=== PATIENT | female | born 1955 | race Two or more races ===

== ENCOUNTER 2019-05-02 16:45 | Emergency (ER) | payer OTHER ==
[~2019-05-02] VITALS: Ht 175.3 cm; Wt 141.5 kg
[2019-05-02 17:06] VITALS: BP 120/86
[2019-05-02 17:51] LABS: Basophils # (auto) 0.1 uL; Basophils % (auto) 0.9 % (0.0-2.0); Eosinophils # (auto) 0.2 uL; Eosinophils % (auto) 2.6 % (0.0-7.0); Hematocrit 48.8 % (36.0-46.0); Hemoglobin 16.1 g/dL (12.2-16.2); Lymphocytes # (auto) 1.4 uL; Lymphocytes % (auto) 18.1 % (10.0-50.0); Mean Corpuscular Hemoglobin 30.9 pg (28.0-32.0); Mean Corpuscular Volume 93.7 fL (80.0-100.0); Monocytes # (auto) 0.5 uL; Neutrophils # (auto) 5.6 uL; Neutrophils % (auto) 71.4 % (37.0-80.0); Nucleated Red Blood Cells % 0.1 %; Platelet Count (auto) 260 10^3/uL (140-450); Red Cell Distribution Width 14.4 % (11.8-14.3); White Blood Cell 7.8 10^3/uL (4.4-10.8)
[2019-05-02 17:52] LABS: Alanine Aminotransferase 23 U/L (13-56); Albumin 3.6 g/dL (3.4-5.0); Anion Gap 6 (5-15); Blood Urea Nitrogen 17 mg/dL (7-18); Calcium 8.6 mg/dL (8.5-10.1); Carbon Dioxide 29 mmol/L (21-32); Chloride 105 mmol/L (98-107); Glucose 108 mg/dL (74-106); Potassium 4.3 mmol/L (3.5-5.1); Sodium 140 mmol/L (136-145)
[2019-05-02 17:57] LABS: Alkaline Phosphatase 103 U/L (45-117); Aspartate Aminotransferase 30 U/L (15-37); BUN/Creatinine Ratio 20.5; Bilirubin, Total 0.6 mg/dL (0.2-1.0); GFR African American 90 mL/min; GFR Non-African American 74 mL/min; Total Protein 7.8 g/dL (6.4-8.2)
== END 2019-05-02 23:19 | disposition left against medical advice (07) ==
LOC: ER 16:56
DX: R55 Syncope and collapse (principal); F41.9 Anxiety disorder, unspecified; Z53.21 Procedure and treatment not carried out due to patient leaving prior to being seen by health care provider
CPT/HCPCS: 36415; 71045; 80053; 84484; 85025; 93005

== ENCOUNTER 2019-08-13 08:19 | Emergency (ER) | payer OTHER ==
[~2019-08-13] VITALS: Ht 175.3 cm; Wt 113.4 kg
[2019-08-13 08:57] LABS: Basophils # (auto) 0.1 uL; Basophils % (auto) 1.5 % (0.0-2.0); Eosinophils # (auto) 0.1 uL; Eosinophils % (auto) 1.9 % (0.0-7.0); Hemoglobin 16.7 g/dL (12.2-16.2); Lymphocytes % (auto) 23.9 % (10.0-50.0); Mean Corpuscular Hemoglobin 31.1 pg (28.0-32.0); Mean Corpuscular Hgb Conc. 33.3 g/dL (32.0-36.0); Mean Corpuscular Volume 93.4 fL (80.0-100.0); Monocytes # (auto) 0.6 uL; Monocytes % (auto) 13.9 % (0.0-12.0); Neutrophils # (auto) 2.4 uL; Neutrophils % (auto) 58.8 % (37.0-80.0); Nucleated Red Blood Cells % 0.2 %; Platelet Count (auto) 177 10^3/uL (140-450); Red Blood Cells 5.36 10^6/uL (4.0-5.20); Red Cell Distribution Width 14.7 % (11.8-14.3); White Blood Cell 4.1 10^3/uL (4.4-10.8)
[2019-08-13 09:14] LABS: Albumin 3.4 g/dL (3.4-5.0); Anion Gap 5 (5-15); Blood Urea Nitrogen 18 mg/dL (7-18); Calcium 8.4 mg/dL (8.5-10.1); Carbon Dioxide 27 mmol/L (21-32); Chloride 109 mmol/L (98-107); Glucose 93 mg/dL (74-106); Sodium 141 mmol/L (136-145)
[2019-08-13 09:20] LABS: Alanine Aminotransferase 21 U/L (13-56); Alkaline Phosphatase 65 U/L (45-117); Aspartate Aminotransferase 18 U/L (15-37); BUN/Creatinine Ratio 23.1; Bilirubin, Total 0.5 mg/dL (0.2-1.0); GFR African American 96 mL/min; GFR Non-African American 80 mL/min; Total Protein 7.7 g/dL (6.4-8.2)
[2019-08-13 11:34] VITALS: BP 128/75
== END 2019-08-13 11:35 | disposition home or self-care (01) ==
LOC: EDBD 08:19 → ER 08:27
DX: F41.9 Anxiety disorder, unspecified (principal); E78.5 Hyperlipidemia, unspecified; Z87.891 Personal history of nicotine dependence
CPT/HCPCS: 36415; 71045; 80053; 83880; 84484; 85025; 93005

== ENCOUNTER 2020-04-09 09:58 | Emergency (ER) | payer OTHER ==
[~2020-04-09] VITALS: Ht 175.3 cm; Wt 140.2 kg
[2020-04-09 10:45] LABS: Basophils # (auto) 0.1 10 ^3/uL (0-0.2); Basophils % (auto) 0.7 % (0.0-2.0); Eosinophils # (auto) 0.2 10 ^3/uL (0-0.8); Hematocrit 50.6 % (36.0-46.0); Hemoglobin 17.2 g/dL (12.2-16.2); Lymphocytes # (auto) 0.8 10 ^3/uL (0.4-5.4); Lymphocytes % (auto) 10.5 % (10.0-50.0); Mean Corpuscular Hemoglobin 32.2 pg (28.0-32.0); Mean Corpuscular Hgb Conc. 33.9 g/dL (32.0-36.0); Mean Corpuscular Volume 94.9 fL (80.0-100.0); Monocytes # (auto) 0.4 10 ^3/uL (0-1.3); Monocytes % (auto) 5.5 % (0.0-12.0); Neutrophils # (auto) 6.5 10 ^3/uL (1.6-8.6); Neutrophils % (auto) 81.3 % (37.0-80.0); Platelet Count (auto) 249 10^3/uL (140-450); Red Blood Cells 5.34 10^6/uL (4.0-5.20)
[2020-04-09 11:12] LABS: Albumin 3.9 g/dL (3.4-5.0); Anion Gap 3 (5-15); Blood Urea Nitrogen 14 mg/dL (7-18); Calcium 9.1 mg/dL (8.5-10.1); Carbon Dioxide 28 mmol/L (21-32); Chloride 106 mmol/L (98-107); Glucose 101 mg/dL (74-106); Potassium 3.9 mmol/L (3.5-5.1); Sodium 137 mmol/L (136-145)
[2020-04-09 11:18] LABS: Alanine Aminotransferase 26 U/L (13-56); Alkaline Phosphatase 84 U/L (45-117); Aspartate Aminotransferase 13 U/L (15-37); BUN/Creatinine Ratio 13.9; Bilirubin, Total 0.8 mg/dL (0.2-1.0); GFR African American 71 mL/min; GFR Non-African American 59 mL/min; Total Protein 8.6 g/dL (6.4-8.2)
[2020-04-09 16:44] VITALS: BP 127/85
[2020-04-09 17:15] LABS: INR 2.05 (0.9-1.15)
== END 2020-04-09 17:32 | disposition home or self-care (01) ==
LOC: ER 09:58
DX: R60.0 Localized edema (principal); I50.9 Heart failure, unspecified; I48.91 Unspecified atrial fibrillation; E78.5 Hyperlipidemia, unspecified; Z85.3 Personal history of malignant neoplasm of breast; Z88.6 Allergy status to analgesic agent
CPT/HCPCS: 36415; 80053; 83880; 84484; 85025; 85610; 85730; 93005; 93971

== ENCOUNTER 2021-10-24 12:30 | Emergency (ER) | payer OTHER ==
[~2021-10-24] VITALS: Ht 175.3 cm; Wt 145.1 kg
[2021-10-24 14:17] LABS: Basophils # (auto) 0.1 10 ^3/uL (0-0.2); Eosinophils # (auto) 0.2 10 ^3/uL (0-0.8); Eosinophils % (auto) 2.8 % (0.0-7.0); Hematocrit 46.5 % (36.0-46.0); Hemoglobin 15.4 g/dL (12.2-16.2); Lymphocytes # (auto) 1.2 10 ^3/uL (0.4-5.4); Mean Corpuscular Hemoglobin 30.8 pg (28.0-32.0); Mean Corpuscular Hgb Conc. 33.2 g/dL (32.0-36.0); Mean Corpuscular Volume 92.6 fL (80.0-100.0); Monocytes # (auto) 0.6 10 ^3/uL (0-1.3); Monocytes % (auto) 8.6 % (0.0-12.0); Neutrophils # (auto) 5.1 10 ^3/uL (1.6-8.6); Neutrophils % (auto) 70.6 % (37.0-80.0); Nucleated Red Blood Cells % 0.1 %; Red Blood Cells 5.02 10^6/uL (4.0-5.20); Red Cell Distribution Width 14.1 % (11.8-14.3); White Blood Cell 7.2 10^3/uL (4.4-10.8)
[2021-10-24 14:59] LABS: Albumin 3.4 g/dL (3.4-5.0); Calcium 9.1 mg/dL (8.5-10.1); Potassium 4.1 mmol/L (3.5-5.1)
[2021-10-24 15:06] LABS: Bilirubin, Total 0.8 mg/dL (0.2-1.0); Total Protein 7.3 g/dL (6.4-8.2)
[2021-10-24 15:23] VITALS: BP 120/70
[2021-10-24 15:50] LABS: Urine Bacteria NONE SEEN /hpf (None Seen); Urine Blood Negative /uL (Negative); Urine WBC 1 /hpf (0 - 5)
== END 2021-10-24 16:15 | disposition home or self-care (01) ==
LOC: ER 12:30
DX: M79.10 Myalgia, unspecified site (principal); R07.89 Other chest pain; M50.30 Other cervical disc degeneration, unspecified cervical region; I48.91 Unspecified atrial fibrillation; E78.5 Hyperlipidemia, unspecified; Z87.891 Personal history of nicotine dependence; Z88.5 Allergy status to narcotic agent; V49.9XXA Car occupant (driver) (passenger) injured in unspecified traffic accident, initial encounter; Y93.89 Activity, other specified; Y92.89 Other specified places as the place of occurrence of the external cause; Y99.8 Other external cause status
CPT/HCPCS: 36415; 71250; 72125; 80053; 81001; 83880; 84484; 85025; 93005

== ENCOUNTER 2023-03-20 09:08 | Emergency (ER) | payer OTHER ==
[~2023-03-20] VITALS: Ht 175.3 cm; Wt 137.7 kg
[~2023-03-20 09:08] MED LIST: DEX4T PO
[2023-03-20] MEDS ORDERED: TRAM50TA2 PO (10:36)
[2023-03-20 10:45] VITALS: BP 125/79; PULSE 98; RESP 18; O2SAT 98
== END 2023-03-20 10:53 | disposition home or self-care (01) ==
LOC: ER 09:08
DX: S16.1XXA Strain of muscle, fascia and tendon at neck level, initial encounter (principal); S39.012A Strain of muscle, fascia and tendon of lower back, initial encounter; E78.5 Hyperlipidemia, unspecified; I48.91 Unspecified atrial fibrillation; Z85.9 Personal history of malignant neoplasm, unspecified; Z98.890 Other specified postprocedural states; Z87.891 Personal history of nicotine dependence; Z88.6 Allergy status to analgesic agent; Z79.899 Other long term (current) drug therapy; W07.XXXA Fall from chair, initial encounter; Y93.89 Activity, other specified; Y92.89 Other specified places as the place of occurrence of the external cause; Y99.8 Other external cause status
CPT/HCPCS: 72040; 72100; 72220

== ENCOUNTER 2023-04-12 09:08 | Emergency (ER) | payer OTHER ==
[~2023-04-12] VITALS: Ht 175.3 cm; Wt 128.8 kg
[~2023-04-12 09:08] MED LIST changes: +TRAM50TA2 PO
[2023-04-12 09:41] VITALS: BP 153/74; PULSE 87; RESP 18; TEMP 97.9; O2SAT 100
[2023-04-12] MEDS ORDERED: TETANUS-DIPTH-ACEL PERTUSSIS 0.5ML SYR Tdap IM ONE (09:45)
[2023-04-12] MEDS ORDERED: AUG875T PO (09:45)
== END 2023-04-12 10:05 | disposition home or self-care (01) ==
LOC: ER 09:08
DX: S81.831A Puncture wound without foreign body, right lower leg, initial encounter (principal); S80.811A Abrasion, right lower leg, initial encounter; I48.91 Unspecified atrial fibrillation; E78.5 Hyperlipidemia, unspecified; Z88.5 Allergy status to narcotic agent; Z79.899 Other long term (current) drug therapy; Z87.891 Personal history of nicotine dependence; W55.01XA Bitten by cat, initial encounter; Y93.89 Activity, other specified; Y92.89 Other specified places as the place of occurrence of the external cause; Y99.8 Other external cause status
CPT/HCPCS: 90471; 90715

== ENCOUNTER 2023-08-29 08:58 | Emergency (ER) | payer OTHER ==
[~2023-08-29] VITALS: Ht 175.3 cm; Wt 138.8 kg
[~2023-08-29 08:58] MED LIST changes: +AUG875T PO
[2023-08-29 09:37] VITALS: BP 183/92; PULSE 78; RESP 18; TEMP 97.8; O2SAT 95
[2023-08-29 10:02] LABS: Urine Bacteria FEW /hpf (None Seen); Urine Blood Negative /uL (Negative); Urine Clarity HAZY (Clear); Urine Color Yellow (Yellow); Urine Hyaline Cast FEW /lpf (0 - 2); Urine Mucus FEW (None Seen); Urine Protein, UAD TRACE (Negative); Urine Specific Gravity 1.023 (1.001-1.035); Urine Urobilinogen Normal (Negative); Urine WBC 2 /hpf (0 - 5); Urine pH 6.5 (5.0-8.0)
[2023-08-29] MEDS ORDERED: TRAM50TA2 PO (10:30)
[2023-08-29] MEDS ORDERED: TRIA0.1O TOP (10:30)
== END 2023-08-29 10:40 | disposition home or self-care (01) ==
LOC: ER 08:58
DX: M51.16 Intervertebral disc disorders with radiculopathy, lumbar region (principal); L20.9 Atopic dermatitis, unspecified; N39.0 Urinary tract infection, site not specified
CPT/HCPCS: 72100; 81001

== ENCOUNTER 2023-10-15 07:13 | Emergency (ER) | payer MEDICARE, OTHER ==
[~2023-10-15] VITALS: Ht 175.3 cm; Wt 138.5 kg
[~2023-10-15 07:13] MED LIST changes: +TRIA0.1O TOP
[2023-10-15 07:15] VITALS: TEMP 97
[2023-10-15 07:23] VITALS: BP 157/75; PULSE 107
[2023-10-15 07:28] VITALS: RESP 20; O2SAT 94
[2023-10-15] MEDS: ALBUTEROL SULF 2.5 MG/0.5ML(0.5%) NEB SOLN NEB ONE (08:20)
[2023-10-15] MEDS: IPRATROPIUM BROM 0.5 MG/2.5ML INH SOL NEB ONE (08:20)
[2023-10-15 08:25] VITALS: RESP 16; O2SAT 98
[2023-10-15] MEDS ORDERED: OMEP-434 PO (08:34)
[2023-10-15] MEDS ORDERED: ALBU108A5 IN (08:34)
== END 2023-10-15 08:47 | disposition home or self-care (01) ==
LOC: ER 07:13
DX: K21.9 Gastro-esophageal reflux disease without esophagitis (principal); E78.5 Hyperlipidemia, unspecified; Z87.891 Personal history of nicotine dependence
CPT/HCPCS: 71046; 93005; 94640; 99283; J7644

== ENCOUNTER 2024-05-31 08:57 | Inpatient (IN) | payer OTHER, MEDICARE ==
[~2024-05-31] VITALS: Ht 175.3 cm; Wt 127.7 kg
[~2024-05-31 08:57] MED LIST changes: +ALBU108A5 IN; +OMEP-434 PO
[2024-05-31 09:42] LABS: Basophils # (auto) 0.1 10 ^3/uL (0-0.2); Basophils % (auto) 1.1 % (0.0-2.0); Eosinophils # (auto) 0.2 10 ^3/uL (0-0.8); Eosinophils % (auto) 2.3 % (0.0-7.0); Hematocrit 51.7 % (36.0-46.0); Hemoglobin 17.3 g/dL (12.2-16.2); Lymphocytes # (auto) 1.2 10 ^3/uL (0.4-5.4); Lymphocytes % (auto) 13.7 % (10.0-50.0); Mean Corpuscular Hemoglobin 31.5 pg (28.0-32.0); Mean Corpuscular Hgb Conc. 33.5 g/dL (32.0-36.0); Mean Corpuscular Volume 93.9 fL (80.0-100.0); Monocytes # (auto) 0.6 10 ^3/uL (0-1.3); Monocytes % (auto) 6.5 % (0.0-12.0); Neutrophils # (auto) 6.5 10 ^3/uL (1.6-8.6); Neutrophils % (auto) 76.4 % (37.0-80.0); Nucleated Red Blood Cells % 0.1 %; Platelet Count (auto) 261 10^3/uL (140-450); Red Cell Distribution Width 14.1 % (11.8-14.3); White Blood Cell 8.6 10^3/uL (4.4-10.8)
[2024-05-31 09:45] VITALS: PULSE 77; RESP 18; O2SAT 94
[2024-05-31 09:50] LABS: Alanine Aminotransferase 15 U/L (7-40); Albumin 4.5 g/dL (3.2-4.8); Alkaline Phosphatase 80 U/L (46-116); Anion Gap 5 (5-15); Aspartate Aminotransferase 13 U/L (13-40); BUN/Creatinine Ratio 14.7 (10.0-20.0); Bilirubin, Total 0.8 mg/dL (0.2-1.0); Blood Urea Nitrogen 14 mg/dL (9-23); Calcium 10.7 mg/dL (8.7-10.4); Carbon Dioxide 28 mmol/L (20-31); Chloride 105 mmol/L (98-107); Glucose 98 mg/dL (74-106); Sodium 138 mmol/L (136-145); Total Protein 7.9 g/dL (5.7-8.2)
[2024-05-31 10:37] LABS: Urine Bacteria None Seen /hpf (None Seen)
[2024-05-31 10:48] LABS: Urine Blood Negative /uL (Negative); Urine Clarity Clear (Clear); Urine Color Light-Yellow (Yellow); Urine Protein, UAD TRACE (Negative); Urine Urobilinogen Normal (Negative); Urine WBC 1 /hpf (0 - 5); Urine pH 6.5 (5.0-9.0)
[2024-05-31] MEDS ORDERED: ONDANSETRON HCL 4 MG/2 ML VIAL IV PRN (14:00)
[2024-05-31] MEDS ORDERED: HYDROcodone-ACET 5/325MG TAB PO PRN (14:00)
[2024-05-31] MEDS ORDERED: HYDROmorphone HCL 2 MG/ML VL/or syr IV PRN (14:00)
[2024-05-31] MEDS: SODIUM CHLOR 0.9% PF (SALINE LOCK) 10ML VIAL/SYR IV SCH (15:13)
[2024-05-31] MEDS: DIGOXIN 0.125 MG TAB PO SCH (15:46)
[2024-05-31] MEDS: ALPRAZolam 0.25 MG TAB PO ONE (16:27)
[2024-05-31 16:59] LABS: INR 2.18 (0.9-1.15); Partial Thromboplastin Time 39.6 SEC (24.5-34.5); Prothrombin Time 21.8 sec (9.3-11.8)
[2024-05-31 17:36] VITALS: O2SAT 98
[2024-05-31 18:09] VITALS: BP 163/108; PULSE 95; RESP 20; TEMP 97.7; O2SAT 96
[2024-05-31 19:34] VITALS: BP 147/74; PULSE 85; RESP 18; TEMP 98.9; O2SAT 96
[2024-05-31 21:00] VITALS: BP 147/89; PULSE 71; RESP 20; TEMP 98.1; O2SAT 94
[2024-06-01] VITALS (8 sets, daily range): BP systolic 111–156; BP diastolic 46–99; PULSE 72–89; RESP 16–22; TEMP 98–98.7; O2SAT 91–99
[2024-06-01 07:28] LABS: Basophils # (auto) 0.1 10 ^3/uL (0-0.2); Basophils % (auto) 1.1 % (0.0-2.0); Eosinophils # (auto) 0.2 10 ^3/uL (0-0.8); Eosinophils % (auto) 2.8 % (0.0-7.0); Hematocrit 49.4 % (36.0-46.0); Hemoglobin 16.8 g/dL (12.2-16.2); Lymphocytes % (auto) 13.7 % (10.0-50.0); Mean Corpuscular Hemoglobin 31.8 pg (28.0-32.0); Mean Corpuscular Hgb Conc. 34.1 g/dL (32.0-36.0); Mean Corpuscular Volume 93.5 fL (80.0-100.0); Monocytes # (auto) 0.5 10 ^3/uL (0-1.3); Monocytes % (auto) 7.2 % (0.0-12.0); Neutrophils # (auto) 5.4 10 ^3/uL (1.6-8.6); Neutrophils % (auto) 75.2 % (37.0-80.0); Nucleated Red Blood Cells % 0.2 %; Platelet Count (auto) 237 10^3/uL (140-450); Red Blood Cells 5.28 10^6/uL (4.0-5.20); Red Cell Distribution Width 14.3 % (11.8-14.3); White Blood Cell 7.2 10^3/uL (4.4-10.8)
[2024-06-01 07:41] LABS: Alanine Aminotransferase 17 U/L (7-40); Albumin 4.3 g/dL (3.2-4.8); Alkaline Phosphatase 73 U/L (46-116); Anion Gap 8 (5-15); Aspartate Aminotransferase 20 U/L (13-40); BUN/Creatinine Ratio 19.5 (10.0-20.0); Blood Urea Nitrogen 16 mg/dL (9-23); Calcium 10.1 mg/dL (8.7-10.4); Carbon Dioxide 25 mmol/L (20-31); Chloride 107 mmol/L (98-107); Glucose 90 mg/dL (74-106); Potassium 4.2 mmol/L (3.5-5.1); Sodium 140 mmol/L (136-145)
[2024-06-01 07:42] LABS: Bilirubin, Total 1.2 mg/dL (0.2-1.0); Total Protein 7.2 g/dL (5.7-8.2)
[2024-06-01] MEDS: ACETAMINOPHEN 325 MG TAB PO PRN (07:50)
[2024-06-01] MEDS: PANTOPRAZOLE 40 MG TAB PO SCH (09:39)
[2024-06-01] MEDS ORDERED: ENOXAPARIN SOD 40 MG/0.4 ML SYRINGE SC SCH (10:00)
[2024-06-01] MEDS ORDERED: FLUO20TA42 PO (12:00)
[2024-06-01] MEDS ORDERED: DILT360C6 PO (12:01)
[2024-06-01 12:54] LABS: INR 1.84 (0.9-1.15); Partial Thromboplastin Time 37.3 SEC (24.5-34.5); Prothrombin Time 18.6 sec (9.3-11.8)
[2024-06-01] MEDS: WARFARIN SODIUM 5 MG TAB PO ONE (16:49)
[2024-06-01] MEDS: DOCUSATE SOD 100 MG CAP PO PRN (16:49)
[2024-06-01] MEDS ORDERED: FLUO1TAB12 PO (17:26)
[2024-06-01] MEDS ORDERED: DILT180C49 PO (17:26)
[2024-06-01] MEDS ORDERED: PRAV20TA3 PO (17:28)
[2024-06-01] MEDS ORDERED: WARF-66 PO (17:28)
[2024-06-01] MEDS ORDERED: TEMAZEPAM 15 MG CAP PO PRN (22:15)
[2024-06-01] MEDS: FLUoxetine HCL 10 MG CAP PO SCH (22:48)
[2024-06-01] MEDS: LORazepam 0.5 MG TAB PO PRN (22:53)
[2024-06-02 01:10] VITALS: BP 153/84; PULSE 84; RESP 17; TEMP 97.5; O2SAT 93
[2024-06-02 07:27] LABS: Basophils # (auto) 0.1 10 ^3/uL (0-0.2); Basophils % (auto) 0.9 % (0.0-2.0); Eosinophils # (auto) 0.2 10 ^3/uL (0-0.8); Eosinophils % (auto) 2.8 % (0.0-7.0); Hemoglobin 17.1 g/dL (12.2-16.2); Lymphocytes % (auto) 15.7 % (10.0-50.0); Mean Corpuscular Hemoglobin 32.1 pg (28.0-32.0); Mean Corpuscular Hgb Conc. 34.2 g/dL (32.0-36.0); Mean Corpuscular Volume 93.9 fL (80.0-100.0); Monocytes # (auto) 0.5 10 ^3/uL (0-1.3); Monocytes % (auto) 8.1 % (0.0-12.0); Neutrophils # (auto) 4.7 10 ^3/uL (1.6-8.6); Neutrophils % (auto) 72.5 % (37.0-80.0); Nucleated Red Blood Cells % 0.1 %; Platelet Count (auto) 241 10^3/uL (140-450); Red Blood Cells 5.32 10^6/uL (4.0-5.20); Red Cell Distribution Width 14.2 % (11.8-14.3); White Blood Cell 6.5 10^3/uL (4.4-10.8)
[2024-06-02 07:51] LABS: Alanine Aminotransferase 14 U/L (7-40); Albumin 4.2 g/dL (3.2-4.8); Alkaline Phosphatase 75 U/L (46-116); Anion Gap 9 (5-15); Aspartate Aminotransferase 12 U/L (13-40); BUN/Creatinine Ratio 16.3 (10.0-20.0); Bilirubin, Total 0.9 mg/dL (0.2-1.0); Blood Urea Nitrogen 16 mg/dL (9-23); Calcium 10.4 mg/dL (8.7-10.4); Carbon Dioxide 25 mmol/L (20-31); Chloride 106 mmol/L (98-107); Glucose 101 mg/dL (74-106); Potassium 3.9 mmol/L (3.5-5.1); Sodium 140 mmol/L (136-145)
[2024-06-02 07:52] LABS: Total Protein 7.4 g/dL (5.7-8.2)
[2024-06-02 09:00] VITALS: BP 156/91; PULSE 88; RESP 20; TEMP 98; O2SAT 97
[2024-06-02] MEDS: dilTIAZem HCL 180MG ER CAP PO SCH (10:50)
[2024-06-02 13:00] VITALS: BP_SYST 148; BP_SYST 176; BP_SYST 181; BP_DIAS 100; BP_DIAS 114; BP_DIAS 134; PULSE 83; RESP 20; TEMP 97.3; O2SAT 95
[2024-06-02 16:42] VITALS: BP 134/99; PULSE 68; RESP 22; TEMP 98.7; O2SAT 97
[2024-06-02] MEDS ORDERED: hydrALAZINE HCL 20 MG/ML VL IV PRN (16:45)
[2024-06-02 16:58] LABS: INR 1.75 (0.9-1.15); Partial Thromboplastin Time 36.6 SEC (24.5-34.5); Prothrombin Time 17.8 sec (9.3-11.8)
[2024-06-02] MEDS ORDERED: LOSA-533 PO (17:45)
[2024-06-02] MEDS ORDERED: MECL1TAB42 PO (17:45)
[2024-06-02] MEDS ORDERED: TRAZ-228 PO (17:52)
[2024-06-02] MEDS: LOSARTAN POTASSIUM 25 MG TAB PO ONE (19:03)
[2024-06-02] MEDS: WARFARIN SODIUM 5 MG TAB PO ONE (19:04)
[2024-06-02 20:00] VITALS: PULSE 81; RESP 18; O2SAT 95
[2024-06-02 21:03] VITALS: BP 140/76; PULSE 81; RESP 21; TEMP 97.6; O2SAT 93
[2024-06-03 00:57] VITALS: BP 156/110; PULSE 76; RESP 20; TEMP 97.1; O2SAT 94
[2024-06-03 05:00] VITALS: BP 149/78; PULSE 90; RESP 20; TEMP 98.2; O2SAT 96
[2024-06-03 06:59] LABS: INR 1.89 (0.9-1.15); Partial Thromboplastin Time 38.2 SEC (24.5-34.5); Prothrombin Time 19.1 sec (9.3-11.8)
[2024-06-03 07:02] LABS: Basophils # (auto) 0.1 10 ^3/uL (0-0.2); Basophils % (auto) 0.9 % (0.0-2.0); Eosinophils # (auto) 0.3 10 ^3/uL (0-0.8); Eosinophils % (auto) 3.7 % (0.0-7.0); Hematocrit 49.4 % (36.0-46.0); Hemoglobin 16.6 g/dL (12.2-16.2); Lymphocytes # (auto) 1.2 10 ^3/uL (0.4-5.4); Lymphocytes % (auto) 14.8 % (10.0-50.0); Mean Corpuscular Hemoglobin 31.7 pg (28.0-32.0); Mean Corpuscular Hgb Conc. 33.6 g/dL (32.0-36.0); Mean Corpuscular Volume 94.4 fL (80.0-100.0); Monocytes # (auto) 0.7 10 ^3/uL (0-1.3); Monocytes % (auto) 9.1 % (0.0-12.0); Neutrophils # (auto) 5.6 10 ^3/uL (1.6-8.6); Neutrophils % (auto) 71.5 % (37.0-80.0); Nucleated Red Blood Cells % 0.1 %; Platelet Count (auto) 255 10^3/uL (140-450); Red Blood Cells 5.23 10^6/uL (4.0-5.20); Red Cell Distribution Width 14.2 % (11.8-14.3); White Blood Cell 7.8 10^3/uL (4.4-10.8)
[2024-06-03 07:10] LABS: Alanine Aminotransferase 15 U/L (7-40); Albumin 4.2 g/dL (3.2-4.8); Alkaline Phosphatase 76 U/L (46-116); Anion Gap 3 (5-15); Aspartate Aminotransferase 13 U/L (13-40); BUN/Creatinine Ratio 14.4 (10.0-20.0); Blood Urea Nitrogen 13 mg/dL (9-23); Calcium 9.9 mg/dL (8.7-10.4); Carbon Dioxide 26 mmol/L (20-31); Chloride 109 mmol/L (98-107); Glucose 94 mg/dL (74-106); Potassium 4.1 mmol/L (3.5-5.1); Sodium 138 mmol/L (136-145)
[2024-06-03 07:12] LABS: Bilirubin, Total 0.7 mg/dL (0.2-1.0); Total Protein 7.2 g/dL (5.7-8.2)
[2024-06-03 09:26] VITALS: BP 129/87; PULSE 75; RESP 19; TEMP 97.9; O2SAT 96
[2024-06-03] MEDS: LOSARTAN POTASSIUM 25 MG TAB PO SCH (09:51)
[2024-06-03] MEDS ORDERED: WARFARIN SODIUM 5 MG TAB PO ONE (17:00)
== END 2024-06-03 12:30 | disposition home or self-care (01) | DRG 305 ==
LOC: ER 08:57 → OVERFLOW 13:53 → CENTRAL 17:44
PROVIDERS: ADMIT Internal Medicine; ATTEND Student in an Organized Health Care Education/Training Program
DX: I16.0 Hypertensive urgency (principal); I48.20 Chronic atrial fibrillation, unspecified; G47.00 Insomnia, unspecified; F41.9 Anxiety disorder, unspecified; F17.200 Nicotine dependence, unspecified, uncomplicated; D75.1 Secondary polycythemia; E78.5 Hyperlipidemia, unspecified; R26.81 Unsteadiness on feet; Z90.710 Acquired absence of both cervix and uterus; Z88.5 Allergy status to narcotic agent; Z79.01 Long term (current) use of anticoagulants; Z79.899 Other long term (current) drug therapy; Z82.3 Family history of stroke; Z83.3 Family history of diabetes mellitus; Z85.3 Personal history of malignant neoplasm of breast
CPT/HCPCS: 36415; 70450; 70551; 80053; 80162; 81001; 82533; 82962; 84484; 85025; 85610; 85730; 93005; 93886; 97163; 99291; G0378

== ENCOUNTER 2024-07-02 10:25 | Emergency (ER) | payer OTHER, MEDICARE ==
[~2024-07-02] VITALS: Ht 175.3 cm; Wt 132.5 kg
[~2024-07-02 10:25] MED LIST changes: -AUG875T PO; -DEX4T PO; +DILT180C49 PO; +FLUO1TAB12 PO; +LOSA-533 PO; +MECL1TAB42 PO; +PRAV20TA3 PO; -TRAM50TA2 PO; +TRAZ-228 PO; -TRIA0.1O TOP; +WARF-66 PO
[2024-07-02 11:26] VITALS: BP 146/86; PULSE 106; RESP 16; TEMP 98.6; O2SAT 96
[2024-07-02] MEDS ORDERED: AUG875T PO (11:29)
[2024-07-02] MEDS ORDERED: TOB03OS OP (11:29)
[2024-07-02] MEDS ORDERED: PRED20TA2 PO (11:29)
--- NOTE | 2024-07-02 11:31 | ED.PDOC ---
Eye-HPI HPI Comments A 68 YEAR OLD FEMALE PRESENTS TO THE ED WITH COMPLAINT OF EARACHE. PATIENT REPORTS THAT SHE HAS BEEN EXPERIENCING LEFT EAR PAIN AND DIFFICULTY HEARING FOR THE PAST FEW DAYS ALONG WITH ASSOCIATED SINUS PRESSURE/PAIN AND BILATERAL EYE DISCHARGE. PATIENT RELAYS THAT SHE WAS RECENTLY ADMITTED FOR DIZZINESS AND WAS SEEN BY A NEUROLOGIST, BUT NO ONE HAD CHECKED HER EARS. PATIENT DENIES FEVER, CHILLS, SHORTNESS OF BREATH, CHEST PAIN, ABDOMINAL PAIN, NAUSEA, VOMITING, HEADACHE, OR OTHER COMPLAINTS. NO OTHER SYMPTOMS OR MODIFYING FACTORS AT THIS TIME. Chief Complaint: Earache Time Seen by MD: 11:27 Primary Care Provider: [facility] Reviewed Notes: Nurses Notes, Medications, Allergies Allergies: Coded Allergies: Morphine (Verified Allergy, Unknown, 05/02/19) Home Meds Active Scripts Prednisone (Prednisone) 20 Mg Tab, 60 MG PO DAILY, #21 MG Prov:MADI MILLER 07/02/24 Tobramycin Sulfate (Tobrex) [address], 2 DROP OP QID, #5 ML Prov:MADI MILLER 07/02/24 Amoxicillin & Pot Clavulanate (AUGMENTIN TABLET) 875 Mg Tb, 875 MG PO BID for 10 Days, #20 TAB Prov:MADI MILLER 07/02/24 Trazodone Hcl (Trazodone Hcl) 100 Mg Tab, 1 TAB PO QPM PRN, #30 TAB 0 Refills Prov:RUDDY MURRAY MD 06/02/24 Meclizine HCl (Meclizine 25) 25 Mg Tab, 25 MG PO QPM for 14 Days, #14 TAB Prov:RUDDY MURRAY MD 06/02/24 Losartan Potassium (Losartan Potassium) 25 Mg Tab, 12.5 MG PO QPM for 30 Days, #15 TAB 1 Refill Prov:RUDDY MURRAY MD 06/02/24 Omeprazole Magnesium (Omeprazole) 20 Mg Tab, 20 MG PO DAILY, #30 TAB Prov:THA SANDS 10/15/23 Albuterol Sulfate (Albuterol Sulfate Hfa) 108 Mcg/Act Aer, 108 MCG IN TID, #1 AER Prov:THA SANDS 10/15/23 Reported Medications Warfarin Sodium (Warfarin Sodium) 5 Mg Tab, 2 TAB PO QPM, MG 2 TABLETS (10 MG TOTAL) BY MOUTH AT NIGHT FOR CHRONIC ATRIAL FIBRILLATION 06/01/24 Pravastatin Sodium (PRAVACHOL TABLET) 20 Mg Tb, 10 MG PO DAILY, TAB 06/01/24 Diltiazem Hcl (Dilt-Xr) 180 Mg Cap, 180 MG PO BID, CAP 06/01/24 Fluoxetine HCl (Pmdd) (Fluoxetine HCl) 10 Mg Tab, 30 MG PO DAILY, TAB 06/01/24 Information Source: Patient Mode of Arrival: Ambulatory Timing: Days Duration: Since onset Prehospital treatment: None Quality: Pain, Discharge Eye Location: Bilateral Lids: Normal Conjunctiva: Discharge Cornea: Normal EOM: Normal Fundus: Normal Anterior chamber: Normal ENT Ear Exam: Red Sinuses: Tender, Frontal Onset: Spontaneous Throat Exposed to: None History of: None Last Tetanus: Unknown Associated signs and symptoms: Discharge, Ear Pain Past Medical History PAST MEDICAL HISTORY: AFIB, Cancer, High Lipids Surgical History: Hysterectomy 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 Family History Family History: Family hx of DM, Family hx of Cancer Social History Smoker: Quit Greater Than 1 Year Alcohol: Denies ETOH Use Drugs: Denies Drug Use Lives In: Home Constitutional: denies: chills, diaphoresis, fatigue, fever, malaise, sweats, weakness, others EENTM: reports: ear pain (LEFT), ear ringing, eye redness, nose congestion (SINUSES), others (SINUS PAIN, EYE DISCHARGE); denies: blurred vision, double vision, ear bleeding, ear discharge, ear drainage, eye pain, hearing loss, mouth pain, mouth swelling, nasal discharge, nose bleeding, nose pain, photophobia, tearing, throat pain, throat swelling, voice changes Respiratory: denies: cough, hemoptysis, orthopnea, SOB at rest, shortness of breath, SOB with excertion, stridor, wheezing, others Cardiovascular: denies: chest pain, dizzy spells, diaphoresis, Dyspnea on exertion, edema, irregular heart beat, left arm pain, lightheadedness, palpitations, PND, syncope, others Gastrointestinal: denies: abdomen distended, abdominal pain, blood streaked bowels, constipated, diarrhea, dysphagia, difficulty swallowing, hematemesis, melena, nausea, poor appetite, poor fluid intake, rectal bleeding, rectal pain, vomiting, others Genitourinary: denies: abnormal vagina bleeding, burning, dyspareunia, dysuria, flank pain, frequency, hematuria, incontinence, pain, , vagina discharge, urgency, others Neurological: denies: dizziness, fainting, headache, left sided numbness, left sided weakness, numbness, paresthesia, pre-existing deficit, right sided numbness, right sided weakness, seizure, speech problems, tingling, tremors, weakness, others Musculoskeletal: denies: back pain, gout, joint pain, joint swelling, muscle pain, muscle stiffness, neck pain, others Integumetry: denies: bruises, change in color, change in hair/nails, dryness, laceration, lesions, lumps, rash, wounds, others Allergic/Immunocompromised: denies: Difficulty Healing, Frequent Infections, Hives, Itching, others Hematologic/Lymphatic: denies: anemia, blood clots, easy bleeding, easy bruising, swollen glands, others Endocrine: denies: excessive hunger, excessive sweating, excessive thirst, excessive urination, flushing, intolerance to cold, intolerance to heat, unexplained weight gain, unexplained weight loss, others Psychiatric: denies: anxiety, bipolar disorder, depression, hopeless, panic disorder, schizophrenia, sleepless, suicidal, others All Other Systems: Reviewed and Negative Physical Exam General Appearance: No Apparent Distress, Normal HEENT: PERRL/EOMI, Pharynx Normal, Sinuses (TENDERNESS LEFT MAXILLARY SINUSES WITH POST NASAL DRIP. ), TM Abnormal (L) (ERYTHEMA AND DULL WITH EFFUSION OF LEFT TM. ), Other (BILATERAL CONJUNCTIVA HEMORRHAGE WITH MILD GREEN DISCHARGE. ) Neck: Full Range of Motion, Non-Tender, Normal, Normal Inspection Respiratory: Chest Non-Tender, Lungs Clear, No Accessory Muscle Use, No Respiratory Distress, Normal Breath Sounds Cardiovascular: No Edema, No JVD, No Murmur, No Gallop, Normal Peripheral Pulses, Regular Rate/Rhythm Breast Exam: Deferred Gastrointestinal: No Organomegaly, Non Tender, No Pulsatile Mass, Normal Bowel Sounds, Soft Genitalia: Deferred Pelvic: Deferred Rectal: Deferred Extremities: No calf tenderness, Normal capillary refill, Normal inspection, Normal range of motion, Non-tender, No pedal edema Musculoskeletal : Apperance: Normal Neurologic: Alert, workforce staffing advisor II-XII nml as Tested, No Motor Deficits, Normal Affect, Normal Mood, No Sensory Deficits Cerebellar Function: Normal Reflexes: Normal Skin: Dry, Normal Color, Warm Peripheral Pulses: 2+ carotid (R), 2+ carotid (L) Lymphatic: No Adenopathy Was a procedure done? Was a procedure done?: No EENT DIFF Eye: Conjunctivitis Ear: Otitis Externa, Otitis Media, Sinusitis X-Ray, Labs, Meds, VS Vital Signs Date Time Temp Pulse Resp B/P (MAP) Pulse Ox O2 Delivery O2 Flow Rate FiO2 07/02/24 11: 98.6 106 16 146/86 (106) 96 98.6 07/02/24 11: 106 16 96 Room Air 07/02/24 10:43 98.7 107 18 154/85 (108) 94 Time of 1ST Reevaluation: 11:47 Reevaluation 1ST: Improved Patient Education/Counseling: Diagnosis, Treatment, Need For Follow Up Family Education/Counseling: Diagnosis, Treatment, No Family Present Medical Screening: No EMC Exist At This Time Departure 1 Departure Time of Disposition: 11:47 Impression: Primary Impression: Left otitis media Qualified Codes: H65.02 - Acute serous otitis media, left ear Additional Impressions: Sinusitis Qualified Codes: J01.00 - Acute maxillary sinusitis, unspecified Bilateral conjunctivitis Qualified Codes: H10.33 - Unspecified acute conjunctivitis, bilateral Disposition: 01 HOME / SELF CARE / HOMELESS Condition: Stable Additional Instructions: FOLLOW-UP WITH PCP IN 1 TO 2 DAYS. TAKE MEDICATIONS PRESCRIBED. RETURN TO ED FOR ANY NEW OR WORSENING SYMPTOMS. e-Prescriptions Prednisone (Prednisone) 20 Mg Tab 60 MG PO DAILY, #21 MG Prov: MADI MILLER 07/02/24 Tobramycin Sulfate (Tobrex) [address] 2 DROP OP QID, #5 ML Prov: MADI MILLER 07/02/24 Amoxicillin & Pot Clavulanate (AUGMENTIN TABLET) 875 Mg Tb 875 MG PO BID for 10 Days, #20 TAB Prov: MADI MILLER 07/02/24 Discharged With: Self Critical Care Note Critical Care Time?: No Stability Stability form required: No Heart Score Heart Score: Heart Score Response (Comments) Value History N/A 0 EKG N/A 0 Age N/A 0 Risk Factors N/A 0 Troponin N/A 0 Total 0 I personally scribed for MADI MILLER ([email or web address]) on 07/02/24 at 11:31. El ectronically submitted by Nilay Davlia ([email or web address]). MADI MILLER Jul 02, 2024 11:31
== END 2024-07-02 11:40 | disposition home or self-care (01) ==
LOC: ER 10:25
DX: J32.9 Chronic sinusitis, unspecified (principal); H66.92 Otitis media, unspecified, left ear; I48.91 Unspecified atrial fibrillation; Z79.01 Long term (current) use of anticoagulants; Z79.52 Long term (current) use of systemic steroids; Z79.899 Other long term (current) drug therapy; Z88.5 Allergy status to narcotic agent; Z90.710 Acquired absence of both cervix and uterus; Z87.891 Personal history of nicotine dependence

== ENCOUNTER 2024-10-25 06:52 | Inpatient (IN) | payer OTHER, MEDICARE ==
[~2024-10-25] VITALS: Ht 175.3 cm; Wt 119.0 kg
[~2024-10-25 06:52] MED LIST changes: +AUG875T PO; +PRED20TA2 PO; +TOB03OS OP
--- NOTE | 2024-10-25 07:19 | ED.PDOC ---
GI ASSESSMENT HPI Comments 69-year-old female with PMHx GERD, Breast Cancer, A-Fib, HTN, HLD brought in by EMS presents with a chief complaint of abdominal pain with distention and nausea. Patient states that her abdominal pain is localized to her epigastric region, nonradiating, describes as aching, and rates her pain a 8/10. Patient mentions that she has been having work-up's for her gastro issues at [facility] and recently had an endoscopy and colonoscopy. Patient is on a blood thinner at this time. Patient last bowel movement was yesterday. Chief Complaint: Abdominal Pain Time Seen by MD: 07:05 Primary Care Provider: [facility] Reviewed Notes: Medications, Allergies Allergies: Coded Allergies: Morphine (Verified Allergy, Unknown, 05/02/19) Home Meds Active Scripts Prednisone (Prednisone) 20 Mg Tab, 60 MG PO DAILY, #21 MG Prov:MADI MILLER 07/02/24 Tobramycin Sulfate (Tobrex) [address], 2 DROP OP QID, #5 ML Prov:MADI MILLER 07/02/24 Amoxicillin & Pot Clavulanate (AUGMENTIN TABLET) 875 Mg Tb, 875 MG PO BID for 10 Days, #20 TAB Prov:MADI MILLER 07/02/24 Trazodone Hcl (Trazodone Hcl) 100 Mg Tab, 1 TAB PO QPM PRN, #30 TAB 0 Refills Prov:RUDDY MURRAY MD 06/02/24 Meclizine HCl (Meclizine 25) 25 Mg Tab, 25 MG PO QPM for 14 Days, #14 TAB Prov:RUDDY MURRAY MD 06/02/24 Losartan Potassium (Losartan Potassium) 25 Mg Tab, 12.5 MG PO QPM for 30 Days, #15 TAB 1 Refill Prov:RUDDY MURRAY MD 06/02/24 Omeprazole Magnesium (Omeprazole) 20 Mg Tab, 20 MG PO DAILY, #30 TAB Prov:THA SANDS 10/15/23 Albuterol Sulfate (Albuterol Sulfate Hfa) 108 Mcg/Act Aer, 108 MCG IN TID, #1 AER Prov:THA SANDS 10/15/23 Reported Medications Warfarin Sodium (Warfarin Sodium) 5 Mg Tab, 2 TAB PO QPM, MG 2 TABLETS (10 MG TOTAL) BY MOUTH AT NIGHT FOR CHRONIC ATRIAL FIBRILLATION 06/01/24 Pravastatin Sodium (PRAVACHOL TABLET) 20 Mg Tb, 10 MG PO DAILY, TAB 06/01/24 Diltiazem Hcl (Dilt-Xr) 180 Mg Cap, 180 MG PO BID, CAP 06/01/24 Fluoxetine HCl (Pmdd) (Fluoxetine HCl) 10 Mg Tab, 30 MG PO DAILY, TAB 06/01/24 Information Source: Patient, Emergency Med Personnel Mode of Arrival: EMS Timing: Weeks Duration: Since onset Prehospital treatment: None Quality: Cramping Vomitus: None Stool: Normal Severity: Moderate Recent: None Pain Location: Epigastric Associated sign and symptoms: Nausea, Abdominal Pain Past Medical History PAST MEDICAL HISTORY: AFIB, Cancer, GERD, High Lipids Surgical History: Hysterectomy 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 Family History Family History: Family hx of DM, Family hx of Cancer Social History Smoker: Quit Greater Than 1 Year Alcohol: Denies ETOH Use Drugs: Denies Drug Use Lives In: Home Constitutional: denies: chills, diaphoresis, fatigue, fever, malaise, sweats, weakness, others EENTM: denies: blurred vision, double vision, ear bleeding, ear discharge, ear drainage, ear pain, ear ringing, eye pain, eye redness, hearing loss, mouth pain, mouth swelling, nasal discharge, nose bleeding, nose congestion, nose pain, photophobia, tearing, throat pain, throat swelling, voice changes, others Respiratory: denies: cough, hemoptysis, orthopnea, SOB at rest, shortness of breath, SOB with excertion, stridor, wheezing, others Cardiovascular: denies: chest pain, dizzy spells, diaphoresis, Dyspnea on exertion, edema, irregular heart beat, left arm pain, lightheadedness, palpitations, PND, syncope, others Gastrointestinal: reports: abdomen distended, abdominal pain, nausea; denies: blood streaked bowels, constipated, diarrhea, dysphagia, difficulty swallowing, hematemesis, melena, poor appetite, poor fluid intake, rectal bleeding, rectal pain, vomiting, others Genitourinary: denies: abnormal vagina bleeding, burning, dyspareunia, dysuria, flank pain, frequency, hematuria, incontinence, pain, , vagina discharge, urgency, others Neurological: denies: dizziness, fainting, headache, left sided numbness, left sided weakness, numbness, paresthesia, pre-existing deficit, right sided numbness, right sided weakness, seizure, speech problems, tingling, tremors, weakness, others Musculoskeletal: denies: back pain, gout, joint pain, joint swelling, muscle pain, muscle stiffness, neck pain, others Integumetry: denies: bruises, change in color, change in hair/nails, dryness, laceration, lesions, lumps, rash, wounds, others Allergic/Immunocompromised: denies: Difficulty Healing, Frequent Infections, Hives, Itching, others Hematologic/Lymphatic: denies: anemia, blood clots, easy bleeding, easy bruising, swollen glands, others Endocrine: denies: excessive hunger, excessive sweating, excessive thirst, excessive urination, flushing, intolerance to cold, intolerance to heat, unexp lained weight gain, unexplained weight loss, others Psychiatric: denies: anxiety, bipolar disorder, depression, hopeless, panic disorder, schizophrenia, sleepless, suicidal, others All Other Systems: Reviewed and Negative Physical Exam General Appearance: Mild Distress, Obese HEENT: NOT DONE Neck: NOT DONE Respiratory: Chest Non-Tender, Lungs Clear, No Accessory Muscle Use, No Respiratory Distress, Normal Breath Sounds Cardiovascular: No Edema, No JVD, No Murmur, No Gallop, Normal Peripheral Pulses, Regular Rate/Rhythm Breast Exam: Deferred Gastrointestinal: Distended, Epigastric, Normal Bowel Sounds, Tenderness Genitalia: Deferred Pelvic: Deferred Rectal: Deferred Extremities: No calf tenderness, Normal capillary refill, Normal inspection, Normal range of motion, Non-tender, No pedal edema Neurologic: Alert, records management clerk II-XII nml as Tested, No Motor Deficits, Normal Affect, Normal Mood, No Sensory Deficits Cerebellar Function: Normal Reflexes: NOT DONE Skin: Dry, Normal Color, Warm Lymphatic: No Adenopathy EKG EKG : Pulse Rate (adult): 73 Novelty: Normal Cardiac Rhythm: Afib Block: None Hypertrophy: None ST: Normal Was a procedure done? Was a procedure done?: No GI differential Dx Differential Diagnosis: Appendicitis, Bowel Obstruction, Cholangitis, Cholecystitis, Constipation, Diverticular disease, Gastritis/PUD, Gastroenteritis, GI hemorrhage, Hernia, Hepatitis, Inflammatory BD, Ischemic Luis wel, Ovarian cyst/torsion, Pancreatitis, Urinary Obstruction, UTI, Urolithiasis, Dehydration, Electrolyte Imbalance, Food Poisoning, Bacterial, Parasitic, Viral, Impaction, Mass, Stress Ulcer, Kidney Stone X-Ray, Labs, Meds, VS Vital Signs Date Time Temp Pulse Resp B/P (MAP) Pulse Ox O2 Delivery O2 Flow Rate FiO2 10/25/24 10:05 98.5 77 16 124/73 (90) 97 98.5 10/25/24 08:10 Room Air* 0 21 10/25/24 07:52 125/76 10/25/24 07:28 91 20 110/76 (87) 98 10/25/24 07:28 91 20 98 Room Air 10/25/24 07:19 73 10/25/24 07:11 73 10/25/24 07:04 98.0 80 20 118/74 (89) 98 98.0 Lab Test 10/25/24 09:21 10/25/24 07:30 Range/Units Urine Color Yellow Yellow Urine Clarity Turbid H Clear Urine pH 7.0 5.0-9.0 Urine Specific [place] 1.017 1.001-1.035 Urine Protein 1+ H Negative Urine Ketones 2+ H Negative Urine Blood Negative Negative /uL Urine Nitrite Negative Negative Urine Bilirubin Negative Negative Urine Urobilinogen Normal Negative mg/dL Urine Leukocyte Esterase Negative Negative /uL Urine RBC 1 0 - 4 /hpf Urine Microscopic WBC 5 0-5 /HPF Urine Squamous Epithelial Cells Few <5 /hpf Urine Bacteria None seen None Seen /hpf Urine Mucus Few None Seen Urine Glucose Normal Normal mg/dL White Blood Count 7.8 4.4-10.8 10^3/uL Red Blood Count 5.91 H 4.0-5.20 10^6/uL Hemoglobin 18.6 H 12.2-16.2 g/dL Hematocrit 54.3 H 36.0-46.0 % Mean Corpuscular Volume 92.0 80.0-100.0 fL Mean Corpuscular Hemoglobin 31.5 28.0-32.0 pg Mean Corpuscular Hemoglobin Concent 34.3 32.0-36.0 g/dL Red Cell Distribution Width 13.4 11.8-14.3 % Platelet Count 259 140-450 10^3/uL Mean Platelet Volume 8.9 6.9-10.8 fL Neutrophils (%) (Auto) 79.5 37.0-80.0 % Lymphocytes (%) (Auto) 12.5 10.0-50.0 % Monocytes (%) (Auto) 6.4 0.0-12.0 % Eosinophils (%) (Auto) 0.8 0.0-7.0 % Basophils (%) (Auto) 0.8 0.0-2.0 % Neutrophils # (Auto) 6.2 1.6-8.6 10 ^3/uL Lymphocytes # (Auto) 1.0 0.4-5.4 10 ^3/uL Monocytes # (Auto) 0.5 0-1.3 10 ^3/uL Eosinophils # (Auto) 0.1 0-0.8 10 ^3/uL Basophils # (Auto) 0.1 0-0.2 10 ^3/uL Nucleated Red Blood Cells 0.6 % Sodium Level 139 136-145 mmol/L Potassium Level 3.8 3.5-5.1 mmol/L Chloride Level 104 98-107 mmol/L Carbon Dioxide Level 25 20-31 mmol/L Anion Gap 10 5-15 Blood Urea Nitrogen 10 9-23 mg/dL Creatinine 1.03 H 0.550-1.02 mg/dL Glomerular Filtration Rate Calc 59 >90 mL/min BUN/Creatinine Ratio 9.7 L 10.0-20.0 Serum Glucose 104 74-106 mg/dL Calcium Level 10.9 H 8.7-10.4 mg/dL Lipase 41 12-53 U/L Current Medications Medications (Trade) Dose Ordered Sig/Rosie Route Start Time Stop Time Status Last Admin Fentanyl Citrate 12.5 mcg ONCE ONCE IV 10/25/24 07:15 10/25/24 07:16 DC 10/25/24 07:52 Time of 1ST Reevaluation: 07:35 Reevaluation 1ST: Unchanged Time of 2ND Reevaluation: 11:05 Reevaluation 2ND: Improved Patient Education/Counseling: Diagnosis, Treatment, Prognosis, Need For Follow Up Family Education/Counseling: No Family Present Additional Information Previous visit documents reviewed: 10/15/2023 for GERD, 05/31/2024 for Vertigo The following tests were ordered, and results were reviewed by me: Additional Information was gathered from interviewing the following independent historians: EMS/Gym Instructor I reviewed and agreed with the following test results read by other providers: hospitalist I discussed treatment and results with medical personnel and: Patient pt reports that she has been working with [facility]'s GI, but has not been able to get in for the workup, since they have no availability. pt still reports having pain, but the workup is unrevealing. i will admit her here for gi consult Departure 1 Departure Time of Disposition: 11:06 Impression: Primary Impression: Abdominal pain Additional Impressions: Diverticulosis Cirrhosis Disposition: ADMITTED INPATIENT Admit to: Med Surg Condition: Stable Discharged With: Self Critical Care Note Critical Care Time?: Yes (55 min-critical care time only) Critical care comment: Due to concerns for patients condition deteriorating, the care required my highest level of attention and readiness to intervene. I assessed the patient, reviewed the medical records, ordered the appropriate tests and treatments, then reassessed for results and responsiveness. I communicated with medical personnel and consultants and formulated a plan of care. Total critical care time excludes any procedures Stability Stability form required: No Heart Score Heart Score: Heart Score Response (Comments) Value History N/A 0 EKG N/A 0 Age N/A 0 Risk Factors N/A 0 Troponin N/A 0 Total 0 I personally scribed for FENG DUPONT MD ([email or web address]) on 10/25/24 at 07:19. Electronically submitted by Checo Page ([email or web address]). FENG DUPONT MD Oct 25, 2024 07:19
[2024-10-25 07:42] LABS: Eosinophils # (auto) 0.1 10 ^3/uL (0-0.8); Eosinophils % (auto) 0.8 % (0.0-7.0); Monocytes # (auto) 0.5 10 ^3/uL (0-1.3); Neutrophils % (auto) 79.5 % (37.0-80.0); Red Cell Distribution Width 13.4 % (11.8-14.3)
[2024-10-25 07:44] LABS: Basophils # (auto) 0.1 10 ^3/uL (0-0.2); Basophils % (auto) 0.8 % (0.0-2.0); Hematocrit 54.3 % (36.0-46.0); Hemoglobin 18.6 g/dL (12.2-16.2); Lymphocytes % (auto) 12.5 % (10.0-50.0); Mean Corpuscular Hemoglobin 31.5 pg (28.0-32.0); Mean Corpuscular Hgb Conc. 34.3 g/dL (32.0-36.0); Monocytes % (auto) 6.4 % (0.0-12.0); Neutrophils # (auto) 6.2 10 ^3/uL (1.6-8.6); Nucleated Red Blood Cells % 0.6 %; Platelet Count (auto) 259 10^3/uL (140-450); Red Blood Cells 5.91 10^6/uL (4.0-5.20); White Blood Cell 7.8 10^3/uL (4.4-10.8)
[2024-10-25 07:47] LABS: Chloride 104 mmol/L (98-107); Potassium 3.8 mmol/L (3.5-5.1); Sodium 139 mmol/L (136-145)
[2024-10-25 07:48] LABS: Anion Gap 10 (5-15); Carbon Dioxide 25 mmol/L (20-31)
[2024-10-25] MEDS: fentaNYL CITRATE 100 MCG/2 ML VL IV ONE (07:52)
[2024-10-25 07:53] LABS: Glucose 104 mg/dL (74-106)
[2024-10-25 07:54] LABS: BUN/Creatinine Ratio 9.7 (10.0-20.0); Blood Urea Nitrogen 10 mg/dL (9-23)
[2024-10-25 07:59] LABS: Calcium 10.9 mg/dL (8.7-10.4)
[2024-10-25 08:45] LABS: Lipase 41 U/L (12-53)
--- NOTE | 2024-10-25 08:56 | DVH ---
CT CT AB PEL WO CON-NO ORAL OR IV INDICATION: pain EXAM DATE: 10/25/2024 08:07 AM COMPARISON: None RADIATION DOSE: CTDIvol: 27.51 mGy, DLP: 1347.76 mGy*cm PROCEDURE: Helical CT images were obtained of the abdomen and pelvis without IV contrast Sagittal and coronal reconstructions are provided. ORAL CONTRAST: None. ADDITIONAL IMAGES / REFORMATS: None All C T scans at this medical facility are performed using dose modulation techniques as appropriate to a p erformed exam including the following: Automated exposure control was utilized; adjustment of the MA and/or KV according to patient size; and use of iterative reconstruction technique. FINDINGS: LUNG BASE: Left lower lobe pneumatocele. LIVER: Cirrhotic in appearance. GALLBLADDER AND BILIARY TREE: No calcified gallstones. Normal caliber wall. No intra- or extrahepatic biliary ductal dilation. PANCREAS: Normal. SPLEEN: Normal. BOWEL: Moderate colonic diveritculosis. Normal appendix. ADRENALS: Normal. KIDNEYS AND URETER: Normal. BLADDER: Normal. REPRODUCTIVE ORGANS: Absent. LYMPH NODES:No lymphadenopathy. PERITONEUM: No ascites or free air. No other fluid collection. VESSELS: Scattered atherosclerotic calcifications are noted. RETROPERITONEUM: Normal. ABDOMINAL WALL: Normal. BONES: Scattered osseous degenerative changes are noted. IMPRESSION: No acute intraabdominal abnormality. Moderate colonic diverticulosis. Cirrhosis.
[2024-10-25 09:28] LABS: Urine Bacteria None Seen /hpf (None Seen)
[2024-10-25 09:52] LABS: Urine Blood Negative /uL (Negative); Urine Clarity Turbid (Clear); Urine Color Yellow (Yellow); Urine Mucus FEW (None Seen); Urine Protein, UAD 1+ (Negative); Urine Specific Gravity 1.017 (1.001-1.035); Urine Squamous Epithelial Cell FEW /hpf (<5); Urine Urobilinogen Normal (Negative); Urine WBC 5 /HPF (0-5)
[2024-10-25] MEDS ORDERED: HYDROcodone-ACET 5/325MG TAB PO PRN (12:45)
--- NOTE | 2024-10-25 12:54 | DVHHP2 ---
History of Present Illness Reason for Visit: ABDOMINAL PAIN History of Present Illness This 69-year-old female with past medical history of hypertension, AFib, hyperlipidemia, GERD, breast cancer, presents in the ED with a chief complaint of abdominal pain. The patient states progressive epigastric pain radiating to left lower quadrant and is associated with nausea and constipation has been going on for a while. Patient states that she is scheduled for endoscopy and colonoscopy with her GI in [facility]. Denies fever, chest pain, shortness of breath, vomiting, hematemesis, or melena. Past Medical History As stated in HPI Past Surgical History Right breast lumpectomy Family History Reviewed, non-contributory to the management of this case. Past Social History The patient lives at home, denies smoking, alcohol or illicit drugs abuse. Review of Systems Constitutional: Yes: Malaise; No: Fever, Chills, Sweats, Weakness, Other Eyes: No: Pain, Vision change, Conjunctivae inflammation, Eyelid inflammation, Other, Redness ENT: No: Ear pain, Ear discharge, Nose pain, Nose discharge, Nose congestion, Mouth pain, Mouth swelling, Throat pain, Throat swelling, Other Respiratory: No: Cough, Dry, Shortness of breath, SOB with excertion, Wheezing, Hemoptysis, Pleuritic Pain, Sputum, Wheezing, Other Cardiovascular: No: Chest Pain, Palpitations, Orthopnea, Paroxysmal Noc. Dyspnea, Edema, Lt Headedness, Other Gastrointestinal: Nausea, Abdominal Pain, Constipation; No: Vomiting, Diarrhea, Melena, Hematochezia, Other Genitourinary: No Dysuria, No Frequency, No Incontinence, No Hematuria, No Retention, No Other Musculoskeletal: No: other, neck pain, shoulder pain, arm pain, back pain, hand pain, leg pain, foot pain Skin: No: Rash, Lesions, Jaundice, Bruising, Other Neurological: No: Weakness, Numbness, Incoordination, Change in speech, Confusion, Seizures, Other Allergies: Coded Allergies: Morphine (Verified Allergy, Unknown, 05/02/19) Exam Vital Signs Vital Signs Date Time Temp Pulse Resp B/P (MAP) Pulse Ox O2 Delivery O2 Flow Rate FiO2 10/25/24 12:00 98.1 72 13 118/49 (72) 98 98.1 10/25/24 08:10 Room Air* 0 21 General Appearance: Alert, Oriented X3, Cooperative, Other (Obese) HEENT: Atraumatic, PERRLA, EOMI, Mucous membr. moist/pink Respiratory: Clear to auscultation Cardiovascular: Regular rate, Normal S1, Normal S2 Abdominal: Normal bowel sounds, Soft, Other (Epigastric tenderness) Extremities: No clubbing, No cyanosis, No edema, Normal pulses Skin: No rashes, No breakdown, No significant lesion Neuro: Normal tone Psych/Mental Status: Mental status NL Labs/Xrays Labs Test 10/25/24 09:21 10/25/24 07:30 Range/Units Urine Color Yellow Yellow Urine Clarity Turbid H Clear Urine pH 7.0 5.0-9.0 Urine Specific [place] 1.017 1.001-1.035 Urine Protein 1+ H Negative Urine Ketones 2+ H Negative Urine Blood Negative Negative /uL Urine Nitrite Negative Negative Urine Bilirubin Negative Negative Urine Urobilinogen Normal Negative mg/dL Urine Leukocyte Esterase Negative Negative /uL Urine RBC 1 0 - 4 /hpf Urine Microscopic WBC 5 0-5 /HPF Urine Squamous Epithelial Cells Few <5 /hpf Urine Bacteria None seen None Seen /hpf Urine Mucus Few None Seen Urine Glucose Normal Normal mg/dL White Blood Count 7.8 4.4-10.8 10^3/uL Red Blood Count 5.91 H 4.0-5.20 10^6/uL Hemoglobin 18.6 H 12.2-16.2 g/dL Hematocrit 54.3 H 36.0-46.0 % Mean Corpuscular Volume 92.0 80.0-100.0 fL Mean Corpuscular Hemoglobin 31.5 28.0-32.0 pg Mean Corpuscular Hemoglobin Concent 34.3 32.0-36.0 g/dL Red Cell Distribution Width 13.4 11.8-14.3 % Platelet Count 259 140-450 10^3/uL Mean Platelet Volume 8.9 6.9-10.8 fL Neutrophils (%) (Auto) 79.5 37.0-80.0 % Lymphocytes (%) (Auto) 12.5 10.0-50.0 % Monocytes (%) (Auto) 6.4 0.0-12.0 % Eosinophils (%) (Auto) 0.8 0.0-7.0 % Basophils (%) (Auto) 0.8 0.0-2.0 % Neutrophils # (Auto) 6.2 1.6-8.6 10 ^3/uL Lymphocytes # (Auto) 1.0 0.4-5.4 10 ^3/uL Monocytes # (Auto) 0.5 0-1.3 10 ^3/uL Eosinophils # (Auto) 0.1 0-0.8 10 ^3/uL Basophils # (Auto) 0.1 0-0.2 10 ^3/uL Nucleated Red Blood Cells 0.6 % Sodium Level 139 136-145 mmol/L Potassium Level 3.8 3.5-5.1 mmol/L Chloride Level 104 98-107 mmol/L Carbon Dioxide Level 25 20-31 mmol/L Anion Gap 10 5-15 Blood Urea Nitrogen 10 9-23 mg/dL Creatinine 1.03 H 0.550-1.02 mg/dL Glomerular Filtration Rate Calc 59 >90 mL/min BUN/Creatinine Ratio 9.7 L 10.0-20.0 Serum Glucose 104 74-106 mg/dL Calcium Level 10.9 H 8.7-10.4 mg/dL Lipase 41 12-53 U/L PROCEDURE(s): ABPL - CT AB PEL WO CON-NO ORAL OR IV REASON: pain ORDER NUMBER(s): [id number], ACCESSION NUMBER(s): [id number] CT CT AB PEL WO CON-NO ORAL OR IV INDICATION: pain EXAM DATE: 10/25/2024 08:07 AM COMPARISON: None RADIATION DOSE: CTDIvol: 27.51 mGy, DLP: 1347.76 mGy*cm PROCEDURE: Helical CT images were obtained of the abdomen and pelvis without IV contrast Sagittal and coronal reconstructions are provided. ORAL CONTRAST: None. ADDITIONAL IMAGES / REFORMATS: None All CT scans at this medical facility are performed using dose modulation techniques as appropriate to a performed exam including the following: Automated exposure control was utilized; adjustment of the MA and/or KV according to patient size; and use of iterative reconstruction technique. FINDINGS: LUNG BASE: Left lower lobe pneumatocele. LIVER: Cirrhotic in appearance. GALLBLADDER AND BILIARY TREE: No calcified gallstones. Normal caliber wall. No intra- or extrahepatic biliary ductal dilation. PANCREAS: Normal. SPLEEN: Normal. BOWEL: Moderate colonic diveritculosis. Normal appendix. ADRENALS: Normal. KIDNEYS AND URETER: Normal. BLADDER: Normal. REPRODUCTIVE ORGANS: Absent. LYMPH NODES:No lymphadenopathy. PERITONEUM: No ascites or free air. No other fluid collection. VESSELS: Scattered atherosclerotic calcifications are noted. RETROPERITONEUM: Normal. ABDOMINAL WALL: Normal. BONES: Scattered osseous degenerative changes are noted. IMPRESSION: No acute intraabdominal abnormality. Moderate colonic diverticulosis. Cirrhosis. Assessment/Plan Assessment/Plan # Acute abdominal pain # GERD # cirrhosis Admit to medical unit GI consult Clear liquid diet Antiemetics PPI # hypertension home med list obtained Hydralazine as needed # chronic AFib Continue diltiazem Lovenox - resume warfarin on discharge # anxiety depression Continue fluoxetine # morbid obesity Lifestyle modification counseled # hyperlipidemia Statins Lipid panel # hx right breast carcinoma s/p lumpectomy DVT prophylaxis Medical plan discussed with patient Plan discussed with: Patient My Orders Orders - GUILLE DANIEL Procedure Category Date Status Time Admit ADMIT 10/25/24 Verified 12:37 Code Status CODE 10/25/24 Verified 12:37 Hydrocodone-Acet PHA 10/25/24 Verified 5/325mg Tab ([place] 12:45 Ondansetron Hcl PHA 10/25/24 Verified (Zofran) 12:45 Enoxaparin Sodium PHA 10/26/24 Verified (Lovenox) 10:00 Fall Risk Precautions GEN 10/25/[address] 12:37 Complete Blood Count LAB 10/26/24 Verified 04:00 Comprehensive LAB 10/26/24 Verified Metabolic Panel 04:00 Condition: Fair GEN 10/25/24 Verified 12:37 Acetaminophen Tablet PHA 10/25/24 Verified (Tylenol Tablet) 12:45 Clear Liq Diet DIET 10/25/24 Verified Lunch * [facility] [employer] Project Coordinator CONS 10/25/24 Verified 12:37 Pantoprazole PHA 10/26/24 Verified (Protonix) 10:00 Pantoprazole PHA 10/25/24 Verified (Protonix) 12:45 Date of Service: Oct 25, 2024 Billing Provider: GUILLE DANIEL Common Visit Codes: [id number] INP/OBS CARE (HIGH) GUILLE DANIEL Oct 25, 2024 12:54
[2024-10-25] MEDS ORDERED: ACETAMINOPHEN 325 MG TAB PO PRN (14:00)
[2024-10-25 14:16] VITALS: BP 116/71; PULSE 66; PULSE 81; RESP 18; RESP 20; TEMP 98.7; O2SAT 94; O2SAT 97
[2024-10-25] MEDS: PANTOPRAZOLE 40 MG/10 ML VIAL INJ IV ONE (14:30)
[2024-10-25] MEDS: ONDANSETRON HCL 4 MG/2 ML VIAL IV PRN (14:34)
--- NOTE | 2024-10-25 15:07 | DVHINCON2 ---
Date of service: Oct 25, [address] Calixto Reason for Consultation Abdominal pain nausea History of Present Illness This 69-year-old female with a history of hypertension atrial fibrillation hyperlipidemia patient is on warfarin for atrial fibrillation GERD breast cancer presented to the emergency room with complaints of abdominal pain in the left upper quadrant and epigastrium Pain was more in the epigastric area radiating slightly to the left upper quadrant and minimally also the left lower quadrant. Had complaints of constipation and some nausea Past Medical History Hyperlipidemia atrial fibrillation hypertension GERD history of breast cancer Past Surgical History Lumpectomy Family History: Cerebrovascular accident (CVA) G8 MOTHER Family History Noncontributory Social History Denies smoking or drinking Allergies: Coded Allergies: Morphine (Verified Allergy, Unknown, 05/02/19) Home Meds Active Scripts Prednisone (Prednisone) 20 Mg Tab, 60 MG PO DAILY, #21 MG Prov:MADI MILLER 07/02/24 Tobramycin Sulfate (Tobrex) [address], 2 DROP OP QID, #5 ML Prov:MADI MILLER 07/02/24 Amoxicillin & Pot Clavulanate (AUGMENTIN TABLET) 875 Mg Tb, 875 MG PO BID for 10 Days, #20 TAB Prov:MADI MILLER 07/02/24 Trazodone Hcl (Trazodone Hcl) 100 Mg Tab, 1 TAB PO QPM PRN, #30 TAB 0 Refills Prov:RUDDY MURRAY MD 06/02/24 Meclizine HCl (Meclizine 25) 25 Mg Tab, 25 MG PO QPM for 14 Days, #14 TAB Prov:RUDDY MURRAY MD 06/02/24 Losartan Potassium (Losartan Potassium) 25 Mg Tab, 12.5 MG PO QPM for 30 Days, #15 TAB 1 Refill Prov:RUDDY MURRAY MD 06/02/24 Omeprazole Magnesium (Omeprazole) 20 Mg Tab, 20 MG PO DAILY, #30 TAB Prov:THA SANDS 10/15/23 Albuterol Sulfate (Albuterol Sulfate Hfa) 108 Mcg/Act Aer, 108 MCG IN TID, #1 AER Prov:THA SANDS 10/15/23 Reported Medications Warfarin Sodium (Warfarin Sodium) 5 Mg Tab, 2 TAB PO QPM, MG 2 TABLETS (10 MG TOTAL) BY MOUTH AT NIGHT FOR CHRONIC ATRIAL FIBRILLATION 06/01/24 Pravastatin Sodium (PRAVACHOL TABLET) 20 Mg Tb, 10 MG PO DAILY, TAB 06/01/24 Diltiazem Hcl (Dilt-Xr) 180 Mg Cap, 180 MG PO BID, CAP 06/01/24 Fluoxetine HCl (Pmdd) (Fluoxetine HCl) 10 Mg Tab, 30 MG PO DAILY, TAB 06/01/24 Current Medications Current Medications Medications (Trade) Dose Ordered Sig/Rosie Route PRN Reason Start Time Stop Time Status Last Admin Acetaminophen/ Hydrocodone Bitart ([place] 5/325MG Tab) 1 tab Q4HP PRN PO MODERATE PAIN (4-6 PAIN SCALE) 10/25/24 12:45 10/25/24 13:29 DC Ondansetron HCl (Zofran) 4 mg Q4HP PRN IV NAUSEA / VOMITING 10/25/24 12:45 10/25/24 14:34 Enoxaparin Sodium (Lovenox) 40 mg DAILY SC 10/26/24 10:00 Acetaminophen (Tylenol Tablet) 650 mg Q6HP PRN PO PAIN SCALE 1-3 OR TEMP>100.4 10/25/24 12:45 Pantoprazole Sodium (Protonix) 40 mg DAILY IV 10/26/24 10:00 Diltiazem HCl (Cardizem LA Capsule) 180 mg BID PO 10/25/24 22:00 Pravastatin Sodium (Pravachol Tablet) 10 mg DAILY PO 10/26/24 10:00 Patient Own Medication 30 DAILY PO 10/26/24 10:00 Acetaminophen (Tylenol Tablet) 650 mg Q6HP PRN PO MILD PAIN (1-3 PAIN SCALE) 10/25/24 14:00 10/25/24 14:39 DC Review of Systems Noncontributory Vital Signs Vital Signs Date Time Temp Pulse Resp B/P (MAP) Pulse Ox O2 Delivery O2 Flow Rate FiO2 10/25/24 12:00 98.1 72 13 118/49 (72) 98 98.1 10/25/24 08:10 Room Air* 0 21 Physical Exam Moderately built and nourished female slightly on the obese side in no acute distress HEENT examination no pyloric Lungs clear vascular unremarkable When soft mild tenderness in the epigastrium and left upper quadrant no rigidity no guarding no masses Bowel sounds normal Extremities no edema no clubbing Neurological no focal deficit Labs/Diagnostic Data Labs Test 10/25/24 09:21 10/25/24 07:30 Range/Units Urine Color Yellow Yellow Urine Clarity Turbid H Clear Urine pH 7.0 5.0-9.0 Urine Specific [place] 1.017 1.001-1.035 Urine Protein 1+ H Negative Urine Ketones 2+ H Negative Urine Blood Negative Negative /uL Urine Nitrite Negative Negative Urine Bilirubin Negative Negative Urine Urobilinogen Normal Negative mg/dL Urine Leukocyte Esterase Negative Negative /uL Urine RBC 1 0 - 4 /hpf Urine Microscopic WBC 5 0-5 /HPF Urine Squamous Epithelial Cells Few <5 /hpf Urine Bacteria None seen None Seen /hpf Urine Mucus Few None Seen Urine Glucose Normal Normal mg/dL White Blood Count 7.8 4.4-10.8 10^3/uL Red Blood Count 5.91 H 4.0-5.20 10^6/uL Hemoglobin 18.6 H 12.2-16.2 g/dL Hematocrit 54.3 H 36.0-46.0 % Mean Corpuscular Volume 92.0 80.0-100.0 fL Mean Corpuscular Hemoglobin 31.5 28.0-32.0 pg Mean Corpuscular Hemoglobin Concent 34.3 32.0-36.0 g/dL Red Cell Distribution Width 13.4 11.8-14.3 % Platelet Count 259 140-450 10^3/uL Mean Platelet Volume 8.9 6.9-10.8 fL Neutrophils (%) (Auto) 79.5 37.0-80.0 % Lymphocytes (%) (Auto) 12.5 10.0-50.0 % Monocytes (%) (Auto) 6.4 0.0-12.0 % Eosinophils (%) (Auto) 0.8 0.0-7.0 % Basophils (%) (Auto) 0.8 0.0-2.0 % Neutrophils # (Auto) 6.2 1.6-8.6 10 ^3/uL Lymphocytes # (Auto) 1.0 0.4-5.4 10 ^3/uL Monocytes # (Auto) 0.5 0-1.3 10 ^3/uL Eosinophils # (Auto) 0.1 0-0.8 10 ^3/uL Basophils # (Auto) 0.1 0-0.2 10 ^3/uL Nucleated Red Blood Cells 0.6 % Sodium Level 139 136-145 mmol/L Potassium Level 3.8 3.5-5.1 mmol/L Chloride Level 104 98-107 mmol/L Carbon Dioxide Level 25 20-31 mmol/L Anion Gap 10 5-15 Blood Urea Nitrogen 10 9-23 mg/dL Creatinine 1.03 H 0.550-1.02 mg/dL Glomerular Filtration Rate Calc 59 >90 mL/min BUN/Creatinine Ratio 9.7 L 10.0-20.0 Serum Glucose 104 74-106 mg/dL Calcium Level 10.9 H 8.7-10.4 mg/dL Lipase 41 12-53 U/L Assessment 69-year-old female with a history of hypertension hyperlipidemia GERD atrial fibrillation breast cancer presenting with complaints of abdominal pain radiates with a left upper quadrant her labs are unremarkable patient apparently had a colonoscopy one year ago here which was normal patient is getting in workup done in [facility] was scheduled to have an EGD colonoscopy in the next few months with the GI and [facility] if at apparently he had been having booked up. No hematemesis or melena These on warfarin for atrial fib Clinical impression possible GERD possible ulcer disease or gastritis Diverticulosis on the CT scan no other abnormality seen Plan/Recommendation We will recommend to treat with PPIs May need EGD were EGD evaluation If patient feels better could arrange for the EGD and colon At [facility] where she has an appointment CT scan just showed diverticula the patient had a normal colonoscopy apparently one year ago Plan discussed with: Patient CRISTÓBAL QUINTERO MD Oct 25, 2024 15:07
[2024-10-25] MEDS: ALPRAZolam 0.5 MG TAB PO ONE (15:34)
[2024-10-25 17:00] VITALS: BP 138/70; PULSE 66; RESP 18; TEMP 97.8; O2SAT 94
[2024-10-25 21:00] VITALS: BP 108/56; PULSE 65; RESP 18; TEMP 98; O2SAT 95
[2024-10-25] MEDS: MELATONIN 5 MG TAB PO ONE (23:34)
[2024-10-25] MEDS: dilTIAZem HCL 180MG ER CAP PO SCH (23:40)
[2024-10-26] VITALS (8 sets, daily range): BP systolic 128–152; BP diastolic 62–94; PULSE 62–100; RESP 17–18; TEMP 97.2–98.2; O2SAT 91–98
[2024-10-26 06:43] LABS: Alanine Aminotransferase 29 U/L (7-40); Alkaline Phosphatase 67 U/L (46-116); Anion Gap 8 (5-15); Aspartate Aminotransferase 19 U/L (13-40); BUN/Creatinine Ratio 11.5 (10.0-20.0); Blood Urea Nitrogen 11 mg/dL (9-23); Carbon Dioxide 25 mmol/L (20-31); Chloride 107 mmol/L (98-107); Glucose 105 mg/dL (74-106); Potassium 3.8 mmol/L (3.5-5.1); Sodium 140 mmol/L (136-145)
[2024-10-26 06:45] LABS: Albumin 4.4 g/dL (3.2-4.8)
[2024-10-26 06:46] LABS: Bilirubin, Total 1.3 mg/dL (0.2-1.0); Calcium 10.5 mg/dL (8.7-10.4)
[2024-10-26 07:02] LABS: Basophils # (auto) 0 10 ^3/uL (0-0.2); Basophils % (auto) 0.5 % (0.0-2.0); Eosinophils # (auto) 0.1 10 ^3/uL (0-0.8); Eosinophils % (auto) 1.8 % (0.0-7.0); Hematocrit 52.4 % (36.0-46.0); Hemoglobin 17.5 g/dL (12.2-16.2); Lymphocytes % (auto) 15.8 % (10.0-50.0); Mean Corpuscular Hemoglobin 31.2 pg (28.0-32.0); Mean Corpuscular Hgb Conc. 33.4 g/dL (32.0-36.0); Mean Corpuscular Volume 93.6 fL (80.0-100.0); Monocytes # (auto) 0.5 10 ^3/uL (0-1.3); Monocytes % (auto) 8.4 % (0.0-12.0); Neutrophils # (auto) 4.8 10 ^3/uL (1.6-8.6); Neutrophils % (auto) 73.5 % (37.0-80.0); Nucleated Red Blood Cells % 0.3 %; Platelet Count (auto) 243 10^3/uL (140-450); Red Cell Distribution Width 13.9 % (11.8-14.3); White Blood Cell 6.5 10^3/uL (4.4-10.8)
[2024-10-26] MEDS: PRAVASTATIN SODIUM 20 MG TAB PO SCH (09:05)
[2024-10-26] MEDS: ENOXAPARIN SOD 40 MG/0.4 ML SYRINGE SC SCH (09:06)
[2024-10-26] MEDS: FLUOXETINE HCL 10 MG PO SCH (09:06)
[2024-10-26] MEDS: PANTOPRAZOLE 40 MG/10 ML VIAL INJ IV SCH (09:08)
[2024-10-26] MEDS: ACETAMINOPHEN 325 MG TAB PO PRN (09:25)
--- NOTE | 2024-10-26 10:11 | DVHPN2 ---
Progress Note Date Seen: Oct 26, 2024 Resident Creating Document: ASHOK EASLEY RESIDENT Medical Necessity Reason Pt with a Central, PICC or Fol: No The following are medically ne: Thompson Catheter Subjective Review of Systems Patient seen and examined at bedside Reports improvement in midepigastric pain, however still persistent Last bowel movement was day before yesterday Per patient, she does not remember when she had her last EGD, last colonoscopy was last year Objective vital signs Vital Sign Date Time Temp Pulse Resp B/P (MAP) Pulse Ox O2 Delivery O2 Flow Rate FiO2 10/26/24 09:06 98.0 100 18 152/93 (112) 97 98.0 10/26/24 08:00 Room Air* 0 21 Total Intake and Output 10/25/24 10/25/24 10/26/24 15:00 23:00 07:00 Intake Total 0 ml 746 ml Balance 0 ml 746 ml medications Current Medications Medications Dose Ordered Sig/Rosie Route Start Time Stop Time Status Last Admin Dose Admin Ondansetron HCl 4 mg Q4HP PRN IV 10/25/24 12:45 10/26/24 09:04 4 MG Enoxaparin Sodium 40 mg DAILY SC 10/26/24 10:00 10/26/24 09:06 40 MG Acetaminophen 650 mg Q6HP PRN PO 10/25/24 12:45 10/26/24 09:25 650 MG Pantoprazole Sodium 40 mg DAILY IV 10/26/24 10:00 10/26/24 09:08 40 MG Diltiazem HCl 180 mg BID PO 10/25/24 22:00 10/26/24 09:05 180 MG Pravastatin Sodium 10 mg DAILY PO 10/26/24 10:00 10/26/24 09:05 10 MG Patient Own Medication 30 DAILY PO 10/26/24 10:00 Examination General Appearance: Alert, Oriented X3, Cooperative, HEENT: Atraumatic, PERRLA, EOMI, Mucous membr. moist/pink Respiratory: Clear to auscultation Cardiovascular: Regular rate, Normal S1, Normal S2 Abdominal: Normal bowel sounds, Soft, Other (Epigastric tenderness) Extremities: No clubbing, No cyanosis, No edema, Normal pulses Skin: No rashes, No breakdown, No significant lesion Neuro: Normal tone,sensation Psych/Mental Status: Mental status NL Nurse was there as a system technologist during examination laboratory and microbiology Laboratory Tests 3/17/25 05:58 Test 10/26/24 05:58 Range/Units Serum Glucose 105 74-106 mg/dL Labs and/or images reviewed: Labs reviewed by me, Image(s) reviewed by me Problem List/Assessment/Plan Problem List/Assessment/Plan GERD possible ulcer disease or gastritis Hx of Breast cancers/p lumpectomy and brachytherapy atrial fibrillation Cirrhosis on CT diverticulosis without diverticulitis Plan: scheduled for EGD tomorrow; we will re-evaluate in the morning based on INR levels Held warfarin in preparation of EGD tomorrow ordered hepatitis panel liver usg continue PPIs Hold lovenox Plan discussed with Dr. Saba Plan discussed with: Patient, Other (RN) ASHOK EASLEY RESIDENT Oct 26, 2024 10:11
[2024-10-26 10:40] LABS: INR 3.21 (0.9-1.15); Partial Thromboplastin Time 46.3 SEC (24.5-34.5); Prothrombin Time 30.3 sec (9.3-11.8)
[2024-10-26 10:58] LABS: Cholesterol 151 mg/dL (< 200); Triglycerides 132 mg/dL (< 150)
[2024-10-26 10:59] LABS: LDL Cholesterol 70 mg/dL (< 100)
[2024-10-26 11:00] LABS: HDL Cholesterol 58 mg/dL (40-59)
[2024-10-26 11:06] LABS: Blood Alcohol < 3.0 mg/dL (<10)
[2024-10-26 11:09] LABS: Hepatitis B Core Total AB Negative (Negative)
[2024-10-26 11:42] LABS: Hepatitis A Total Antibody Positive (Negative); Hepatitis B Surface Antibody Positive (Negative); Hepatitis B Surface Antigen Negative (Negative); Hepatitis C Antibody Negative (Negative)
--- NOTE | 2024-10-26 11:56 | DVHPNRES ---
Progress Note Date Seen: Oct 26, 2024 Resident Creating Document: DOROTHEA TRIVEDI RESIDENT Medical Necessity Reason Pt with a Central, PICC or Fol: No Subjective Review of Systems CEDDANIELLE CHANEL is a 69 y o female with PMH of HTN, AFib, hyperlipidemia, GERD, breast cancer, presents in the ED with a chief complaint worsening of abdominal pain, intractable nausea and vomiting. Patient states progressive epigastric pain radiating to left lower quadrant and is associated with nausea and constipation has been going on for 4 weeks and she went to [facility] and she is scheduled for endoscopy and colonoscopy with her GI in January but patient started have worsening of abdominal pain with intractable nausea and vomiting which brought her to visit ED. Denies fever, chest pain, shortness of breath, vomiting, hematemesis, or melena. PMH: HTN, AFib, hyperlipidemia, GERD, breast cancer, PSH: Right breast lumpectomy FMH: Reviewed, non-contributory to the management of this case. Social HX: Patient lives at home, denies smoking, alcohol or illicit drugs abuse Allergies: No known allergies Patient seen and examined at the bedside. Patient reported still have abdominal pain, nausea & vomiting and unable to tolerate p.o., started IV Protonix, IV Zofran. Overnight events reviewed. GI toy consultant evaluated the patient and advised EGD tomorrow. Objective vital signs Vital Sign Date Time Temp Pulse Resp B/P (MAP) Pulse Ox O2 Delivery O2 Flow Rate FiO2 10/26/24 09:06 98.0 100 18 152/93 (112) 97 98.0 10/26/24 08:00 Room Air* 0 21 Total Intake and Output 10/25/24 10/25/24 10/26/24 15:00 23:00 07:00 Intake Total 0 ml 746 ml Balance 0 ml 746 ml medications Current Medications Medications Dose Ordered Sig/Rosie Route Start Time Stop Time Status Last Admin Dose Admin Ondansetron HCl 4 mg Q4HP PRN IV 10/25/24 12:45 10/26/24 09:04 4 MG Acetaminophen 650 mg Q6HP PRN PO 10/25/24 12:45 10/26/24 09:25 650 MG Pantoprazole Sodium 40 mg DAILY IV 10/26/24 10:00 10/26/24 09:08 40 MG Diltiazem HCl 180 mg BID PO 10/25/24 22:00 10/26/24 09:05 180 MG Pravastatin Sodium 10 mg DAILY PO 10/26/24 10:00 10/26/24 09:05 10 MG Patient Own Medication 30 DAILY PO 10/26/24 10:00 Sucralfate 1 gm BID@0600,2200 GT 10/26/24 10:15 Examination General Appearance: Alert, Oriented X3, Cooperative, HEENT: Atraumatic, PERRLA, EOMI, Mucous membr. moist/pink Respiratory: Clear to auscultation Cardiovascular: Regular rate, Normal S1, Normal S2 Abdominal: Normal bowel sounds, Soft, Other (Epigastric tenderness) Extremities: No clubbing, No cyanosis, No edema, Normal pulses Skin: No rashes, No breakdown, No significant lesion Neuro: Normal tone,sensation Psych/Mental Status: Mental status NL Nurse was there as a photographic lithographer during examination laboratory and microbiology Laboratory Tests 10/26/24 05:58 Test 10/26/24 05:58 Range/Units Serum Glucose 105 74-106 mg/dL Labs and/or images reviewed: Labs reviewed by me, Image(s) reviewed by me Problem List/Assessment/Plan Problem List/Assessment/Plan # Acute abdominal pain ? PUD/ gastritis # GERD # Cirrhosis MASH/CARRANZA - Admit to medical unit - GI consult, EGD tommorrow - Clear liquid diet, NPO after midnight - Antiemetics - PPI and carafate - CT abd/pel showed No acute intraabdominal abnormality. Moderate colonic diverticulosis. Cirrhosis. # Hypertension - home med list obtained - Hydralazine as needed # Chronic AFib - Continue diltiazem - Hold Therapeutic Lovenox for procedure - resume warfarin on discharge # Anxiety depression without suicidal or homicidal ideations - Continue fluoxetine # Morbid obesity with a BMI 39.3 - Lifestyle modification counseled # hyperlipidemia - Statins - Lipid panel Protonox Hold Therapeutic Lovenox for procedure NPO after midnight Goals of care discussed with the patient for more than 27 minutes: Full code status Case discussed with Dr. Rose, patient and nurse Plan discussed with: Patient My Orders My Orders Orders - DOROTHEA TRIVEDI RESIDENT Procedure Category Date Status Time Sucralfate Susp PHA 10/26/24 In Process (Carafate Susp) 10:15 Npo After Midnight ORDERS 10/26/24 Transmitted Drug Screen LAB 10/26/24 Logged 10:11 DOROTHEA TRIVEDI RESIDENT Oct 26, 2024 11:56
--- NOTE | 2024-10-26 13:13 | DVH ---
INDICATION: evaluate GB TECHNIQUE: Multiple real-time sonographic images of the right upper abdomen were obtained. COMPARISON: None FINDINGS: The liver is increased in echogenicity. The liver measures 18 cm. No intrahepatic biliary ductal dilatation is noted. The gallbladder wall measures 0.2 cm and is unremarkable. Gallstones. The common duct measures 0.7 cm and is unremarkable. No pericholecystic fluid is noted. The right kidney measures 12.0 cm. No hydronephrosis. The pancreas is not well visualized due to obscuration from bowel gas. IMPRESSION: Hepatic steatosis and hepatomegaly. Cholelithiasis without sonographic evidence of acute cholecystitis.
--- NOTE | 2024-10-26 14:41 | ECG ---
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
[2024-10-26] MEDS: SUCRALFATE 1 GM/10 ML ORAL SUSP GT SCH (15:23)
[2024-10-26] MEDS: ENOXAPARIN SOD 100 MG/1 ML SYRINGE SC ONE (15:26)
[2024-10-27 01:00] VITALS: BP 145/82; PULSE 90; RESP 18; TEMP 97.9; O2SAT 95
[2024-10-27 05:00] VITALS: BP 131/71; PULSE 80; RESP 20; TEMP 97.8; O2SAT 94
[2024-10-27 06:01] LABS: Basophils # (auto) 0.1 10 ^3/uL (0-0.2); Basophils % (auto) 1.1 % (0.0-2.0); Eosinophils # (auto) 0.1 10 ^3/uL (0-0.8); Hematocrit 51.5 % (36.0-46.0); Hemoglobin 18.1 g/dL (12.2-16.2); Lymphocytes # (auto) 1.2 10 ^3/uL (0.4-5.4); Lymphocytes % (auto) 21.1 % (10.0-50.0); Mean Corpuscular Hemoglobin 32.5 pg (28.0-32.0); Mean Corpuscular Hgb Conc. 35.2 g/dL (32.0-36.0); Mean Corpuscular Volume 92.3 fL (80.0-100.0); Monocytes # (auto) 0.5 10 ^3/uL (0-1.3); Monocytes % (auto) 8.4 % (0.0-12.0); Neutrophils # (auto) 3.9 10 ^3/uL (1.6-8.6); Neutrophils % (auto) 67.4 % (37.0-80.0); Nucleated Red Blood Cells % 0.3 %; Platelet Count (auto) 237 10^3/uL (140-450); Red Blood Cells 5.58 10^6/uL (4.0-5.20); Red Cell Distribution Width 13.6 % (11.8-14.3); White Blood Cell 5.8 10^3/uL (4.4-10.8)
[2024-10-27 06:17] LABS: INR 2.88 (0.9-1.15); Partial Thromboplastin Time 47.1 SEC (24.5-34.5); Prothrombin Time 27.5 sec (9.3-11.8)
--- NOTE | 2024-10-27 06:58 | DVH ---
EXAM: XR Chest, 1 View CLINICAL INDICATION: PRE OP EGD TECHNIQUE: Frontal view of the chest. COMPARISON: CHEST PORTABLE on DOS: 07/21/22, CXRP on DOS: 07/21/22 FINDINGS: LUNGS AND PLEURAL SPACES: Unremarkable. No consolidation. No pneumothorax. HEART: Unremarkable. No cardiomegaly. MEDIASTINUM: Unremarkable. Normal mediastinal contour. BONES/JOINTS: Unremarkable. No acute fracture. OTHER FINDINGS: . None. IMPRESSION: No acute cardiopulmonary process.
[2024-10-27 08:30] VITALS: BP 133/66; PULSE 66; RESP 16; TEMP 97.6; O2SAT 97
[2024-10-27] MEDS ORDERED: NALOXONE HCL 0.4 MG/ML VIAL ONE (08:31)
[2024-10-27] MEDS ORDERED: MIDAZOLAM HCL 5 MG/ML-1ML VIAL ONE (08:31)
[2024-10-27] MEDS ORDERED: LIDOCAINE VISCOUS 2% 15ML UD ONE (08:31)
[2024-10-27] MEDS ORDERED: FLUMAZENIL 0.1 MG/ML INJ 10ML MDV IV ONE (08:31)
[2024-10-27] MEDS ORDERED: SODIUM CHLORIDE LOCK 0 ML ONE (08:31)
[2024-10-27] MEDS ORDERED: diphenhdrAMINE HCL 50 MG/1 ML VL ONE (08:32)
[2024-10-27] MEDS ORDERED: fentaNYL CITRATE 100 MCG/2 ML VL ONE (08:33)
[2024-10-27] MEDS ORDERED: SIMETHICONE 40 MG/0.6 ML ORAL DROP ONE (08:50)
[2024-10-27] MEDS: LORazepam 2MG/ML-1ML VIAL IV ONE (10:00)
[2024-10-27 12:30] VITALS: BP 125/55; PULSE 89; RESP 14; TEMP 98.4; O2SAT 94
[2024-10-27] MEDS ORDERED: phytonadione 10 MG in SODIUM CHL 0.9% 50 ML IV ONE (13:00)
--- NOTE | 2024-10-27 13:14 | DVHPNRES ---
Progress Note Date Seen: Oct 27, 2024 Resident Creating Document: DOROTHEA TRIVEDI RESIDENT Medical Necessity Reason Pt with a Central, PICC or Fol: No The following are medically ne: Thompson Catheter Subjective Review of Systems CEDDANIELLE FIGUEROA DARÍO is a 69 y o female with PMH of HTN, AFib, hyperlipidemia, GERD, breast cancer, presents in the ED with a chief complaint worsening of abdominal pain. Patient seen and examined at bedside. Overnight events reviewed, Patient reported still have abdominal pain, nausea & vomiting and unable to tolerate p.o., started IV Protonix, IV Zofran. Unable to perform EGD today due to given INR, GI advised no urgent indication for now and outpatient follow up for EGD. Patient reports: No new complaints Objective vital signs Vital Sign Date Time Temp Pulse Resp B/P (MAP) Pulse Ox O2 Delivery O2 Flow Rate FiO2 10/27/24 08:30 97.6 66 16 133/66 (88) 97 97.6 10/26/24 20:00 Room Air* 0 21 Total Intake and Output 10/26/24 10/26/24 10/27/24 15:00 23:00 07:00 Intake Total 460 ml 0 ml Balance 460 ml 0 ml medications Current Medications Medications Dose Ordered Sig/Rosie Route Start Time Stop Time Status Last Admin Dose Admin Ondansetron HCl 4 mg Q4HP PRN IV 10/25/24 12:45 10/26/24 09:04 4 MG Acetaminophen 650 mg Q6HP PRN PO 10/25/24 12:45 10/26/24 21:48 650 MG Pantoprazole Sodium 40 mg DAILY IV 10/26/24 10:00 10/27/24 10:00 40 MG Diltiazem HCl 180 mg BID PO 10/25/24 22:00 10/26/24 21:48 180 MG Pravastatin Sodium 10 mg DAILY PO 10/26/24 10:00 10/26/24 09:05 10 MG Patient Own Medication 30 DAILY PO 10/26/24 10:00 Sucralfate 1 gm BID@0600,2200 GT 10/26/24 10:15 10/26/24 21:46 1 GM Alprazolam 0.25 mg Q6HP PRN PO 10/27/24 09:30 Examination General Appearance: Alert, Oriented X3, Cooperative, HEENT: Atraumatic, PERRLA, EOMI, Mucous membr. moist/pink Respiratory: Clear to auscultation Cardiovascular: Regular rate, Normal S1, Normal S2 Abdominal: Normal bowel sounds, Soft, Other (Epigastric tenderness) Extremities: No clubbing, No cyanosis, No edema, Normal pulses Skin: No rashes, No breakdown, No significant lesion Neuro: Normal tone,sensation Psych/Mental Status: Mental status NL Nurse was there as a electrician wiring during examination laboratory and microbiology Laboratory Tests 10/27/24 05:38 10/26/24 05:58 Test 10/26/24 05:58 Range/Units Serum Glucose 105 74-106 mg/dL Labs and/or images reviewed: Labs reviewed by me, Image(s) reviewed by me Problem List/Assessment/Plan Problem List/Assessment/Plan # Acute abdominal pain ? PUD/ gastritis # Intractable nausea & vomiting # GERD # Cirrhosis MASH/CARRANZA # cholelithiasis - Admit to medical unit - Unable to perform EGD today due to given INR, GI advised to do tomorrow - soft mechanical diet but patient is not tolerating - Antiemetics - PPI and carafate - CT abd/pel showed No acute intraabdominal abnormality. Moderate colonic diverticulosis. Cirrhosis. # Hypertension - home med list obtained - Hydralazine as needed # Chronic AFib - Continue diltiazem - hold therapeutic Lovenox # diverticulosis -given dietary counseling -outpatient follow up # Anxiety depression without suicidal or homicidal ideations - Continue fluoxetine # Morbid obesity with a BMI 39.3 - Lifestyle modification counseled # hyperlipidemia - Statins - Lipid panel Protonox HOld lovenox for procedure NPO Goals of care discussed with the patient for more than 27 minutes: Full code status Case discussed with Dr. Rose, patient and nurse Plan discussed with: Patient My Orders My Orders Orders - DOROTHEA TRIVEDI Procedure Category Date Status Time Phytonadione (Vitamin PHA 10/27/24 Logged K) 13:00 Enoxaparin Sodium PHA 10/27/24 Transmitted (Lovenox) 13:15 DOROTHEA TRIVEDI RESIDENT Oct 27, 2024 13:14
[2024-10-27] MEDS ORDERED: ENOXAPARIN SOD 100 MG/1 ML SYRINGE SC ONE (13:15)
--- NOTE | 2024-10-27 14:37 | DVHPN2 ---
Progress Note Date Seen: Oct 27, 2024 Resident Creating Document: ASHOK EASLEY RESIDENT Medical Necessity Reason Pt with a Central, PICC or Fol: No The following are medically ne: Thompson Catheter Subjective Review of Systems Patient seen and examined at bedside Reports improvement in midepigastric pain, however still persistent Last bowel movement was day before yesterday Per patient, she does not remember when she had her last EGD, last colonoscopy was last year Objective vital signs Vital Sign Date Time Temp Pulse Resp B/P (MAP) Pulse Ox O2 Delivery O2 Flow Rate FiO2 10/27/24 08:30 97.6 66 16 133/66 (88) 97 97.6 10/26/24 20:00 Room Air* 0 21 Total Intake and Output 10/26/24 10/26/24 10/27/24 15:00 23:00 07:00 Intake Total 460 ml 0 ml Balance 460 ml 0 ml medications Current Medications Medications Dose Ordered Sig/Rosie Route Start Time Stop Time Status Last Admin Dose Admin Ondansetron HCl 4 mg Q4HP PRN IV 10/25/24 12:45 10/26/24 09:04 4 MG Acetaminophen 650 mg Q6HP PRN PO 10/25/24 12:45 10/26/24 21:48 650 MG Pantoprazole Sodium 40 mg DAILY IV 10/26/24 10:00 10/27/24 10:00 40 MG Diltiazem HCl 180 mg BID PO 10/25/24 22:00 10/26/24 21:48 180 MG Pravastatin Sodium 10 mg DAILY PO 10/26/24 10:00 10/26/24 09:05 10 MG Patient Own Medication 30 DAILY PO 10/26/24 10:00 Sucralfate 1 gm BID@0600,2200 GT 10/26/24 10:15 10/26/24 21:46 1 GM Alprazolam 0.25 mg Q6HP PRN PO 10/27/24 09:30 Examination General Appearance: Alert, Oriented X3, Cooperative, HEENT: Atraumatic, PERRLA, EOMI, Mucous membr. moist/pink Respiratory: Clear to auscultation Cardiovascular: Regular rate, Normal S1, Normal S2 Abdominal: Normal bowel sounds, Soft, Other (Epigastric tenderness) Extremities: No clubbing, No cyanosis, No edema, Normal pulses Skin: No rashes, No breakdown, No significant lesion Neuro: Normal tone,sensation Psych/Mental Status: Mental status NL Nurse was there as a field instructor during examination laboratory and microbiology Laboratory Tests 10/27/24 05:38 10/26/24 05:58 Test 10/26/24 05:58 Range/Units Serum Glucose 105 74-106 mg/dL Labs and/or images reviewed: Labs reviewed by me, Image(s) reviewed by me Problem List/Assessment/Plan Problem List/Assessment/Plan GERD possible ulcer disease or gastritis Hx of Breast cancers/p lumpectomy and brachytherapy atrial fibrillation Cirrhosis on CT diverticulosis without diverticulitis Hepatic steatosis Hepatomegaly Plan: INR 2.88 today, postponed EGD Held warfarin ordered hepatitis panel; negative for acute disease liver usg; Hepatic steatosis and hepatomegaly.Cholelithiasis without sonographic evidence of acute cholecystitis. continue PPIs Hold lovenox Plan discussed with Dr. Saba Plan discussed with: Patient, Other (RN) ASHOK EASLEY RESIDENT Oct 27, 2024 14:37
[2024-10-27 16:30] VITALS: BP 116/40; PULSE 71; RESP 16; TEMP 98.4; O2SAT 94
[2024-10-27] MEDS: LACTULOSE 20Gm/30ML SOLN PO ONE (18:36)
[2024-10-27] MEDS: WARFARIN SODIUM 5 MG TAB PO ONE (18:37)
[2024-10-27 21:00] VITALS: BP 116/41; PULSE 83; RESP 18; TEMP 98; O2SAT 93
[2024-10-27] MEDS: DOCUSATE SOD 100 MG CAP PO SCH (21:17)
[2024-10-27] MEDS: MELATONIN 5 MG TAB PO PRN (21:20)
[2024-10-28 01:00] VITALS: BP 117/66; PULSE 70; RESP 20; TEMP 97.6; O2SAT 98
[2024-10-28 05:00] VITALS: BP 118/58; PULSE 72; RESP 20; TEMP 98; O2SAT 96
[2024-10-28] MEDS: ALPRAZolam 0.25 MG TAB PO PRN (05:36)
[2024-10-28 06:02] LABS: Potassium 3.9 mmol/L (3.5-5.1); Sodium 141 mmol/L (136-145)
[2024-10-28 06:03] LABS: Anion Gap 7 (5-15); Carbon Dioxide 27 mmol/L (20-31)
[2024-10-28 06:04] LABS: Calcium 10.4 mg/dL (8.7-10.4)
[2024-10-28 06:06] LABS: Basophils # (auto) 0.1 10 ^3/uL (0-0.2); Basophils % (auto) 0.9 % (0.0-2.0); Eosinophils # (auto) 0.1 10 ^3/uL (0-0.8); Eosinophils % (auto) 1.9 % (0.0-7.0); Hematocrit 51.8 % (36.0-46.0); Hemoglobin 17.9 g/dL (12.2-16.2); Lymphocytes # (auto) 1.1 10 ^3/uL (0.4-5.4); Lymphocytes % (auto) 16.4 % (10.0-50.0); Mean Corpuscular Hemoglobin 32.2 pg (28.0-32.0); Mean Corpuscular Hgb Conc. 34.6 g/dL (32.0-36.0); Mean Corpuscular Volume 93.2 fL (80.0-100.0); Monocytes # (auto) 0.5 10 ^3/uL (0-1.3); Monocytes % (auto) 7.2 % (0.0-12.0); Neutrophils # (auto) 5.1 10 ^3/uL (1.6-8.6); Neutrophils % (auto) 73.6 % (37.0-80.0); Nucleated Red Blood Cells % 0.2 %; Platelet Count (auto) 245 10^3/uL (140-450); Red Blood Cells 5.56 10^6/uL (4.0-5.20); Red Cell Distribution Width 13.6 % (11.8-14.3); White Blood Cell 6.9 10^3/uL (4.4-10.8)
[2024-10-28 06:08] LABS: Glucose 101 mg/dL (74-106)
[2024-10-28 06:09] LABS: BUN/Creatinine Ratio 15.6 (10.0-20.0); Blood Urea Nitrogen 14 mg/dL (9-23)
[2024-10-28 06:16] LABS: Chloride 107 mmol/L (98-107)
[2024-10-28 06:20] LABS: INR 2.66 (0.9-1.15); Partial Thromboplastin Time 43.5 SEC (24.5-34.5); Prothrombin Time 25.6 sec (9.3-11.8)
[2024-10-28 09:00] VITALS: BP 111/42; PULSE 98; RESP 18; TEMP 97.9; O2SAT 95
[2024-10-28] MEDS: phytonadione 10 MG in SODIUM CHL 0.9% 50 ML IV ONE (09:08)
[2024-10-28] MEDS: LACTULOSE 20Gm/30ML SOLN PO SCH (09:08)
[2024-10-28 13:00] VITALS: BP_SYST 131; BP_SYST 137; BP_DIAS 64; BP_DIAS 83; PULSE 100; PULSE 90; RESP 18; RESP 19; TEMP 97.8; TEMP 98.1; O2SAT 95; O2SAT 99
--- NOTE | 2024-10-28 13:44 | DVHPN2 ---
Progress Note - Dictate Date Seen: Oct 28, 2024 Medical Necessity Reason Pt with a Central, PICC or Fol: No The following are medically ne: Thompson Catheter Subjective Pt was seen at bedside, resting comfortably Her abdominal pain is improving slightly ; she is able to tolerate a full liquid diet Patient felt that she got her symptoms after she ate a tuna sandwich about three weeks ago Patient did take some ibuprofen recently also Patient states she lives in [place] but works in [place] and most of her doctors are at [facility] vital signs Vital Sign Date Time Temp Pulse Resp B/P (MAP) Pulse Ox O2 Delivery O2 Flow Rate FiO2 10/28/24 13:00 97.8 90 19 137/64 (88) 95 97.8 10/28/24 08:00 Room Air* 0 21 Total Intake and Output 10/27/24 10/27/24 10/28/24 15:00 23:00 07:00 Intake Total 220 ml 0 ml Balance 220 ml 0 ml medications Current Medications Medications Dose Ordered Sig/Rosie Route Start Time Stop Time Status Last Admin Dose Admin Ondansetron HCl 4 mg Q4HP PRN IV 10/25/24 12:45 10/28/24 05:38 4 MG Acetaminophen 650 mg Q6HP PRN PO 10/25/24 12:45 10/26/24 21:48 650 MG Pantoprazole Sodium 40 mg DAILY IV 10/26/24 10:00 10/28/24 09:08 40 MG Diltiazem HCl 180 mg BID PO 10/25/24 22:00 10/27/24 21:17 180 MG Pravastatin Sodium 10 mg DAILY PO 10/26/24 10:00 10/26/24 09:05 10 MG Patient Own Medication 30 DAILY PO 10/26/24 10:00 Sucralfate 1 gm BID@0600,2200 GT 10/26/24 10:15 10/28/24 05:36 1 GM Alprazolam 0.25 mg Q6HP PRN PO 10/27/24 09:30 10/28/24 05:36 0.25 MG Warfarin Sodium RX PROTOCOL PER PHARMACY PO 10/27/24 15:30 Lactulose 15 ml DAILY PO 10/28/24 10:00 Docusate Sodium 100 mg BID PO 10/27/24 22:00 10/27/24 21:17 100 MG Melatonin 5 mg PRN PRN PO 10/27/24 19:15 10/27/24 21:20 5 MG objective General Appearance: Alert, Oriented X3, Cooperative, HEENT: Atraumatic, PERRLA, EOMI, Mucous membr. moist/pink Respiratory: Clear to auscultation Cardiovascular: Regular rate, Normal S1, Normal S2 Abdominal: Normal bowel sounds, Soft, obese, minimal tenderness left upper quadrant Extremities: No clubbing, No cyanosis, No edema, Normal pulses Skin: No rashes, No breakdown, No significant lesion Neuro: Normal tone,sensation Psych/Mental Status: Mental status NL laboratory and microbiology Laboratory Tests 10/28/24 05:35 Test 10/28/24 05:35 Range/Units Serum Glucose 101 74-106 mg/dL ABD CT SCAN IMPRESSION: No acute intraabdominal abnormality. Moderate colonic diverticulosis. Cirrhosis. RUQ USG IMPRESSION: Hepatic steatosis and hepatomegaly. Cholelithiasis without sonographic evidence of acute cholecystitis. Problems(with codes): (1) Abdominal pain (2) Cholelithiasis (3) Diverticulosis (4) Cirrhosis Prognosis Plan I had tentatively planned a possible endoscopy for her yesterday and this morning However the patient's PT INR still very elevated and she did get a dose of Coumadin last night The anesthesia doctor fails the patient is too high-risk for an invasive procedure like an endoscopy at this time This was explained to the patient and her primary care team Resume full liquid diet Patient will likely be discharged home today She can stay on Protonix 40 mg p.o. daily, Carafate 1 g p.o. twice a day I will give her Bentyl 10 mg p.o. twice a day as needed for abdominal pain Patient will be given Levaquin 500 mg p.o. daily to cover a possible GI source of infection as the patient stated symptoms started after eating a tuna sandwich She was given my contact information and she will follow up in my office in 2-4 weeks to arrange outpatient elective panendoscopy Patient is also discussing with the primary care doctor to try to move her appointment up at [facility], currently her appointment is in March Dietary Evaluation Review Comments: 1. Diet advanced from Clear Liquid -> Mechanical Soft diet (10/27) 2. Encourage good oral intakes >75% of meals 3. Plan for EGD tomorrow if INR lab improved, will await findings 4. Agree w/ PPI, Sucralfate, Zofran for GI sx (Hold PO intake for 1 hr before and after sucralfate dosing or per pharmacy guidelines) Expected Outcomes/Goals: Adequate oral intakes, weight maintenace, improvements in GI sx. Plan discussed with: Patient, Other (Dr Rose) JASPAL DAVID MD Oct 28, 2024 13:44
[2024-10-28] MEDS ORDERED: SUCR1SUS26 PO (13:53)
[2024-10-28] MEDS ORDERED: DICY10CA PO (13:53)
[2024-10-28] MEDS ORDERED: ZOFR4T PO (13:53)
[2024-10-28] MEDS ORDERED: AUG875T PO (13:54)
--- NOTE | 2024-10-28 16:21 | DVHDSRES ---
Discharge Summary Date of Admission Resident Creating Document: DOROTHEA TRIVEDI RESIDENT Oct 25, 2024 at 12:37 Date of Discharge: Oct 28, 2024 Admitting Diagnosis Severe abdominal pain with nausea and vomiting Labs/Diagnostic Data: Laboratory Results Test 10/28/24 05:35 10/26/24 05:58 10/25/24 09:21 10/25/24 07:30 White Blood Count 6.9 10^3/uL (4.4-10.8) Red Blood Count 5.56 10^6/uL (4.0-5.20) Hemoglobin 17.9 g/dL (12.2-16.2) Hematocrit 51.8 % (36.0-46.0) Mean Corpuscular Volume 93.2 fL (80.0-100.0) Mean Corpuscular Hemoglobin 32.2 pg (28.0-32.0) Mean Corpuscular Hemoglobin Concent 34.6 g/dL (32.0-36.0) Red Cell Distribution Width 13.6 % (11.8-14.3) Platelet Count 245 10^3/uL (140-450) Mean Platelet Volume 9.0 fL (6.9-10.8) Neutrophils (%) (Auto) 73.6 % (37.0-80.0) Lymphocytes (%) (Auto) 16.4 % (10.0-50.0) Monocytes (%) (Auto) 7.2 % (0.0-12.0) Eosinophils (%) (Auto) 1.9 % (0.0-7.0) Basophils (%) (Auto) 0.9 % (0.0-2.0) Neutrophils # (Auto) 5.1 10 ^3/uL (1.6-8.6) Lymphocytes # (Auto) 1.1 10 ^3/uL (0.4-5.4) Monocytes # (Auto) 0.5 10 ^3/uL (0-1.3) Eosinophils # (Auto) 0.1 10 ^3/uL (0-0.8) Basophils # (Auto) 0.1 10 ^3/uL (0-0.2) Nucleated Red Blood Cells 0.2 % Prothrombin Time 25.6 sec (9.3-11.8) Prothrombin Time INR 2.66 (0.9-1.15) Activated Partial Thromboplast Time 43.5 SEC (24.5-34.5) Sodium Level 141 mmol/L (136-145) Potassium Level 3.9 mmol/L (3.5-5.1) Chloride Level 107 mmol/L (98-107) Carbon Dioxide Level 27 mmol/L (20-31) Anion Gap 7 (5-15) Blood Urea Nitrogen 14 mg/dL (9-23) Creatinine 0.90 mg/dL (0.550-1.02) Glomerular Filtration Rate Calc 70 mL/min (>90) BUN/Creatinine Ratio 15.6 (10.0-20.0) Serum Glucose 101 mg/dL (74-106) Calcium Level 10.4 mg/dL (8.7-10.4) Hemoglobin A1c 5.6 % A1C (<5.7) Total Bilirubin 1.3 mg/dL (0.2-1.0) Aspartate Amino Transferase (AST) 19 U/L (13-40) Alanine Aminotransferase (ALT) 29 U/L (7-40) Alkaline Phosphatase 67 U/L (46-116) B-Type Natriuretic Peptide 63.70 pg/mL (0-100) Total Protein 7.0 g/dL (5.7-8.2) Albumin 4.4 g/dL (3.2-4.8) Triglycerides Level 132 mg/dL (< 150) Cholesterol Level 151 mg/dL (< 200) LDL Cholesterol 70 mg/dL (< 100) HDL Cholesterol 58 mg/dL (40-59) Thyroid Stimulating Hormone (TSH) 1.86 uIU/mL (0.55-4.78) Plasma/Serum Blood Alcohol < 3.0 mg/dL (<10) Hepatitis A Antibody Total Positive (Negative) Hepatitis B Surface Antigen Negative (Negative) Hepatitis B Surface Antibody Positive (Negative) Hepatitis B Core Total Antibody Negative (Negative) Hepatitis C Antibody Negative (Negative) Urine Color Yellow (Yellow) Urine Clarity Turbid (Clear) Urine pH 7.0 (5.0-9.0) Urine Specific [place] 1.017 (1.001-1.035) Urine Protein 1+ (Negative) Urine Ketones 2+ (Negative) Urine Blood Negative /uL (Negative) Urine Nitrite Negative (Negative) Urine Bilirubin Negative (Negative) Urine Urobilinogen Normal mg/dL (Negative) Urine Leukocyte Esterase Negative /uL (Negative) Urine RBC 1 /hpf (0 - 4) Urine Microscopic WBC 5 /HPF (0-5) Urine Squamous Epithelial Cells Few /hpf (<5) Urine Bacteria None seen /hpf (None Seen) Urine Mucus Few (None Seen) Urine Glucose Normal mg/dL (Normal) Lipase 41 U/L (12-53) Other Laboratory Tests 10/28/24 05:35 Brief Hx & Hospital Course: DANIELLE COUGHLIN is a 69 y o female with PMH of HTN, AFib, hyperlipidemia, GERD, breast cancer, presents in the ED with a chief complaint worsening of abdominal pain, intractable nausea and vomiting. Patient states progressive epigastric pain radiating to left lower quadrant and is associated with nausea and constipation has been going on for 4 weeks and she went to [facility] and she is scheduled for endoscopy and colonoscopy with her GI in January but patient started have worsening of abdominal pain with intractable nausea and vomiting which brought her to visit ED. Denies fever, chest pain, shortness of breath, vomiting, hematemesis, or melena. Patient required hospital admission for further evaluation and management of severe abdominal pain. Patient was continuously having intractable nausea and vomiting and she was unable to tolerate p.o., patient was kept NPO and started on IV Protonix, IV Zofran. CT abd/pel showed No acute intraabdominal abnormality. Moderate colonic diverticulosis. Cirrhosis. GI homemaking rehabilitation consultant evaluated the patient and advised to do EGD initially but due to high INR patient was switched to therapeutic Lovenox and given vitamin K to reverse warfarin despite of the patient's continuous having high INR and GI homemaking rehabilitation consultant re-evaluated the patient and advised to do EGD on outpatient as soon as possible after the discharge. Patient was discharged with Protonix, Carafate, Zofran and advised to be on full liquid diet and given dietary counseling. Patient will advised to follow up with GI for endoscopy and workup of cirrhosis. General Appearance: Alert, Oriented X3, Cooperative, HEENT: Atraumatic, PERRLA, EOMI, Mucous membr. moist/pink Respiratory: Clear to auscultation Cardiovascular: Regular rate, Normal S1, Normal S2 Abdominal: Normal bowel sounds, Soft, Other (Epigastric tenderness) Extremities: No clubbing, No cyanosis, No edema, Normal pulses Skin: No rashes, No breakdown, No significant lesion Neuro: Normal tone,sensation Psych/Mental Status: Mental status NL Nurse was there as a treasury agent during examination Operations or Procedures CT abd/pel showed No acute intraabdominal abnormality. Moderate colonic diverticulosis. Cirrhosis. TECHNIQUE: Multiple real-time sonographic images of the right upper abdomen were obtained. Cholelithiasis without sonographic evidence of acute cholecystitis. Condition at Discharge: Stable Final Diagnosis/Problems List # Acute abdominal pain ? PUD/ gastritis # GERD # Cirrhosis MASH/CARRANZA # Cholelthiasis # Hypertension # Chronic AFib with secondary hypercoagulable state # Diverticulosis # Anxiety depression without suicidal or homicidal ideations # Morbid obesity with a BMI 39.3 # hyperlipidemia Discharge Disposition: Home Discharge Instruct/Medications Diet: See Comment Diet comment: Full liquid diet Activity: No Restrictions, As Tolerated Follow Up/Referral: GI for outpatient endoscopy Medications: Protonix 40 mg p.o. b.i.d. Carafate p.o. b.i.d. Dicyclomine 10 mg p.o. b.i.d. Levaquin 500 mg p.o. b.i.d. Zofran p.o. p.r.n. Resume home medications Discharge Statement: "Patient was advised to return to the ER or call 911 if any headaches, dizziness, shortness of breath, chest pain, abdominal pain, bleeding, fevers, or worsening of medical condition. Patient was counseled about treatment plan, medications, possible side effects, patientverbalized understanding. All questions were answered to the best of my ability. This discharge took greater then 30 minutes in planning, reviewing documentation, counseling the patient, and discussing with other team members." ASSESSMENT ASSESSMENT Assessment DOROTHEA REYES RESIDENT Oct 28, 2024 16:21
[2024-10-28] MEDS ORDERED: WARFARIN SODIUM 5 MG TAB PO ONE (17:00)
== END 2024-10-28 16:18 | disposition home or self-care (01) | DRG 384 ==
LOC: ER 06:52 → EDBD 06:52 → OVERFLOW 12:37 → EAST 17:06
PROVIDERS: ADMIT Student in an Organized Health Care Education/Training Program; ATTEND Student in an Organized Health Care Education/Training Program
DX: K27.9 Peptic ulcer, site unspecified, unspecified as acute or chronic, without hemorrhage or perforation (principal); I48.20 Chronic atrial fibrillation, unspecified; D68.69 Other thrombophilia; K29.70 Gastritis, unspecified, without bleeding; K80.20 Calculus of gallbladder without cholecystitis without obstruction; K57.30 Diverticulosis of large intestine without perforation or abscess without bleeding; K21.9 Gastro-esophageal reflux disease without esophagitis; F32.A Depression, unspecified; I10 Essential (primary) hypertension; F41.9 Anxiety disorder, unspecified; E78.5 Hyperlipidemia, unspecified; Z68.39 Body mass index [BMI] 39.0-39.9, adult; E66.01 Morbid (severe) obesity due to excess calories; K74.60 Unspecified cirrhosis of liver; K76.0 Fatty (change of) liver, not elsewhere classified; R16.0 Hepatomegaly, not elsewhere classified; Z79.01 Long term (current) use of anticoagulants; Z82.3 Family history of stroke; Z83.3 Family history of diabetes mellitus; Z85.3 Personal history of malignant neoplasm of breast; Z87.891 Personal history of nicotine dependence; Z88.5 Allergy status to narcotic agent; Z90.710 Acquired absence of both cervix and uterus; Z79.899 Other long term (current) drug therapy
CPT/HCPCS: 36415; 71045; 74176; 76705; 80048; 80053; 80061; 80320; 81001; 83036; 83690; 83880; 84443; 85025; 85610; 85730; 86704; 86706; 86708; 86803; 87340; 93005; 96374; 96375; 99291; G0378; J2250; J2405; J2470; J3430

== ENCOUNTER 2024-11-05 05:54 | Emergency (ER) | payer MEDICARE, OTHER ==
[~2024-11-05] VITALS: Ht 175.3 cm; Wt 113.3 kg
[~2024-11-05 05:54] MED LIST changes: +DICY10CA PO; +SUCR1SUS26 PO; +ZOFR4T PO
[2024-11-05 06:51] VITALS: PULSE 56; RESP 16; O2SAT 96
[2024-11-05 07:16] VITALS: TEMP 97.5
--- NOTE | 2024-11-05 07:16 | ED.PDOC ---
GI ASSESSMENT HPI Comments 69 y/o F, BIBA with PMHX of gallstones, cholecystis, GERD, and cancer presents to the ED for CC of abdominal pain. Patient states, that she has been experiencing abdominal pain/distension with associated symptoms of nausea, vomiting, and constipation x1week. Patient relays, that she was recently discharged from [facility] on 10/28/24 for Dx:Acute abdominal pain with symptoms persisting. Patient reports, recently missing her dose of psyllium. Patient com ments, " I've cleaned myself out" and symptoms cannot be due to constipation although patient endorses feeling backed up. Patient denies dysuria, back pain, hematemesis, or melena. No other symptoms or modifying factors at this time. Chief Complaint: Abdominal Pain Time Seen by MD: 06:50 Primary Care Provider: Bessy Mortensen [facility] Reviewed Notes: Nurses Notes, Supervisor Prepress Notes, Medications, Allergies Allergies: Coded Allergies: Morphine (Verified Allergy, Unknown, 05/02/19) Home Meds Active Scripts Amoxicillin & Pot Clavulanate (AUGMENTIN TABLET) 875 Mg Tb, 875 MG PO BID for 5 Days, #10 TAB Prov:DOROTHEA TRIVEDI 10/28/24 Dicyclomine Hcl (BENTYL CAPSULE) 10 Mg Cp, 1 CAP PO BID for 15 Days, #30 CAP 11 Refills Prov:DOROTHEA TRIVEDI 10/28/24 Ondansetron Odt 4MG Tab (ZOFRAN PO) 4 Mg Tb, 4 MG PO PRN for 10 Days, #20 TAB ODT TAB-DISSOLVE IN MOUTH, THEN SWALLOW Prov:DOROTHEA TRIVEDI 10/28/24 Sucralfate (CARAFATE SUSP) 1 Gm/10 Ml Ss, 10 ML PO BID for 30 Days, #600 ML 1 Refill Prov:DOROTHEA TRIVEDI 10/28/24 Prednisone (Prednisone) 20 Mg Tab, 60 MG PO DAILY, #21 MG Prov:MADI MILLER 07/02/24 Tobramycin Sulfate (Tobrex) [address], 2 DROP OP QID, #5 ML Prov:MADI MILLER 07/02/24 Trazodone Hcl (Trazodone Hcl) 100 Mg Tab, 1 TAB PO QPM PRN, #30 TAB 0 Refills Prov:RUDDY MURRAY MD 06/02/24 Meclizine HCl (Meclizine 25) 25 Mg Tab, 25 MG PO QPM for 14 Days, #14 TAB Prov:RUDDY MURRAY MD 06/02/24 Losartan Potassium (Losartan Potassium) 25 Mg Tab, 12.5 MG PO QPM for 30 Days, #15 TAB 1 Refill Prov:RUDDY MURRAY MD 06/02/24 Omeprazole Magnesium (Omeprazole) 20 Mg Tab, 20 MG PO DAILY, #30 TAB Prov:THA SNADS 10/15/23 Albuterol Sulfate (Albuterol Sulfate Hfa) 108 Mcg/Act Aer, 108 MCG IN TID, #1 AER Prov:THA SANDS 10/15/23 Reported Medications Warfarin Sodium (Warfarin Sodium) 5 Mg Tab, 2 TAB PO QPM, MG 2 TABLETS (10 MG TOTAL) BY MOUTH AT NIGHT FOR CHRONIC ATRIAL FIBRILLATION 06/01/24 Pravastatin Sodium (PRAVACHOL TABLET) 20 Mg Tb, 10 MG PO DAILY, TAB 06/01/24 Diltiazem Hcl (Dilt-Xr) 180 Mg Cap, 180 MG PO BID, CAP 06/01/24 Fluoxetine HCl (Pmdd) (Fluoxetine HCl) 10 Mg Tab, 30 MG PO DAILY, TAB 06/01/24 Information Source: Patient Mode of Arrival: EMS Timing: Days Duration: Since onset Prehospital treatment: None Quality: None Vomitus: Watery Stool: Normal Severity: Moderate Recent: None Recent Hx of: None Pain Location: Diffuse Modifying Factors: Nothing Associated sign and symptoms: Nausea, Vomiting, Abdominal Pain Past Medical History PAST MEDICAL HISTORY: AFIB, Cancer, GERD, High Lipids Surgical History: Hysterectomy 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 History Family History Family History: Family hx of DM, Family hx of Cancer Social History Smoker: Quit Greater Than 1 Year Alcohol: Denies ETOH Use Drugs: Denies Drug Use Lives In: Home Constitutional: denies: chills, diaphoresis, fatigue, fever, malaise, sweats, weakness, others EENTM: denies: blurred vision, double vision, ear bleeding, ear discharge, ear drainage, ear pain, ear ringing, eye pain, eye redness, hearing loss, mouth pain, mouth swelling, nasal discharge, nose bleeding, nose congestion, nose pain, photophobia, tearing, throat pain, throat swelling, voice changes, others Respiratory: denies: cough, hemoptysis, orthopnea, SOB at rest, shortness of breath, SOB with excertion, stridor, wheezing, others Cardiovascular: denies: chest pain, dizzy spells, diaphoresis, Dyspnea on exertion, edema, irregular heart beat, left arm pain, lightheadedness, palpitations, PND, syncope, others Gastrointestinal: reports: abdomen distended, abdominal pain, nausea, vomiting; denies: blood streaked bowels, constipated, diarrhea, dysphagia, difficulty swallowing, hematemesis, melena, poor appetite, poor fluid intake, rectal bleeding, rectal pain, others Genitourinary: denies: abnormal vagina bleeding, burning, dyspareunia, dysuria, flank pain, frequency, hematuria, incontinence, pain, , vagina discharge, urgency, others Neurological: denies: dizziness, fainting, headache, left sided numbness, left sided weakness, numbness, paresthesia, pre-existing deficit, right sided numbness, right sided weakness, seizure, speech problems, tingling, tremors, weakness, others Musculoskeletal: denies: back pain, gout, joint pain, joint swelling, muscle pain, muscle stiffness, neck pain, others Integumetry: denies: bruises, change in color, change in hair/nails, dryness, laceration, lesions, lumps, rash, wounds, others Allergic/Immunocompromised: denies: Difficulty Healing, Frequent Infections, Hives, Itching, others Hematologic/Lymphatic: denies: anemia, blood clots, easy bleeding, easy bruising, swollen glands, others Endocrine: denies: excessive hunger, excessive sweating, excessive thirst, excessive urination, flushing, intolerance to cold, intolerance to heat, unexplained weight gain, unexplained weight loss, others Psychiatric: denies: anxiety, bipolar disorder, depression, hopeless, panic dis order, schizophrenia, sleepless, suicidal, others All Other Systems: Reviewed and Negative Physical Exam General Appearance: No Apparent Distress, Obese HEENT: Normal ENT Inspection, Pharynx Normal, TMs Normal Neck: Full Range of Motion, Non-Tender, Normal, Normal Inspection Respiratory: Chest Non-Tender, Lungs Clear, No Accessory Muscle Use, No Respiratory Distress, Normal Breath Sounds Cardiovascular: No Edema, No JVD, No Murmur, No Gallop, Normal Peripheral Pulses, Regular Rate/Rhythm Breast Exam: Deferred Gastrointestinal: No Pulsatile Mass, Normal Bowel Sounds, Other (LARGE panniculus) Genitalia: Deferred Pelvic: Deferred Rectal: Deferred Extremities: No calf tenderness, Normal capillary refill, Normal inspection, Normal range of motion, Non-tender, No pedal edema Musculoskeletal : Apperance: Normal 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 Was a procedure done?: No GI differential Dx Differential Diagnosis: Constipation, Gastritis/PUD, Gastroenteritis, Electrolyte Imbalance, Food Poisoning, Bacterial, Viral X-Ray, Labs, Meds, VS Vital Signs Date Time Temp Pulse Resp B/P (MAP) Pulse Ox O2 Delivery O2 Flow Rate FiO2 11/05/24 09:00 58 18 136/80 (98) 98 11/05/24 08:00 57 13 136/80 (98) 98 11/05/24 07:16 97.5 58 18 140/86 (104) 98 97.5 11/05/24 07:16 Room Air* 0 21 11/05/24 06:51 56 16 96 Room Air* 0 21 11/05/24 06:51 98.3 56 18 153/83 (106) 97 98.3 11/05/24 06:01 62 11/05/24 06:00 98.7 64 18 126/78 (94) 99 98.7 Lab Test 11/05/24 07:55 11/05/24 07:00 Range/Units White Blood Count 8.0 4.4-10.8 10^3/uL Red Blood Count 5.43 H 4.0-5.20 10^6/uL Hemoglobin 18.0 H 12.2-16.2 g/dL Hematocrit 51.0 H 36.0-46.0 % Mean Corpuscular Volume 93.8 80.0-100.0 fL Mean Corpuscular Hemoglobin 33.1 H 28.0-32.0 pg Mean Corpuscular Hemoglobin Concent 35.2 32.0-36.0 g/dL Red Cell Distribution Width 13.8 11.8-14.3 % Platelet Count 230 140-450 10^3/uL Mean Platelet Volume 9.4 6.9-10.8 fL Neutrophils (%) (Auto) 80.4 H 37.0-80.0 % Lymphocytes (%) (Auto) 11.5 10.0-50.0 % Monocytes (%) (Auto) 6.5 0.0-12.0 % Eosinophils (%) (Auto) 1.0 0.0-7.0 % Basophils (%) (Auto) 0.6 0.0-2.0 % Neutrophils # (Auto) 6.5 1.6-8.6 10 ^3/uL Lymphocytes # (Auto) 0.9 0.4-5.4 10 ^3/uL Monocytes # (Auto) 0.5 0-1.3 10 ^3/uL Eosinophils # (Auto) 0.1 0-0.8 10 ^3/uL Basophils # (Auto) 0.1 0-0.2 10 ^3/uL Nucleated Red Blood Cells 0.2 % Prothrombin Time 22.9 H 9.3-11.8 sec Prothrombin Time INR 2.35 H 0.9-1.15 Activated Partial Thromboplast Time 37.6 H 24.5-34.5 SEC Sodium Level 141 136-145 mmol/L Potassium Level 3.6 3.5-5.1 mmol/L Chloride Level 107 98-107 mmol/L Carbon Dioxide Level 22 20-31 mmol/L Anion Gap 12 5-15 Blood Urea Nitrogen 9 9-23 mg/dL Creatinine 0.84 0.550-1.02 mg/dL Glomerular Filtration Rate Calc 76 >90 mL/min BUN/Creatinine Ratio 10.7 10.0-20.0 Serum Glucose 101 74-106 mg/dL Lactic Acid Level 1.3 0.4-2.0 mmol/L Calcium Level 10.3 8.7-10.4 mg/dL Total Bilirubin 1.0 0.2-1.0 mg/dL Aspartate Amino Transferase (AST) 23 13-40 U/L Alanine Aminotransferase (ALT) 34 7-40 U/L Alkaline Phosphatase 65 46-116 U/L Total Protein 6.9 5.7-8.2 g/dL Albumin 4.2 3.2-4.8 g/dL Lipase 44 12-53 U/L Urine Color Light-yellow Yellow Urine Clarity Clear Clear Urine pH 6.0 5.0-9.0 Urine Specific [place] 1.015 1.001-1.035 Urine Protein Negative Negative Urine Ketones Negative Negative Urine Blood Negative Negative /uL Urine Nitrite Negative Negative Urine Bilirubin Negative Negative Urine Urobilinogen Normal Negative mg/dL Urine Leukocyte Esterase 1+ Negative /uL Urine RBC 2 0 - 4 /hpf Urine Microscopic WBC 12 H 0-5 /HPF Urine Squamous Epithelial Cells Few <5 /hpf Urine Bacteria Few H None Seen /hpf Urine Hyaline Casts Few 0 - 2 /lpf Urine Mucus Few None Seen Urine Glucose Normal Normal mg/dL Current Medications Medications (Trade) Dose Ordered Sig/Rosie Route Start Time Stop Time Status Last Admin Ketorolac Tromethamine (Toradol Injection) 30 mg ONCE ONCE IV 11/05/24 09:30 11/05/24 09:31 DC 11/05/24 10:03 Sodium Chloride 1,000 ml @ 75 mls/hr [id number] ONCE IV 11/05/24 09:30 11/05/24 22:49 11/05/24 10:03 [place] [id number] Ph: [phone] DIAGNOSTIC IMAGING Diagnostic Imaging Report : [id number] Signed PATIENT: DANIELLE COUGHLINACCT: [id number] UNIT: [id number] : 1955 LOC: ER ROOM / BED: / AGE / SEX: 69 / F ADM STATUS: REG ER SERVICE 0705 ORDERING PHYSICIAN: SAFIA BOWLING MD PROCEDURE(s): ABPL - CT AB PEL WO CON-NO ORAL OR IV REASON: abd pain ORDER NUMBER(s): [id number], ACCESSION NUMBER(s): [id number] CLINICAL INFORMATION: Abdominal pain. TECHNIQUE: Axial CT images of the abdomen and pelvis were obtained without IV contrast. Coronal and sagittal reformatted images were obtained, reviewed, and stored. Evaluation of the parenchymal organs is limited without IV contrast. Evaluation of the bowel and mesentery is limited without oral contrast. All CT scans at this medical facility are performed using dose modulation techniques as appropriate to a performed exam including the following: Automated exposure con trol was utilized; adjustment of the MA and/or KV according to patient size; and use of iterative reconstruction technique. CTDIvol = 27.68 mGy DLP = 1299.82 mGy-cm COMPARISON: CT CT AB PEL WO CON-NO ORAL OR IV on DOS: 10/25/24 FINDINGS: Lung bases: Mild atelectasis in the lung bases. Pulmonary cyst in the left lower lobe. Liver: Small subcentimeter low-attenuation lesion in the posterior right hepatic lobe, possible small cyst or hemangioma, too small to characterize. Biliary: Mildly distended gallbladder. Questionable small calcified gallstones near the gallbladder neck. Spleen: Unremarkable. Pancreas: Mildly atrophic. Adrenal glands: Unremarkable. No mass. Kidneys: No hydronephrosis. No renal or ureteral calculi. Aorta/Vascular: Moderate atherosclerotic calcification. No abdominal aortic aneurysm. Retroperitoneum: No mass or lymphadenopathy. Bowel/mesentery: No small bowel obstruction. No free air or free fluid. Appendix is visualized and appears unremarkable. Scattered colonic diverticula without adjacent inflammatory changes to suggest diverticulitis. Pelvic organs: Uterus is surgically absent. Bladder: Unremarkable. No mass. Abdominal wall: No mass or hernia. Bones: No acute fracture or suspicious intraosseous lesion. Multilevel degenerative disc disease in the lumbar spine and visualized portions of the thoracic spine, with disc space narrowing, endplate sclerosis, and endplate spurring. IMPRESSION: 1. Scattered colonic diverticula without adjacent inflammatory changes to suggest diverticulitis. 2. Distended gallbladder. Questionable small calcified gallstones near the gallbladder neck correlate with clinical findings. If clinically indicated, ultrasound could be obtained. 3. Additional nonacute findings as described above. ATED BY: YOANDY ORELLANA DO DICTATED DATE/TIME: 11/05/24808 SIGNED BY: YOANDY ORELLANA DO SIGNED DATE/TIME: 11/05/24808 CC: X-Ray, Labs, Meds, VS Comment This 69-year-old female presents secondary to abdominal pain. She was history of constipation and has not taken her medication x2 days. She was migratory abdominal pain that is generalized. Physical exam was benign. CT scan and labs were all read as benign. However, I reviewed the CT shows copious amounts of stool throughout her colon. As such, believe her abdominal pain secondary to constipation. I will discharge the patient home with polyethylene glycol. She was asked to take polyethylene glycol into her stools are clear. She states her understanding. She was follow up with the PCP next 1 2 days return to the ER for new/worse/worsening symptoms, she should consider a heart healthy high-fiber diet. Time of 1ST Reevaluation: 07:20 Reevaluation 1ST: Unchanged Patient Education/Counseling: Diagnosis, Treatment Family Education/Counseling: No Family Present Departure 1 Departure Time of Disposition: 11:45 Impression: Primary Impression: Abdominal pain Additional Impressions: Constipation Hepatic steatosis Disposition: 01 HOME / SELF CARE / HOMELESS Condition: Good Critical Care Note Critical Care Time?: No Stability Stability form required: No Heart Score Heart Score: Heart Score Response (Comments) Value History N/A 0 EKG N/A 0 Age N/A 0 Risk Factors N/A 0 Troponin N/A 0 Total 0 I personally scribed for SAFIA BOWLING MD ([email or web address]) on 11/05/24 at 07:16. Electronically submitted by Pham Christina ([email or web address]). I personally scribed for SAFIA BOWLING MD ([email or web address]) on 11/05/24 at 07:26. Electronically submitted by Pham Christina ([email or web address]). I personally scribed for SAFIA BOWLING MD ([email or web address]) on 11/05/24 at 08:40. Electronically submitted by Pham Christina ([email or web address]). SAFIA BOWLING MD Nov 05, 2024 07:16
[2024-11-05 07:37] LABS: Urine Bacteria FEW /hpf (None Seen); Urine Blood Negative /uL (Negative); Urine Clarity Clear (Clear); Urine Color Light-Yellow (Yellow); Urine Hyaline Cast FEW /lpf (0 - 2); Urine Mucus FEW (None Seen); Urine Protein, UAD Negative (Negative); Urine Specific Gravity 1.015 (1.001-1.035); Urine Squamous Epithelial Cell FEW /hpf (<5); Urine Urobilinogen Normal (Negative); Urine WBC 12 /HPF (0-5)
--- NOTE | 2024-11-05 08:11 | DVH ---
CLINICAL INFORMATION: Abdominal pain. TECHNIQUE: Axial CT images of the abdomen and pelvis were obtained without IV contrast. Coronal and s agittal reformatted images were obtained, reviewed, and stored. Evaluation of the parenchymal organs is limited without IV contrast. Evaluation of the bowel and mesentery is limited without oral contras t. All CT scans at this medical facility are performed using dose modulation techniques as appropriat e to a performed exam including the following: Automated exposure control was utilized; adjustment of the MA and/or KV according to patient size; and use of iterative reconstruction technique. CTDIvol = 27.68 mGy DLP = 1299.82 mGy-cm COMPARISON: CT CT AB PEL WO CON-NO ORAL OR IV on DOS: 10/25/24 FINDINGS: Lung bases: Mild atelectasis in the lung bases. Pulmonary cyst in the left lower lobe. Liver: Small subcentimeter low-attenuation lesion in the posterior right hepatic lobe, possible small cyst or hemangioma, too small to characterize. Biliary: Mildly distended gallbladder. Questionable small calcified gallstones near the gallbladder n kasie. Spleen: Unremarkable. Pancreas: Mildly atrophic. Adrenal glands: Unremarkable. No mass. Kidneys: No hydronephrosis. No renal or ureteral calculi. Aorta/Vascular: Moderate atherosclerotic calcification. No abdominal aortic aneurysm. Retroperitoneum: No mass or lymphadenopathy. Bowel/mesentery: No small bowel obstruction. No free air or free fluid. Appendix is visualized and ap pears unremarkable. Scattered colonic diverticula without adjacent inflammatory changes to suggest d iverticulitis. Pelvic organs: Uterus is surgically absent. Bladder: Unremarkable. No mass. Abdominal wall: No mass or hernia. Bones: No acute fracture or suspicious intraosseous lesion. Multilevel degenerative disc disease in t he lumbar spine and visualized portions of the thoracic spine, with disc space narrowing, endplate sc lerosis, and endplate spurring. IMPRESSION: 1. Scattered colonic diverticula without adjacent inflammatory changes to suggest diverticulitis. 2. Distended gallbladder. Questionable small calcified gallstones near the gallbladder neck correlat e with clinical findings. If clinically indicated, ultrasound could be obtained. 3. Additional nonacute findings as described above.
[2024-11-05 08:25] LABS: Basophils # (auto) 0.1 10 ^3/uL (0-0.2); Eosinophils # (auto) 0.1 10 ^3/uL (0-0.8); Monocytes # (auto) 0.5 10 ^3/uL (0-1.3)
[2024-11-05 08:27] LABS: Basophils % (auto) 0.6 % (0.0-2.0); Lymphocytes # (auto) 0.9 10 ^3/uL (0.4-5.4); Lymphocytes % (auto) 11.5 % (10.0-50.0); Mean Corpuscular Hemoglobin 33.1 pg (28.0-32.0); Mean Corpuscular Hgb Conc. 35.2 g/dL (32.0-36.0); Mean Corpuscular Volume 93.8 fL (80.0-100.0); Monocytes % (auto) 6.5 % (0.0-12.0); Neutrophils # (auto) 6.5 10 ^3/uL (1.6-8.6); Neutrophils % (auto) 80.4 % (37.0-80.0); Nucleated Red Blood Cells % 0.2 %; Platelet Count (auto) 230 10^3/uL (140-450); Red Blood Cells 5.43 10^6/uL (4.0-5.20); Red Cell Distribution Width 13.8 % (11.8-14.3)
[2024-11-05 08:38] LABS: Alanine Aminotransferase 34 U/L (7-40); Albumin 4.2 g/dL (3.2-4.8); Alkaline Phosphatase 65 U/L (46-116); Aspartate Aminotransferase 23 U/L (13-40); BUN/Creatinine Ratio 10.7 (10.0-20.0); Calcium 10.3 mg/dL (8.7-10.4); Glucose 101 mg/dL (74-106); Total Protein 6.9 g/dL (5.7-8.2)
[2024-11-05 08:40] LABS: INR 2.35 (0.9-1.15); Partial Thromboplastin Time 37.6 SEC (24.5-34.5); Prothrombin Time 22.9 sec (9.3-11.8)
[2024-11-05 08:55] LABS: Blood Urea Nitrogen 9 mg/dL (9-23)
[2024-11-05 08:59] LABS: Anion Gap 12 (5-15); Carbon Dioxide 22 mmol/L (20-31); Chloride 107 mmol/L (98-107); Potassium 3.6 mmol/L (3.5-5.1); Sodium 141 mmol/L (136-145)
--- NOTE | 2024-11-05 09:18 | ECG ---
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
[2024-11-05] MEDS: KETOROLAC TROMETH 30 MG/ML 1ML VIAL IV ONE (10:03)
[2024-11-05] MEDS: SODIUM CHLORIDE 0.9% 1,000 ML IV ONE (10:03)
[2024-11-05 10:25] LABS: Lipase 44 U/L (12-53)
--- NOTE | 2024-11-05 11:16 | DVH ---
ULTRASOUND ABDOMEN LIMITED INDICATION: r/o mike TECHNIQUE: Multiple real-time sonographic images of the abdomen were obtained. COMPARISON: US ABDOMEN LIMITED on DOS: 10/26/24 FINDINGS: The visualized liver parenchyma appears echogenic consistent with steatosis. . The liver measures 19.8 cm. No discrete hepatic lesion or intrahepatic biliary ductal dilatation is identified. There are small gallstones seen within the gallbladder neck.. There is no gallbladder wall thickening or pericholecystic fluid. The special educator reports a negative Ross's sign. The common duct is not seen on the current study. The right kidney measures 11.8 cm length. Left kidney measures 10.3 cm. There is a 8 mm calculus in the midpole of the left kidney. There is no hydronephrosis. Pancreas is obscured by bowel gas. IMPRESSION: 1. There are small gallstones seen within the gallbladder neck. There are no sonographic features of acute cholecystitis. The common duct is not seen on the current study. 2. Hepatomegaly with hepatic steatosis. 3. 8 mm nonobstructive left midpole renal calculus. HS:Y ARITA POLLARD
[2024-11-05] MEDS ORDERED: PEGSOL11 OR (11:47)
[2024-11-05 12:56] VITALS: BP 150/97; PULSE 53; RESP 12; O2SAT 97
== END 2024-11-05 13:12 | disposition home or self-care (01) ==
LOC: EDBD 05:54 → ER 05:54
DX: K59.00 Constipation, unspecified (principal); K76.0 Fatty (change of) liver, not elsewhere classified; I48.91 Unspecified atrial fibrillation; E78.5 Hyperlipidemia, unspecified; Z79.01 Long term (current) use of anticoagulants; Z79.52 Long term (current) use of systemic steroids; Z79.899 Other long term (current) drug therapy; Z90.710 Acquired absence of both cervix and uterus; Z88.5 Allergy status to narcotic agent
CPT/HCPCS: 36415; 74176; 76705; 80053; 81001; 83605; 83690; 85025; 85610; 85730; 93005; 96361; 96374; 99285; J1885; J7030; 96360

== ENCOUNTER 2025-02-13 13:37 | Inpatient (IN) | payer OTHER, MEDICARE ==
[~2025-02-13] VITALS: Ht 175.3 cm; Wt 113.5 kg
[~2025-02-13 13:37] MED LIST changes: +PEGSOL11 OR
[2025-02-13 14:20] LABS: Hematocrit 51.5 % (36.0-46.0); Hemoglobin 17.5 g/dL (12.2-16.2); Mean Corpuscular Hemoglobin 31.2 pg (28.0-32.0); Mean Corpuscular Volume 91.7 fL (80.0-100.0); Nucleated Red Blood Cells % 0.1 %
--- NOTE | 2025-02-13 14:21 | ED.PDOC ---
History of Present Illness HPI Comments 69-year-old female with PMHx A-Fib presents with a chief complaint of SOB and cough x onset February 09, 2025. Patient states that she took two COVID tests at home and they were positive. Patient states that she called her doctors office and was referred to the ER. Patient is not actively coughing, and is able to speak in full, complete sentences. Time Seen by MD: 13:54 Primary Care Provider: Bessy Mortensen [facility] Reviewed Notes: Medications, Allergies Allergies: Coded Allergies: Morphine (Verified Allergy, Unknown, 05/02/19) Home Meds Active Scripts Peg 6460-Wjy-Fdn Bicarb-Sod Ch (Golytely) [place], 1 APPLIC OR QID, #473 ML Prov:SAFIA BOWLING MD 11/05/24 Amoxicillin & Pot Clavulanate (AUGMENTIN TABLET) 875 Mg Tb, 875 MG PO BID for 5 Days, #10 TAB Prov:DOROTHEA TRIVEDI 10/28/24 Dicyclomine Hcl (BENTYL CAPSULE) 10 Mg Cp, 1 CAP PO BID for 15 Days, #30 CAP 11 Refills Prov:DOROTHEA TRIVEDI 10/28/24 Ondansetron Odt 4MG Tab (ZOFRAN PO) 4 Mg Tb, 4 MG PO PRN for 10 Days, #20 TAB ODT TAB-DISSOLVE IN MOUTH, THEN SWALLOW Prov:DOROTHEA TRIVEDI 10/28/24 Sucralfate (CARAFATE SUSP) 1 Gm/10 Ml Ss, 10 ML PO BID for 30 Days, #600 ML 1 Refill Prov:DOROTHEA TRIVEDI 10/28/24 Prednisone (Prednisone) 20 Mg Tab, 60 MG PO DAILY, #21 MG Prov:MADI MILLER 07/02/24 Tobramycin Sulfate (Tobrex) [address], 2 DROP OP QID, #5 ML Prov:MADI MILLER 07/02/24 Trazodone Hcl (Trazodone Hcl) 100 Mg Tab, 1 TAB PO QPM PRN, #30 TAB 0 Refills Prov:RUDDY MURRAY MD 06/02/24 Meclizine HCl (Meclizine 25) 25 Mg Tab, 25 MG PO QPM for 14 Days, #14 TAB Prov:RUDDY MURRAY MD 06/02/24 Losartan Potassium (Losartan Potassium) 25 Mg Tab, 12.5 MG PO QPM for 30 Days, #15 TAB 1 Refill Prov:RUDDY MURRAY MD 06/02/24 Omeprazole Magnesium (Omeprazole) 20 Mg Tab, 20 MG PO DAILY, #30 TAB Prov:THA SANDS 10/15/23 Albuterol Sulfate (Albuterol Sulfate Hfa) 108 Mcg/Act Aer, 108 MCG IN TID, #1 AER Prov:THA SANDS 10/15/23 Reported Medications Warfarin Sodium (Warfarin Sodium) 5 Mg Tab, 2 TAB PO QPM, MG 2 TABLETS (10 MG TOTAL) BY MOUTH AT NIGHT FOR CHRONIC ATRIAL FIBRILLATION 06/01/24 Pravastatin Sodium (PRAVACHOL TABLET) 20 Mg Tb, 10 MG PO DAILY, TAB 06/01/24 Diltiazem Hcl (Dilt-Xr) 180 Mg Cap, 180 MG PO BID, CAP 06/01/24 Fluoxetine HCl (Pmdd) (Fluoxetine HCl) 10 Mg Tab, 30 MG PO DAILY, TAB 06/01/24 Information Source: Patient Mode of Arrival: Ambulatory Severity: Moderate Timing: Days Duration: Since onset Prehospital treatment: None Past Medical History PAST MEDICAL HISTORY: AFIB, Cancer, GERD, High Lipids Surgical History: Hysterectomy 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 Family History Family History: Family hx of DM, Family hx of Cancer Social History Smoker: Quit Greater Than 1 Year Alcohol: Denies ETOH Use Drugs: Denies Drug Use Lives In: Home Constitutional: denies: chills, diaphoresis, fatigue, fever, malaise, sweats, weakness, others EENTM: denies: blurred vision, double vision, ear bleeding, ear discharge, ear drainage, ear pain, ear ringing, eye pain, eye redness, hearing loss, mouth pain, mouth swelling, nasal discharge, nose bleeding, nose congestion, nose pain, photophobia, tearing, throat pain, throat swelling, voice changes, others Respiratory: reports: cough, shortness of breath; denies: hemoptysis, orthopnea, SOB at rest, SOB with excertion, stridor, wheezing, others Cardiovascular: denies: chest pain, dizzy spells, diaphoresis, Dyspnea on exertion, edema, irregular heart beat, left arm pain, lightheadedness, palpitations, PND, syncope, others Gastrointestinal: denies: abdomen distended, abdominal pain, blood streaked bowels, constipated, diarrhea, dysphagia, difficulty swallowing, hematemesis, melena, nausea, poor appetite, poor fluid intake, rectal bleeding, rectal pain, vomiting, others Genitourinary: denies: abnormal vagina bleeding, burning, dyspareunia, dysuria, flank pain, frequency, hematuria, incontinence, pain, , vagina discharge, urgency, others Neurological: denies: dizziness, fainting, headache, left sided numbness, left sided weakness, numbness, paresthesia, pre-existing deficit, right sided numbness, right sided weakness, seizure, speech problems, tingling, tremors, wea kness, others Musculoskeletal: denies: back pain, gout, joint pain, joint swelling, muscle pain, muscle stiffness, neck pain, others Integumetry: denies: bruises, change in color, change in hair/nails, dryness, l aceration, lesions, lumps, rash, wounds, others Allergic/Immunocompromised: denies: Difficulty Healing, Frequent Infections, Hives, Itching, others Hematologic/Lymphatic: denies: anemia, blood clots, easy bleeding, easy bruising, swollen glands, others Endocrine: denies: excessive hunger, excessive sweating, excessive thirst, excessive urination, flushing, intolerance to cold, intolerance to heat, unexplained weight gain, unexplained weight loss, others Psychiatric: denies: anxiety, bipolar disorder, depression, hopeless, panic disorder, schizophrenia, sleepless, suicidal, others All Other Systems: Reviewed and Negative Physical Exam General Appearance: Moderate Distress, Normal HEENT: Normal ENT Inspection, Pharynx Normal, TMs Normal Neck: Full Range of Motion, Non-Tender, Normal, Normal Inspection Respiratory: Chest Non-Tender, Lungs Clear, No Accessory Muscle Use, No Respiratory Distress, Normal Breath Sounds Cardiovascular: Irregular, No Edema, No JVD, No Murmur, No Gallop, Normal Peripheral Pulses, Tachycardia Breast Exam: Deferred Gastrointestinal: No Organomegaly, Non Tender, No Pulsatile Mass, Normal Bowel Sounds, Soft Genitalia: Deferred Pelvic: Deferred Rectal: Deferred Extremities: No calf tenderness, Normal capillary refill, Normal inspection, Normal range of motion, Non-tender, No pedal edema Musculoskeletal : Apperance: Normal Neurologic: Alert, fitness and wellness coordinator II-XII nml as Tested, No Motor Deficits, Normal Affect, Normal Mood, No Sensory Deficits Cerebellar Function: Normal Reflexes: Normal Skin: Dry, Normal Color, Warm Peripheral Pulses: 3+ Radial (R), 3+ Radial (L) Lymphatic: No Adenopathy Was a procedure done? Was a procedure done?: No EKG EKG : Pulse Rate (adult): 119 [place]: Normal Cardiac Rhythm: Afib Block: None Hypertrophy: None ST: Normal Differential Dx Considerations may include: Atrial fibrillation Electrolyte imbalance X-Ray, Labs, Meds, VS Vital Signs Date Time Temp Pulse Resp B/P (MAP) Pulse Ox O2 Delivery O2 Flow Rate FiO2 02/13/25 14:44 119 Lab Test 02/13/25 14:15 Range/Units White Blood Count 7.7 4.4-10.8 10^3/uL Red Blood Count 5.62 H 4.0-5.20 10^6/uL Hemoglobin 17.5 H 12.2-16.2 g/dL Hematocrit 51.5 H 36.0-46.0 % Mean Corpuscular Volume 91.7 80.0-100.0 fL Mean Corpuscular Hemoglobin 31.2 28.0-32.0 pg Mean Corpuscular Hemoglobin Concent 34.0 32.0-36.0 g/dL Red Cell Distribution Width 13.7 11.8-14.3 % Platelet Count 211 140-450 10^3/uL Mean Platelet Volume 8.7 6.9-10.8 fL Neutrophils (%) (Auto) 75.9 37.0-80.0 % Lymphocytes (%) (Auto) 13.5 10.0-50.0 % Monocytes (%) (Auto) 9.4 0.0-12.0 % Eosinophils (%) (Auto) 0.4 0.0-7.0 % Basophils (%) (Auto) 0.8 0.0-2.0 % Neutrophils # (Auto) 5.8 1.6-8.6 10 ^3/uL Lymphocytes # (Auto) 1.0 0.4-5.4 10 ^3/uL Monocytes # (Auto) 0.7 0-1.3 10 ^3/uL Eosinophils # (Auto) 0 0-0.8 10 ^3/uL Basophils # (Auto) 0.1 0-0.2 10 ^3/uL Nucleated Red Blood Cells 0.1 % Sodium Level 141 136-145 mmol/L Potassium Level 4.1 3.5-5.1 mmol/L Chloride Level 105 98-107 mmol/L Carbon Dioxide Level 27 20-31 mmol/L Anion Gap 9 5-15 Blood Urea Nitrogen 28 H 9-23 mg/dL Creatinine 1.36 H 0.550-1.02 mg/dL Glomerular Filtration Rate Calc 42 >90 mL/min BUN/Creatinine Ratio 20.6 H 10.0-20.0 Serum Glucose 103 74-106 mg/dL Calcium Level 10.9 H 8.7-10.4 mg/dL Troponin I High Sensitivity 7 </=34 ng/L Patient alert. Complaining of cough shortness a breath. EKG reviewed does show atrial fibrillation. Cardiac marker within normal limits. Kidney function elevated. Possible dehydration. WBC within normal limits. Hemoglobin elevated. Started amiodarone. Explained to the patient. Continue monitoring. Time of 1ST Reevaluation: 14:24 Reevaluation 1ST: Unchanged Patient Education/Counseling: Diagnosis, Treatment, Need For Follow Up Family Education/Counseling: No Family Present SEPSIS Sepsis Screen Physician Orders Covid19 Antigen Kathy (02/13/25 ) Chest Portable (02/13/25 13:58) Urinalysis (02/13/25 13:58) Troponin-I Hs (02/13/25 14:58) Troponin-I Hs (02/13/25 16:58) Vital Signs Date Time Temp Pulse Resp B/P (MAP) Pulse Ox O2 Delivery O2 Flow Rate FiO2 02/13/25 14:44 119 Laboratory Tests Test 02/13/25 14:15 White Blood Count 7.7 10^3/uL (4.4-10.8) Departure 1 Departure Time of Disposition: 14:47 Impression: Primary Impression: Atrial fibrillation with RVR Disposition: 09 ADMITTED INPATIENT Admit to: Med Surg Condition: Guarded Critical Care Note Critical Care Time?: Yes (90 min-critical care time only) Critical care comment: Atrial fibrillation started amiodarone Stability Stability form required: No Heart Score Heart Score: Heart Score Response (Comments) Value History Slightly Suspicious 0 EKG Normal 0 Age >65 2 Risk Factors >3 or Hx ASHD 2 Troponin Normal limit 0 Total 4 I personally scribed for BRYANT GALVEZ MD ([email or web address]) on 02/13/25 at 14:21. Electronically submitted by Checo Page ([email or web address]). I personally scribed for BRYANT GALVEZ MD ([email or web address]) on 02/13/25 at 14:44. Electronically submitted by Checo Page ([email or web address]). BRYANT GALVEZ MD Feb 13, 2025 14:21
[2025-02-13 14:31] LABS: Chloride 105 mmol/L (98-107); Potassium 4.1 mmol/L (3.5-5.1); Sodium 141 mmol/L (136-145)
[2025-02-13 14:32] LABS: Anion Gap 9 (5-15); Carbon Dioxide 27 mmol/L (20-31)
[2025-02-13 14:37] LABS: BUN/Creatinine Ratio 20.6 (10.0-20.0); Glucose 103 mg/dL (74-106)
[2025-02-13 14:40] LABS: Blood Urea Nitrogen 28 mg/dL (9-23); Calcium 10.9 mg/dL (8.7-10.4)
--- NOTE | 2025-02-13 14:41 | DVH ---
CHEST RADIOGRAPH Indication: sob Technique: Single frontal view of the chest was obtained COMPARISON: XY CHEST PORTABLE on DOS: 10/27/24, CHEST PORTABLE on DOS: 07/21/22, CXRP on DOS: 07/21/22 FINDINGS: Lines and Tubes: None Lungs: Clear Pleura: Slight blunting left costophrenic angle. Small left pleural effusion can not be excluded No pneumothorax. Cardiomediastinal contours: Mild cardiomegaly Bones: Unremarkable IMPRESSION: 1. Mild cardiomegaly Possible small left pleural effusion. Lateral view recommended Appearance of the chest appears unchanged from 10/27/2024
--- NOTE | 2025-02-13 14:46 | ECG ---
[facility] Test Date: 2025-02-13 Test Time: 14:41:22 Pat Name: DANIELLE COUGHLIN Department: ER Room: Gender: F Stress Test Technician: [place] : 1955 Requested By: BRYANT GALVEZ Order Number: [id number] Reading MD: Measurements Intervals [place] Rate: 119 P: 0 UT: 0 QRS: -60 QRSD: 91 T: 32 QT: 334 QTc: 470 Interpretive Statements Atrial fibrillation Left anterior fascicular block Anterior infarct, old Baseline wander in lead(s) V1 Please click the below link to view image of tracing.
[2025-02-13] MEDS: AMIODARONE BOLUS KIT 100 ML IV ONE (15:00)
[2025-02-13 15:25] LABS: COVID19 ANTIGEN SOFIA FIA POSITIVE (NEGATIVE)
[2025-02-13 16:00] VITALS: PULSE 113; RESP 16; O2SAT 95
[2025-02-13] MEDS: AMIODARONE 360mg/200mL PREMIX 200 ML IV ONE (16:25)
[2025-02-13 19:24] VITALS: PULSE 80; RESP 18; O2SAT 92
[2025-02-13 19:51] LABS: Urine Protein, UAD 1+ (Negative)
[2025-02-13] MEDS ORDERED: ACETAMINOPHEN 325 MG TAB PO PRN (20:00)
[2025-02-13] MEDS ORDERED: HYDROcodone-ACET 5/325MG TAB PO PRN (20:00)
[2025-02-13] MEDS ORDERED: DOCUSATE SOD 100 MG CAP PO PRN (20:00)
[2025-02-13] MEDS ORDERED: ONDANSETRON HCL 4 MG/2 ML VIAL IV PRN (20:00)
--- NOTE | 2025-02-13 20:02 | DVHHP2 ---
Admitting Diagnosis: Shortness of breaths and cough History of Present Illness 69-year-old female with PMHx A-Fib presents with a chief complaint of SOB and cough x onset February 09, 2025. Patient states that she took two COVID tests at home and they were positive. Patient states that she called her doctors office and was referred to the ER. Patient is not actively coughing, and is able to speak in full, complete sentences. 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 History Family History Family History: Family hx of DM, Family hx of Cancer Social History Smoker: Quit Greater Than 1 Year Alcohol: Denies ETOH Use Drugs: Denies Drug Use Lives In: Home Patient Family History: Cerebrovascular accident (CVA) G8 MOTHER Allergies: Coded Allergies: Morphine (Verified Allergy, Unknown, 05/02/19) Home Meds Active Scripts Peg 1416-Rth-Faz Bicarb-Sod Ch (Golytely) [place], 1 APPLIC OR QID, #473 ML Prov:SAFIA BOWLING MD 11/05/24 Amoxicillin & Pot Clavulanate (AUGMENTIN TABLET) 875 Mg Tb, 875 MG PO BID for 5 Days, #10 TAB Prov:DOROTHEA TRIVEDI 10/28/24 Dicyclomine Hcl (BENTYL CAPSULE) 10 Mg Cp, 1 CAP PO BID for 15 Days, #30 CAP 11 Refills Prov:DOROTHEA TRIVEDI 10/28/24 Ondansetron Odt 4MG Tab (ZOFRAN PO) 4 Mg Tb, 4 MG PO PRN for 10 Days, #20 TAB ODT TAB-DISSOLVE IN MOUTH, THEN SWALLOW Prov:DOROTHEA TRIVEDI 10/28/24 Sucralfate (CARAFATE SUSP) 1 Gm/10 Ml Ss, 10 ML PO BID for 30 Days, #600 ML 1 Refill Prov:DOROTHEA TRIVEDI 10/28/24 Prednisone (Prednisone) 20 Mg Tab, 60 MG PO DAILY, #21 MG Prov:MADI MILLER 07/02/24 Tobramycin Sulfate (Tobrex) [address], 2 DROP OP QID, #5 ML Prov:MADI MILLER 07/02/24 Trazodone Hcl (Trazodone Hcl) 100 Mg Tab, 1 TAB PO QPM PRN, #30 TAB 0 Refills Prov:RUDDY MURRAY MD 06/02/24 Meclizine HCl (Meclizine 25) 25 Mg Tab, 25 MG PO QPM for 14 Days, #14 TAB Prov:RUDDY MURRAY MD 06/02/24 Losartan Potassium (Losartan Potassium) 25 Mg Tab, 12.5 MG PO QPM for 30 Days, #15 TAB 1 Refill Prov:RUDDY MURRAY MD 06/02/24 Omeprazole Magnesium (Omeprazole) 20 Mg Tab, 20 MG PO DAILY, #30 TAB Prov:THA SANDS 10/15/23 Albuterol Sulfate (Albuterol Sulfate Hfa) 108 Mcg/Act Aer, 108 MCG IN TID, #1 AER Prov:THA SANDS 10/15/23 Reported Medications Warfarin Sodium (Warfarin Sodium) 5 Mg Tab, 2 TAB PO QPM, MG 2 TABLETS (10 MG TOTAL) BY MOUTH AT NIGHT FOR CHRONIC ATRIAL FIBRILLATION 06/01/24 Pravastatin Sodium (PRAVACHOL TABLET) 20 Mg Tb, 10 MG PO DAILY, TAB 06/01/24 Diltiazem Hcl (Dilt-Xr) 180 Mg Cap, 180 MG PO BID, CAP 06/01/24 Fluoxetine HCl (Pmdd) (Fluoxetine HCl) 10 Mg Tab, 30 MG PO DAILY, TAB 06/01/24 Vital Signs Vital Signs Date Time Temp Pulse Resp B/P (MAP) Pulse Ox O2 Delivery O2 Flow Rate FiO2 02/13/25 19:24 97.4 80 18 132/86 (101) 92 97.4 02/13/25 19:24 Room Air* 0 21 Physical Exam gen: 69 y.o. woman, lying in bed. mild discomfort heent: AT/NC Heart: irregularly irregular Lung: coarse breath abd: soft, non-tender, non-distended Msk: no edema or cyanosis Neuro: Aox3, no focal deficit Results Labs Test 02/13/25 19:18 02/13/25 15:05 02/13/25 14:30 02/13/25 14:15 Range/Units Urine Color Yellow Yellow Urine Clarity Turbid H Clear Urine pH 5.5 5.0-9.0 Urine Specific [place] 1.035 1.001-1.035 Urine Protein 1+ H Negative Urine Ketones Negative Negative Urine Blood Negative Negative /uL Urine Nitrite Negative Negative Urine Bilirubin Negative Negative Urine Urobilinogen Normal Negative mg/dL Urine Leukocyte Esterase Trace Negative /uL Urine RBC 2 0 - 4 /hpf Urine Microscopic WBC 9 H 0-5 /HPF Urine Squamous Epithelial Cells Few <5 /hpf Urine Bacteria None seen None Seen /hpf Urine Mucus Few None Seen Urine Glucose Normal Normal mg/dL Troponin I High Sensitivity 7 </=34 ng/L SARS-CoV-2 Antigen (Rapid) Positive NEGATIVE White Blood Count 7.7 4.4-10.8 10^3/uL Red Blood Count 5.62 H 4.0-5.20 10^6/uL Hemoglobin 17.5 H 12.2-16.2 g/dL Hematocrit 51.5 H 36.0-46.0 % Mean Corpuscular Volume 91.7 80.0-100.0 fL Mean Corpuscular Hemoglobin 31.2 28.0-32.0 pg Mean Corpuscular Hemoglobin Concent 34.0 32.0-36.0 g/dL Red Cell Distribution Width 13.7 11.8-14.3 % Platelet Count 211 140-450 10^3/uL Mean Platelet Volume 8.7 6.9-10.8 fL Neutrophils (%) (Auto) 75.9 37.0-80.0 % Lymphocytes (%) (Auto) 13.5 10.0-50.0 % Monocytes (%) (Auto) 9.4 0.0-12.0 % Eosinophils (%) (Auto) 0.4 0.0-7.0 % Basophils (%) (Auto) 0.8 0.0-2.0 % Neutrophils # (Auto) 5.8 1.6-8.6 10 ^3/uL Lymphocytes # (Auto) 1.0 0.4-5.4 10 ^3/uL Monocytes # (Auto) 0.7 0-1.3 10 ^3/uL Eosinophils # (Auto) 0 0-0.8 10 ^3/uL Basophils # (Auto) 0.1 0-0.2 10 ^3/uL Nucleated Red Blood Cells 0.1 % Sodium Level 141 136-145 mmol/L Potassium Level 4.1 3.5-5.1 mmol/L Chloride Level 105 98-107 mmol/L Carbon Dioxide Level 27 20-31 mmol/L Anion Gap 9 5-15 Blood Urea Nitrogen 28 H 9-23 mg/dL Creatinine 1.36 H 0.550-1.02 mg/dL Glomerular Filtration Rate Calc 42 >90 mL/min BUN/Creatinine Ratio 20.6 H 10.0-20.0 Serum Glucose 103 74-106 mg/dL Calcium Level 10.9 H 8.7-10.4 mg/dL Primary Diagnosis covid-19 infection afib with rvr Plan COVID test positive Patient is currently on hypoxic Start dexamethasone 6 mg daily for up to 10 days AFib with a RVR on amiodarone drip. Admit to [facility]ONNY Resume Eliquis 5 mg b.i.d. Resume home medication Check echo of the heart Check TSH Cardiac diet Full code PPI for GI prophylaxis Plan discussed with: Patient Problems List: (1) COVID-19 (2) Atrial fibrillation with RVR Status: Acute Date of Service: Feb 13, 2025 Billing Provider: OTTO QUACH MD Common Visit Codes: [id number] INP/OBS CARE (HIGH) OTTO QUACH MD Feb 13, 2025 20:02
[2025-02-13] MEDS: ACETAMINOPHEN 500 MG TAB or CAP PO ONE (20:26)
[2025-02-13] MEDS ORDERED: OMEP20TA PO (21:25)
[2025-02-13] MEDS ORDERED: PANT1INJ3 IV (21:25)
[2025-02-13] MEDS ORDERED: GABA-1250 PO (21:27)
[2025-02-13] MEDS ORDERED: TRAZ-227 PO (21:27)
[2025-02-13] MEDS ORDERED: SERT-206 PO (21:27)
[2025-02-13] MEDS ORDERED: METO25TA93 PO (21:27)
[2025-02-13 22:00] VITALS: BP_SYST 132; BP_SYST 160; BP_DIAS 115; BP_DIAS 87; PULSE 83; PULSE 88; RESP 14; RESP 16; TEMP 97.8; O2SAT 92; O2SAT 94; O2SAT 95
[2025-02-13] MEDS: SODIUM CHLOR 0.9% PF (SALINE LOCK) 10ML VIAL/SYR IV SCH (22:00)
[2025-02-13 23:00] VITALS: BP 130/90; PULSE 92; RESP 15; O2SAT 94
[2025-02-13] MEDS: APIXABAN 5 MG TAB PO SCH (23:06)
[2025-02-14] VITALS (9 sets, daily range): BP systolic 120–172; BP diastolic 72–108; PULSE 78–103; RESP 13–21; TEMP 97.7–98.2; O2SAT 96–100
[2025-02-14 02:27] LABS: Hematocrit 50.1 % (36.0-46.0); Hemoglobin 16.7 g/dL (12.2-16.2); Mean Corpuscular Hemoglobin 30.9 pg (28.0-32.0); Mean Corpuscular Volume 92.5 fL (80.0-100.0); Nucleated Red Blood Cells % 0.1 %
[2025-02-14 02:45] LABS: Alanine Aminotransferase 10 U/L (7-40); Albumin 4.2 g/dL (3.2-4.8); Alkaline Phosphatase 59 U/L (46-116); Anion Gap 6 (5-15); BUN/Creatinine Ratio 27.6 (10.0-20.0); Bilirubin, Total 0.8 mg/dL (0.2-1.0); Calcium 9.3 mg/dL (8.7-10.4); Carbon Dioxide 27 mmol/L (20-31); Glucose 85 mg/dL (74-106); Potassium 3.6 mmol/L (3.5-5.1); Sodium 141 mmol/L (136-145); Total Protein 7.2 g/dL (5.7-8.2)
[2025-02-14 02:49] LABS: Blood Urea Nitrogen 27 mg/dL (9-23); Chloride 108 mmol/L (98-107)
[2025-02-14] MEDS: AMIODARONE HCL 200 MG TAB PO SCH (09:43)
--- NOTE | 2025-02-14 12:21 | DVHSR ---
APPROVED REPORT EXAM: LIMITED Two-dimensional and M-mode echocardiogram with Doppler and color Doppler. Blood Pressure: 134/84 mmHg INDICATION Atrial Fibrillation W/ RVR RISK FACTORS Obesity: Height: 5' 9", Weight: 250 DIMENSIONS LVDd5.0 (3.8-5.7cm)LA (2D)5.0 (1.9-4.0cm)Aortic Root3.3 (2.0-3.7cm) LVDs3.5 (2.5-4.0cm)LA (MM) (1.9-4.0cm)Aortic Cusp Exc1.3 (1.5-2.0cm) EF (%) 55.0 (55-70%)Rt. Atrium4.7 (1.9-4.0cm)Asc. Aorta cm IVSd1.7 (0.7-1.1cm)RV (D) (1.8-2.4cm) PWd1.4 (0.7-1.1cm) Mitral Valve MitralMitral Stenosis E wave1.30m/sMV Mean GR.mmHg E/A ratio0.02D MVAcm2 Aortic Valve Aortic ValveAortic Stenosis V10.70m/[place] Mean GR.7mmHg V21.80m/[place] Peak GR.14mmHg AI P 1/2 Ymoi084.98ms Pulmonic Valve V20.90m/s Tricuspid Valve TR Velocity2.50m/s [id number] Other Information Quality : Technically LimitedRhythm : Technically limited study due to body habitus. Conclusion lvef 50% moderate LVH dysrhthmia noted marked biatrial enlargement smal to moderate l pericardial effusion noted, no HD compromise
--- NOTE | 2025-02-14 13:50 | DVHDS2 ---
Discharge Summary Date of Admission Feb 13, 2025 at 19:53 Date of Discharge: Feb 14, 2025 Labs/Diagnostic Data: Laboratory Results Test 02/14/25 02:20 02/13/25 19:18 02/13/25 15:05 02/13/25 14:30 White Blood Count 6.1 10^3/uL (4.4-10.8) Red Blood Count 5.42 10^6/uL (4.0-5.20) Hemoglobin 16.7 g/dL (12.2-16.2) Hematocrit 50.1 % (36.0-46.0) Mean Corpuscular Volume 92.5 fL (80.0-100.0) Mean Corpuscular Hemoglobin 30.9 pg (28.0-32.0) Mean Corpuscular Hemoglobin Concent 33.4 g/dL (32.0-36.0) Red Cell Distribution Width 13.4 % (11.8-14.3) Platelet Count 162 10^3/uL (140-450) Mean Platelet Volume 8.5 fL (6.9-10.8) Neutrophils (%) (Auto) 65.3 % (37.0-80.0) Lymphocytes (%) (Auto) 16.5 % (10.0-50.0) Monocytes (%) (Auto) 15.3 % (0.0-12.0) Eosinophils (%) (Auto) 2.1 % (0.0-7.0) Basophils (%) (Auto) 0.8 % (0.0-2.0) Neutrophils # (Auto) 4.0 10 ^3/uL (1.6-8.6) Lymphocytes # (Auto) 1.0 10 ^3/uL (0.4-5.4) Monocytes # (Auto) 0.9 10 ^3/uL (0-1.3) Eosinophils # (Auto) 0.1 10 ^3/uL (0-0.8) Basophils # (Auto) 0 10 ^3/uL (0-0.2) Nucleated Red Blood Cells 0.1 % Sodium Level 141 mmol/L (136-145) Potassium Level 3.6 mmol/L (3.5-5.1) Chloride Level 108 mmol/L (98-107) Carbon Dioxide Level 27 mmol/L (20-31) Anion Gap 6 (5-15) Blood Urea Nitrogen 27 mg/dL (9-23) Creatinine 0.98 mg/dL (0.550-1.02) Glomerular Filtration Rate Calc 63 mL/min (>90) BUN/Creatinine Ratio 27.6 (10.0-20.0) Serum Glucose 85 mg/dL (74-106) Calcium Level 9.3 mg/dL (8.7-10.4) Total Bilirubin 0.8 mg/dL (0.2-1.0) Aspartate Amino Transferase (AST) 16 U/L (13-40) Alanine Aminotransferase (ALT) 10 U/L (7-40) Alkaline Phosphatase 59 U/L (46-116) Total Protein 7.2 g/dL (5.7-8.2) Albumin 4.2 g/dL (3.2-4.8) Urine Color Yellow (Yellow) Urine Clarity Turbid (Clear) Urine pH 5.5 (5.0-9.0) Urine Specific [place] 1.035 (1.001-1.035) Urine Protein 1+ (Negative) Urine Ketones Negative (Negative) Urine Blood Negative /uL (Negative) Urine Nitrite Negative (Negative) Urine Bilirubin Negative (Negative) Urine Urobilinogen Normal mg/dL (Negative) Urine Leukocyte Esterase Trace /uL (Negative) Urine RBC 2 /hpf (0 - 4) Urine Microscopic WBC 9 /HPF (0-5) Urine Squamous Epithelial Cells Few /hpf (<5) Urine Bacteria None seen /hpf (None Seen) Urine Mucus Few (None Seen) Urine Glucose Normal mg/dL (Normal) Troponin I High Sensitivity 7 ng/L (</=34) Thyroid Stimulating Hormone (TSH) 3.37 uIU/mL (0.55-4.78) SARS-CoV-2 Antigen (Rapid) Positive (NEGATIVE) Other Laboratory Tests 02/14/25 02:20 Brief Hx & Hospital Course: 69-year-old female with PMHx A-Fib presents with a chief complaint of SOB and cough x onset February 09, 2025. Patient states that she took two COVID tests at home and they were positive. Patient states that she called her doctors office and was referred to the ER. Patient is not actively coughing, and is able to speak in full, complete sentences. 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 Family History Family History: Family hx of DM, Family hx of Cancer Social History Smoker: Quit Greater Than 1 Year Alcohol: Denies ETOH Use Drugs: Denies Drug Use Lives In: Home covid-19 infection afib with rvr coughing pt left AMA Condition at Discharge: Fair Final Diagnosis/Problems List see above Discharge Disposition: AMA Discharge Instruct/Medications Scheduled Albuterol Sulfate (Albuterol Sulfate Hfa), 108 MCG IN TID Amoxicillin & Pot Clavulanate (Augmentin Tablet), 875 MG PO BID Dicyclomine Hcl (Bentyl Capsule), 1 CAP PO BID Diltiazem Hcl (Dilt-Xr), 180 MG PO BID, (Reported) Fluoxetine HCl (Pmdd) (Fluoxetine HCl), 30 MG PO DAILY, (Reported) Losartan Potassium (Losartan Potassium), 12.5 MG PO QPM Meclizine HCl (Meclizine 25), 25 MG PO QPM Metoprolol Succinate (Metoprolol Succinate Er), 25 MG PO DAILY, (Reported) Ondansetron Odt 4MG Tab (Zofran Po), 4 MG PO PRN Peg 7192-[id number] Bicarb-Sod Ch (Golytely), 1 APPLIC OR QID Pravastatin Sodium (Pravachol Tablet), 10 MG PO DAILY, (Reported) Prednisone (Prednisone), 60 MG PO DAILY Sertraline Hcl (Sertraline Hcl), 50 MG PO DAILY, (Reported) Sucralfate (Carafate Susp), 10 ML PO BID Tobramycin Sulfate (Tobrex), 2 DROP OP QID Warfarin Sodium (Warfarin Sodium), 2 TAB PO QPM, (Reported) Scheduled PRN Trazodone Hcl (Trazodone Hcl), 1 TAB PO QPM PRN Miscellaneous Medications Gabapentin (Gabapentin), 300 MG PO, (Reported) Omeprazole (Gnp Omeprazole), 40 MG PO, (Reported) Pantoprazole Sodium (Pantoprazole Sodium), 40 MG IV, (Reported) Trazodone Hcl (Trazodone Hcl), 50 MG PO, (Reported) Discharge Statement: "Patient was advised to return to the ER or call 911 if any headaches, dizziness, shortness of breath, chest pain, abdominal pain, bleeding, fevers, or worsening of medical condition. Patient was counseled about treatment plan, medications, possible side effects, patientverbalized understanding. All questions were answered to the best of my ability. This discharge took greater then 30 minutes in planning, reviewing documentation, counseling the patient, and discussing with other team members." ASSESSMENT ASSESSMENT Assessment Date of Service: Feb 14, 2025 Billing Provider: YAMEL GAMA DO Common Visit Codes: [id number]/[id number] DISCH DAY >30min YAMEL GAMA DO Feb 14, 2025 13:50
== END 2025-02-15 12:25 | disposition left against medical advice (07) | DRG 179 ==
LOC: ER 13:37 → OVERFLOW 19:53
PROVIDERS: ADMIT Nurse Practitioner Acute Care; ATTEND Nurse Practitioner Acute Care
DX: U07.1 COVID-19 (principal); I48.91 Unspecified atrial fibrillation; K21.9 Gastro-esophageal reflux disease without esophagitis; Z53.29 Procedure and treatment not carried out because of patient's decision for other reasons; Z90.710 Acquired absence of both cervix and uterus; Z87.891 Personal history of nicotine dependence; Z88.5 Allergy status to narcotic agent; Z83.3 Family history of diabetes mellitus; Z80.8 Family history of malignant neoplasm of other organs or systems; Z82.3 Family history of stroke; Z79.01 Long term (current) use of anticoagulants; Z79.899 Other long term (current) drug therapy
CPT/HCPCS: 36415; 71045; 80048; 80053; 81001; 84443; 84484; 85025; 87426; 93005; 93306; 99291; 99292; G0378

== ENCOUNTER 2025-03-31 08:10 | Emergency (ER) | payer MEDICARE, OTHER ==
[~2025-03-31] VITALS: Ht 175.3 cm; Wt 117.0 kg
[~2025-03-31 08:10] MED LIST changes: +GABA-1250 PO; +METO25TA93 PO; -OMEP-434 PO; +OMEP20TA PO; +PANT1INJ3 IV; +SERT-206 PO; +TRAZ-227 PO
[2025-03-31 08:30] VITALS: PULSE 89; RESP 19; O2SAT 94
--- NOTE | 2025-03-31 09:17 | ED.PDOC ---
HPI (NEURO) HPI Comments This is a 69 year old female presenting to the ED with chief complaint of dizziness. Patient reports that she has been experiencing dizziness since this morning, feeling like the room is spinning around her. Patient notes that she also has been leaning more to the left since onset. Patient states she has history of hearing loss to the left ear. Patient denies any numbness, weakness, headache, chest pain, SOB, fever, or chills. Chief Complaint: Dizziness Time Seen by MD: 09:15 Primary Care Provider: JANE Reviewed Notes: Nurses Notes, Medications, Allergies Information Source: Patient Mode of Arrival: Ambulatory Severity: Moderate Dizziness/Weakness Severity: Unable to do activities Timing: Hours Duration: Since onset Prehospital treatment: None Past Medical History PAST MEDICAL HISTORY: AFIB, Cancer, GERD, High Lipids Surgical History: Hysterectomy FITNESS MANAGEMENT DIRECTOR History: No Pertinent FITNESS MANAGEMENT DIRECTOR History Family History Family History: Family hx of DM, Family hx of Cancer Social History Smoker: Quit Greater Than 1 Year Alcohol: Denies ETOH Use Drugs: Denies Drug Use Lives In: Home Constitutional: denies: chills, diaphoresis, fatigue, fever, malaise, sweats, weakness, others EENTM: denies: blurred vision, double vision, ear bleeding, ear discharge, ear drainage, ear pain, ear ringing, eye pain, eye redness, hearing loss, mouth pain, mouth swelling, nasal discharge, nose bleeding, nose congestion, nose pain, photophobia, tearing, throat pain, throat swelling, voice changes, others Respiratory: denies: cough, hemoptysis, orthopnea, SOB at rest, shortness of breath, SOB with excertion, stridor, wheezing, others Cardiovascular: denies: chest pain, dizzy spells, diaphoresis, Dyspnea on exertion, edema, irregular heart beat, left arm pain, lightheadedness, palpitations, PND, syncope, others Gastrointestinal: denies: abdomen distended, abdominal pain, blood streaked bowels, constipated, diarrhea, dysphagia, difficulty swallowing, hematemesis, melena, nausea, poor appetite, poor fluid intake, rectal bleeding, rectal pain, vomiting, others Genitourinary: denies: abnormal vagina bleeding, burning, dyspareunia, dysuria, flank pain, frequency, hematuria, incontinence, pain, , vagina discharge, urgency, others Neurological: reports: dizziness; denies: fainting, headache, left sided numbness, left sided weakness, numbness, paresthesia, pre-existing deficit, right sided numbness, right sided weakness, seizure, speech problems, tingling, tremors, weakness, others Musculoskeletal: denies: back pain, gout, joint pain, joint swelling, muscle pain, muscle stiffness, neck pain, others Integumetry: denies: bruises, change in color, change in hair/nails, dryness, laceration, lesions, lumps, rash, wounds, others Allergic/Immunocompromised: denies: Difficulty Healing, Frequent Infections, Hives, Itching, others Hematologic/Lymphatic: denies: anemia, blood clots, easy bleeding, easy bruising, swollen glands, others Endocrine: denies: excessive hunger, excessive sweating, excessive thirst, excessive urination, flushing, intolerance to cold, intolerance to heat, unexplained weight gain, unexplained weight loss, others Psychiatric: denies: anxiety, bipolar disorder, depression, hopeless, panic disorder, schizophrenia, sleepless, suicidal, others All Other Systems: Reviewed and Negative Physical Exam General Appearance: Mild Distress, Obese HEENT: Normal ENT Inspection, PERRL/EOMI, Other (Patient is deaf from the left ear and has a vertigo) Neck: Full Range of Motion, Non-Tender, Normal, Normal Inspection Respiratory: Chest Non-Tender, Lungs Clear, No Accessory Muscle Use, No Respiratory Distress, Normal Breath Sounds Cardiovascular: No Edema, No JVD, No Murmur, No Gallop, Normal Peripheral Pulses, Regular Rate/Rhythm Breast Exam: Deferred Gastrointestinal: No Organomegaly, Non Tender, No Pulsatile Mass, Normal Bowel Sounds, Soft Genitalia: Deferred Pelvic: Deferred Rectal: Deferred Extremities: No calf tenderness, Normal capillary refill, Normal inspection, Normal range of motion, Non-tender, No pedal edema Neurologic: Alert, patient flow coordinator II-XII nml as Tested, No Motor Deficits, Normal Affect, Normal Mood, No Sensory Deficits Cerebellar Function: Normal Reflexes: Normal Skin: Dry, Normal Color, Warm Peripheral Pulses: 1+ carotid (R), 1+ carotid (L) Lymphatic: No Adenopathy EKG EKG : Pulse Rate (adult): 94 [place]: LAD Cardiac Rhythm: Afib Block: RBBB ST: Old, Ant, Infarct Was a procedure done? Was a procedure done?: No Differential Diagnosis (SZ) Seizure: N/A CVA: Other General Weakness: Labyrinthitis, Vertigo: peripheral Headache: N/A X-Ray, Labs, Meds, VS Vital Signs Date Time Temp Pulse Resp B/P (MAP) Pulse Ox O2 Delivery O2 Flow Rate FiO2 03/31/25 15:41 74 18 137/96 (110) 97 03/31/25 14:24 98.4 72 18 162/100 (120) 97 98.4 03/31/25 11:34 84 18 159/81 (107) 99 03/31/25 11:32 94 175/114 03/31/25 10:46 175/114 03/31/25 10:10 94 03/31/25 10:06 181/116 03/31/25 09:33 88 16 181/116 (137) 96 03/31/25 08:30 89 19 94 Room Air* 0 21 03/31/25 08:22 94 03/31/25 08:13 97.8 111 18 152/108 97 97.8 Lab Test 03/31/25 09:49 Range/Units POC Glucose 90 70-106 mg/dl Current Medications Medications (Trade) Dose Ordered Sig/Rosie Route Start Time Stop Time Status Last Admin Meclizine HCl (Antivert Tablet) 50 mg ONCE ONCE PO 03/31/25 09:15 03/31/25 09:16 DC 03/31/25 09:37 Clonidine HCl (Catapres Tablet) 0.2 mg ONCE ONCE PO 03/31/25 10:00 03/31/25 10:01 DC 03/31/25 10:06 Metoprolol Succinate (Toprol Xl) 50 mg ONCE ONCE PO 03/31/25 11:15 03/31/25 11:16 DC 03/31/25 11:32 X-Ray, Labs, Meds, VS Comment Patient with a vertigo and left ear deaf came to the emergency department Patient has been swimming yesterday the ears are clear Patient was given Antivert 50 mg and observed Time of 1ST Reevaluation: 10:07 Reevaluation 1ST: Improved Time of 2ND Reevaluation: 10:30 Reevaluation 2ND: Improved Consultation: PCP Patient Education/Counseling: Diagnosis, Treatment, Prognosis, Need For Follow Up Family Education/Counseling: Diagnosis, Treatment, Prognosis, Need For Follow Up Departure 1 Departure Time of Disposition: 10:12 Impression: Primary Impression: Positional vertigo of left ear Additional Impressions: Deafness in left ear Uncontrolled hypertension Controlled atrial fibrillation Disposition: 01 HOME / SELF CARE / HOMELESS Condition: Fair Additional Instructions: Follow up with your PCP e-Prescriptions Meclizine HCl (Antivert) 25 Mg Chw 50 MG PO TID for 30 Days, #30 TAB.CHEW Prov: SAMI SWAIN MD 03/31/25 Discharged With: Self Critical Care Note Critical Care Time?: No Stability Stability form required: No Heart Score Heart Score: Heart Score Response (Comments) Value History N/A 0 EKG Repolarization Disturb 1 Age >65 2 Risk Factors >3 or Hx ASHD 2 Troponin N/A 0 Total 5 I personally scribed for SAMI SWAIN MD ([email or web address]) on 03/31/25 at 09:17. Electronically submitted by Nilay Davila ([email or web address]). SAMI SWAIN MD Mar 31, 2025 09:17
[2025-03-31] MEDS: MECLIZINE HCL 25 MG TAB PO ONE (09:37)
[2025-03-31] MEDS ORDERED: MECL25CH85 PO (10:17)
[2025-03-31] MEDS: METOPROLOL SUCCINATE XL 50 MG TAB PO ONE (11:32)
[2025-03-31 14:24] VITALS: TEMP 98.4
[2025-03-31 15:41] VITALS: BP 137/96; PULSE 74; RESP 18; O2SAT 97
--- NOTE | 2025-03-31 18:33 | ECG ---
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
== END 2025-03-31 15:43 | disposition home or self-care (01) ==
LOC: ER 08:10
DX: H81.12 Benign paroxysmal vertigo, left ear (principal); H91.92 Unspecified hearing loss, left ear; I10 Essential (primary) hypertension; I25.2 Old myocardial infarction; E78.5 Hyperlipidemia, unspecified; I48.91 Unspecified atrial fibrillation; Z85.9 Personal history of malignant neoplasm, unspecified; Z87.891 Personal history of nicotine dependence; Z90.710 Acquired absence of both cervix and uterus
CPT/HCPCS: 82947; 93005; 99284; J8597; 82962

== ENCOUNTER 2025-05-05 05:36 | Emergency (ER) | payer MEDICARE, OTHER ==
[~2025-05-05] VITALS: Ht 175.3 cm; Wt 118.6 kg
[~2025-05-05 05:36] MED LIST changes: +MECL25CH85 PO
--- NOTE | 2025-05-05 06:49 | DVH ---
CHEST RADIOGRAPH Indication: sob Technique: Single frontal view of the chest was obtained COMPARISON: XY CHEST PORTABLE on DOS: 02/13/25, XY CHEST PORTABLE on DOS: 10/27/24, XY CHEST TWO VIEWS R OUTINE on DOS: 10/15/23, CHEST PORTABLE on DOS: 07/21/22, CXRP on DOS: 07/21/22 FINDINGS: Lines and Tubes: None Lungs: Clear Pleura: Trace left pleural effusion. No pneumothorax. Cardiomediastinal contours: Cardiomegaly. Bones: Unremarkable IMPRESSION: 1. Cardiomegaly and trace left pleural effusion.
--- NOTE | 2025-05-05 07:17 | ED.PDOC ---
History of Present Illness HPI Comments 69-YEAR-OLD FEMALE PRESENTS TO THE ER WITH PRIOR MEDICAL HISTORY OF AFIB, CANCER, GERD, HIGH LIPIDS: SURGICAL HISTORY OF HYSTERECTOMY AND THE CHIEF COMPLAINT OF SHORTNESS A BREATH. PATIENT REPORTS THAT SHE HAS BEEN REALLY SICK AFTER SEEING HER SISTER WHO RECENTLY GOT BACK FROM A TRIP TO [place] ON AY WHO JUST TESTED POSITIVE RECENTLY. PATIENT STATES ON HAVING SHORTNESS A BREATH WHICH STARTED LAST NIGHT ASSOCIATED WITH A COUGH/GREEN PHLEGM. PATIENT NOTES ON TAKING A COVID TEST YESTERDAY FOR WHICH SHE WAS NEGATIVE. DENIES CHILLS, FEVER, N/V/D, CP. NO OTHER ASSOCIATED SYMPTOMS, MODIFIERS, RECENT INJURIES OR SICK CONTACTS PRESENT AT THIS TIME. Chief Complaint: Flu like Time Seen by MD: 07:05 Primary Care Provider: JANE Reviewed Notes: Nurses Notes, Medications, Allergies Allergies: Coded Allergies: Morphine (Verified Allergy, Unknown, 05/02/19) Statins (Verified Allergy, Unknown, 03/31/25) Home Meds Active Scripts Meclizine HCl (Antivert) 25 Mg Chw, 50 MG PO TID for 30 Days, #30 TAB.CHEW Prov:SAMI SWAIN MD 03/31/25 Peg 1292-Upm-Ooz Bicarb-Sod Ch (Golytely) [place], 1 APPLIC OR QID, #473 ML Prov:SAFIA BOWLING MD 11/05/24 Amoxicillin & Pot Clavulanate (AUGMENTIN TABLET) 875 Mg Tb, 875 MG PO BID for 5 Days, #10 TAB Prov:DOROTHEA TRIVEDI 10/28/24 Dicyclomine Hcl (BENTYL CAPSULE) 10 Mg Cp, 1 CAP PO BID for 15 Days, #30 CAP 11 Refills Prov:DOROTHEA TRIVEDI 10/28/24 Ondansetron Odt 4MG Tab (ZOFRAN PO) 4 Mg Tb, 4 MG PO PRN for 10 Days, #20 TAB ODT TAB-DISSOLVE IN MOUTH, THEN SWALLOW Prov:DOROTHEA TRIVEDI 10/28/24 Sucralfate (CARAFATE SUSP) 1 Gm/10 Ml Ss, 10 ML PO BID for 30 Days, #600 ML 1 Refill Prov:DOROTHEA TRIVEDI 10/28/24 Prednisone (Prednisone) 20 Mg Tab, 60 MG PO DAILY, #21 MG Prov:MADI MILLER 07/02/24 Tobramycin Sulfate (Tobrex) [address], 2 DROP OP QID, #5 ML Prov:MADI MILLER 07/02/24 Trazodone Hcl (Trazodone Hcl) 100 Mg Tab, 1 TAB PO QPM PRN, #30 TAB 0 Refills Prov:RUDDY MURRAY MD 06/02/24 Meclizine HCl (Meclizine 25) 25 Mg Tab, 25 MG PO QPM for 14 Days, #14 TAB Prov:RUDDY MURRAY MD 06/02/24 Losartan Potassium (Losartan Potassium) 25 Mg Tab, 12.5 MG PO QPM for 30 Days, #15 TAB 1 Refill Prov:RUDDY MURRAY MD 06/02/24 Albuterol Sulfate (Albuterol Sulfate Hfa) 108 Mcg/Act Aer, 108 MCG IN TID, #1 AER Prov:THA SANDS 10/15/23 Reported Medications Gabapentin (Gabapentin) 300 Mg Cap, 300 MG PO, MG 02/13/25 Sertraline Hcl (Sertraline Hcl) 50 Mg Tab, 50 MG PO DAILY for 30 Days, MG 02/13/25 Trazodone Hcl (Trazodone Hcl) 50 Mg Tab, 50 MG PO, MG 02/13/25 Metoprolol Succinate (Metoprolol Succinate Er) 25 Mg Tab, 25 MG PO DAILY for 30 Days, MG 02/13/25 Pantoprazole Sodium (PANTOPRAZOLE SODIUM) 40 Mg Inj, 40 MG IV, INJ 02/13/25 Omeprazole (Gnp Omeprazole) 20 Mg Tab, 40 MG PO, TAB 02/13/25 Warfarin Sodium (Warfarin Sodium) 5 Mg Tab, 2 TAB PO QPM, MG 2 TABLETS (10 MG TOTAL) BY MOUTH AT NIGHT FOR CHRONIC ATRIAL FIBRILLATION 06/01/24 Pravastatin Sodium (PRAVACHOL TABLET) 20 Mg Tb, 10 MG PO DAILY, TAB 06/01/24 Diltiazem Hcl (Dilt-Xr) 180 Mg Cap, 180 MG PO BID, CAP 06/01/24 Fluoxetine HCl (Pmdd) (Fluoxetine HCl) 10 Mg Tab, 30 MG PO DAILY, TAB 06/01/24 Information Source: Patient Mode of Arrival: EMS Severity: Moderate Timing: Hours Duration: Since onset, Hours Prehospital treatment: None Past Medical History PAST MEDICAL HISTORY: AFIB, Cancer, GERD, High Lipids Surgical History: Hysterectomy FILM TESTS CHECKER History: No Pertinent FILM TESTS CHECKER History Family History Family History: Reviewed,noncontributory to illness, Unknown Social History Smoker: Quit Greater Than 1 Year Alcohol: Denies ETOH Use Drugs: Denies Drug Use Lives In: Home Constitutional: denies: chills, diaphoresis, fatigue, fever, malaise, sweats, weakness, others EENTM: denies: blurred vision, double vision, ear bleeding, ear discharge, ear drainage, ear pain, ear ringing, eye pain, eye redness, hearing loss, mouth pain, mouth swelling, nasal discharge, nose bleeding, nose congestion, nose pain, photophobia, tearing, throat pain, throat swelling, voice changes, others Respiratory: reports: cough, shortness of breath; denies: hemoptysis, orthopnea, SOB at rest, SOB with excertion, stridor, wheezing, others Cardiovascular: denies: chest pain, dizzy spells, diaphoresis, Dyspnea on exertion, edema, irregular heart beat, left arm pain, lightheadedness, palpitations, PND, syncope, others Gastrointestinal: denies: abdomen distended, abdominal pain, blood streaked bowels, constipated, diarrhea, dysphagia, difficulty swallowing, hematemesis, melena, nausea, poor appetite, poor fluid intake, rectal bleeding, rectal pain, vomiting, others Genitourinary: denies: abnormal vagina bleeding, burning, dyspareunia, dysuria, flank pain, frequency, hematuria, incontinence, pain, , vagina discharge, urgency, others Neurological: denies: dizziness, fainting, headache, left sided numbness, left sided weakness, numbness, paresthesia, pre-existing deficit, right sided numbness, right sided weakness, seizure, speech problems, tingling, tremors, weakness, others Musculoskeletal: denies: back pain, gout, joint pain, joint swelling, muscle pain, muscle stiffness, neck pain, others Integumetry: denies: bruises, change in color, change in hair/nails, dryness, laceration, lesions, lumps, rash, wounds, others Allergic/Immunocompromised: denies: Difficulty Healing, Frequent Infections, Hives, Itching, others Hematologic/Lymphatic: denies: anemia, blood clots, easy bleeding, easy bruising, swollen glands, others Endocrine: denies: excessive hunger, excessive sweating, excessive thirst, excessive urination, flushing, intolerance to cold, intolerance to heat, unexplained weight gain, unexplained weight loss, others Psychiatric: denies: anxiety, bipolar disorder, depression, hopeless, panic disorder, schizophrenia, sleepless, suicidal, others All Other Systems: Reviewed and Negative Physical Exam General Appearance: No Apparent Distress, Normal HEENT: Normal ENT Inspection, Pharynx Normal, TMs Normal Neck: Full Range of Motion, Non-Tender, Normal, Normal Inspection Respiratory: Chest Non-Tender, Lungs Clear, No Accessory Muscle Use, No Respiratory Distress, Normal Breath Sounds, Other (COUGH WITH PHLEGM) Cardiovascular: No Edema, No JVD, No Murmur, No Gallop, Normal Peripheral Pulses, Regular Rate/Rhythm Breast Exam: Deferred Gastrointestinal: No Organomegaly, Non Tender, No Pulsatile Mass, Normal Bowel Sounds, Soft Genitalia: Deferred Pelvic: Deferred Rectal: Deferred Extremities: No calf tenderness, Normal capillary refill, Normal inspection, Normal range of motion, Non-tender, No pedal edema Musculoskeletal : Apperance: Normal Neurologic: Alert, rn new grad II-XII nml as Tested, No Motor Deficits, Normal Affect, Normal Mood, No Sensory Deficits Cerebellar Function: Normal Reflexes: Normal Skin: Dry, Normal Color, Warm Lymphatic: No Adenopathy Was a procedure done? Was a procedure done?: No Differential Dx Considerations may include: Viral syndrome, ACS, electrolyte abnormality X-Ray, Labs, Meds, VS Vital Signs Date Time Temp Pulse Resp B/P (MAP) Pulse Ox O2 Delivery O2 Flow Rate FiO2 05/05/25 08:31 98.5 91 16 124/84 (97) 93 98.5 05/05/25 05:42 100 05/05/25 05:40 98.2 85 16 135/98 94 98.2 Lab Test 05/05/25 07:46 05/05/25 07:14 Range/Units Influenza Type A Antigen Negative Negative Influenza Type B Antigen Negative Negative SARS-CoV-2 Antigen (Rapid) Negative NEGATIVE White Blood Count 6.7 4.4-10.8 10^3/uL Red Blood Count 5.65 H 4.0-5.20 10^6/uL Hemoglobin 17.2 H 12.2-16.2 g/dL Hematocrit 51.4 H 36.0-46.0 % Mean Corpuscular Volume 90.9 80.0-100.0 fL Mean Corpuscular Hemoglobin 30.4 28.0-32.0 pg Mean Corpuscular Hemoglobin Concent 33.5 32.0-36.0 g/dL Red Cell Distribution Width 14.9 H 11.8-14.3 % Platelet Count 214 140-450 10^3/uL Mean Platelet Volume 8.1 6.9-10.8 fL Neutrophils (%) (Auto) 78.8 37.0-80.0 % Lymphocytes (%) (Auto) 8.2 L 10.0-50.0 % Monocytes (%) (Auto) 9.2 0.0-12.0 % Eosinophils (%) (Auto) 3.2 0.0-7.0 % Basophils (%) (Auto) 0.6 0.0-2.0 % Neutrophils # (Auto) 5.3 1.6-8.6 10 ^3/uL Lymphocytes # (Auto) 0.6 0.4-5.4 10 ^3/uL Monocytes # (Auto) 0.6 0-1.3 10 ^3/uL Eosinophils # (Auto) 0.2 0-0.8 10 ^3/uL Basophils # (Auto) 0 0-0.2 10 ^3/uL Nucleated Red Blood Cells 0.0 % Sodium Level 139 136-145 mmol/L Potassium Level 4.5 3.5-5.1 mmol/L Chloride Level 103 98-107 mmol/L Carbon Dioxide Level 28 20-31 mmol/L Anion Gap 8 5-15 Blood Urea Nitrogen 19 9-23 mg/dL Creatinine 1.11 H 0.550-1.02 mg/dL Glomerular Filtration Rate Calc 54 >90 mL/min BUN/Creatinine Ratio 17.1 10.0-20.0 Serum Glucose 105 74-106 mg/dL Calcium Level 10.0 8.7-10.4 mg/dL Troponin I High Sensitivity 4 </=34 ng/L Time of 1ST Reevaluation: 07:35 Reevaluation 1ST: Unchanged Patient Education/Counseling: Diagnosis, Treatment, Prognosis Family Education/Counseling: No Family Present SEPSIS Sepsis Screen Date sepsis recognized/suspect: May 05, 2025 Time Sepsis recognized/suspect: 0540 Recent Procedure: No On Antibiotic Therapy: No Respiratory Rate >20: No Heart Rate >90: No Temp<36 C (96.8 F) or >38.3 C: No SBP <90 or MAP <65 mmHG: No New Acute Mental Status Change: No Is the patient on CPAP, BIPAP,: No Physician Orders Chest Portable (05/05/25 06:11) Vital Signs Date Time Temp Pulse Resp B/P (MAP) Pulse Ox O2 Delivery O2 Flow Rate FiO2 05/05/25 08:31 98.5 91 16 124/84 (97) 93 98.5 05/05/25 05:42 100 05/05/25 05:40 98.2 85 16 135/98 94 98.2 Laboratory Tests Test 05/05/25 07:14 White Blood Count 6.7 10^3/uL (4.4-10.8) Departure 1 Departure Time of Disposition: 11:28 (Patient likely with a viral syndrome. We will discharge patient home with outpatient follow up) Impression: Primary Impression: Acute viral syndrome Disposition: 01 HOME / SELF CARE / HOMELESS Condition: Stable Additional Instructions: You likely have a viral illness. It is important to stay well rested and well hydrated. You can take Tylenol and Motrin as needed for pain and fever. For a sore throat you can drink warm tea with honey. You can take [id number] pseudoephedrine for nasal congestion. He should follow up with your regular doctor within 1 week to ensure you are doing better. If your symptoms worsen or you have any other concerns please return to the emergency room. Discharged With: Self Critical Care Note Critical Care Time?: No Stability Stability form required: No I personally scribed for ROBERT OLVERA MD ([email or web address]) on 05/05/25 at 07:17. Elec tronically submitted by Waqas Hwang ([email or web address]). ROBERT OLVERA MD May 05, 2025 07:17
[2025-05-05 07:33] LABS: Chloride 103 mmol/L (98-107); Potassium 4.5 mmol/L (3.5-5.1); Sodium 139 mmol/L (136-145)
[2025-05-05 07:34] LABS: Anion Gap 8 (5-15); Calcium 10.0 mg/dL (8.7-10.4); Carbon Dioxide 28 mmol/L (20-31)
[2025-05-05 07:35] LABS: Hematocrit 51.4 % (36.0-46.0); Hemoglobin 17.2 g/dL (12.2-16.2); Mean Corpuscular Hemoglobin 30.4 pg (28.0-32.0); Mean Corpuscular Volume 90.9 fL (80.0-100.0); Nucleated Red Blood Cells % 0.0 %
[2025-05-05 07:39] LABS: BUN/Creatinine Ratio 17.1 (10.0-20.0); Blood Urea Nitrogen 19 mg/dL (9-23); Glucose 105 mg/dL (74-106)
[2025-05-05 08:20] LABS: COVID19 ANTIGEN SOFIA FIA NEGATIVE (NEGATIVE)
--- NOTE | 2025-05-05 10:57 | ECG ---
[facility] Test Date: 2025-05-05 Test Time: 05:42:22 Pat Name: DANIELLE COUGHLIN Department: Room: Gender: F Collection Card Clerk: JORDAN : 1955 Requested By: EMERGENCY EMERGENCY Order Number: [id number] Reading MD: Measurements Intervals [place] Rate: 100 P: 0 MS: 0 QRS: 205 QRSD: 89 T: 35 QT: 352 QTc: 454 Interpretive Statements Atrial fibrillation Right axis deviation Low voltage, precordial leads Probable anteroseptal infarct, old Baseline wander in lead(s) II Please click the below link to view image of tracing.
[2025-05-05] MEDS: IBUPROFEN 400 MG TAB PO ONE (11:39)
[2025-05-05] MEDS: ACETAMINOPHEN 325 MG TAB PO ONE (11:40)
[2025-05-05 11:43] VITALS: BP 151/97; PULSE 88; RESP 16; TEMP 98.7; O2SAT 95
== END 2025-05-05 11:52 | disposition home or self-care (01) ==
LOC: EDBD 05:36 → ER 05:36
DX: B34.9 Viral infection, unspecified (principal); R06.02 Shortness of breath; Z88.8 Allergy status to other drugs, medicaments and biological substances; Z90.710 Acquired absence of both cervix and uterus; Z88.5 Allergy status to narcotic agent; Z79.899 Other long term (current) drug therapy; Z20.822 Contact with and (suspected) exposure to COVID-19
CPT/HCPCS: 36415; 71045; 80048; 84484; 85025; 87426; 87804; 93005